=== PATIENT | female | born 1940 | race Caucasian/White ===

== ENCOUNTER → 2017-08-19 10:31 | Outpatient (CLI) | payer MEDICARE, OTHER, SELFPAY ==
--- NOTE | 2017-08-19 10:37 | HPBI_ITS ---
MAMMOGRAPHY - BILATERAL SCREENING REASON FOR EXAM: Female, 77 years old. Routine annual screening examination. PERTINENT HISTORY: Non-contributory. TECHNIQUE: Digital bilateral breast garcia (3D mammographic acquisition) in the CC and MLO projections. 2-D mediolateral oblique (MLO) and craniocaudad (CC) views of both breasts were obtained. CAD: Full Field Digital Mammography with Computer Added Detection was performed. COMPARISON: Comparison is made with prior outside examination dated October 13, 2015. FINDINGS: Breast Composition: There are scattered areas of fibroglandular density. There are no dominant masses or suspicious calcifications. Stable benign-appearing bilateral axillary lymph nodes. No other significant abnormalities are identified. There has been no significant change since the prior study. HPBI/SCREENING MAMM (CAD), BILAT IMPRESSION: Stable bilateral screening mammogram. Yearly follow-up mammogram recommended. (A) ASSESSMENT CATEGORY: BIRADS Category 2: Benign. A letter regarding these results will be sent to the patient by the facility within 30 days. Approximately 10% of breast cancers are not detected by mammography. A normal mammogram should not delay biopsy of a clinically suspicious abnormality. [id number] Electronically Signed: Carlos Manuel Franco MD at 8:28 EDT Tel [phone], Service support ,
== END ==
PROVIDERS: Family Provider Internal Medicine; PCP Internal Medicine; Visit Provider Internal Medicine
DX: Z12.31 Encounter for screening mammogram for malignant neoplasm of breast (principal)
CPT/HCPCS: 77063; 77067

== ENCOUNTER 2017-09-13 07:15 | Day surgery (SDC) | payer MEDICARE, OTHER, SELFPAY ==
[2017-09-13] VITALS (9 sets, daily range): BP systolic 104–142; BP diastolic 56–87; PULSE 58–80; RESP 16–18; TEMP 36.2–37; O2SAT 95–99; BMI 29.0
--- NOTE | 2017-09-13 08:48 | COLBX_PTH ---
PATIENT: CAITY MORALES LOC: EN U#:[id number] AGE/SX: 77/F ROOM: RE09/13/[address]: Dr. Jovanny Kate MD : 1940 BED: DIS: 09/14/2017 SPEC #: [id number] RECD: 09/13/17 11:01 STATUS: MELLISSA ARY #: [id number] [place]: 09/13/17 08:[address]: Jovanny Kate DEPT: SURGICAL PATHOLOGY RECD BY: Broderick Moe ENTERED: 09/13/17 12:35 SP TYPE: COLON BX OTHR DR: Dr. Mera Rodrigues DO Tissues: Descending colon Procedures: Surgery Specimen Level IV HEADER OPERATION: Colonoscopy PRE-OP DIAGNOSIS: Screening TISSUE SUBMITTED: Descending colon polyp MICROSCOPIC DIAGNOSIS Descending colon polyp, biopsy: Tubular adenoma. AM:henry 09/14/17 COMMENT The cauterized margin of excision is free of adenomatous change. MICROSCOPIC DESCRIPTION Slides are reviewed. GROSS DESCRIPTION Received in fixative is one container labeled with the patient's name and designated descending colon polyp. The specimen consists of a pedunculated richey-pink polyp measuring 1 x 0.5 x 0.5 cm. The pedicle measures 0.5 cm in length and 0.5 cm in diameter. The base of the polyp is inked black. The polyp is bisected and submitted entirely in one cassette. / SJ:rg 09/13/17 TC:1 CPT: 50502
--- NOTE | 2017-09-13 09:29 | PCM.OPRPT ---
Problem List (1) Positive colorectal cancer screening using Cologuard test Status: Acute Report of Operation Date of Procedure: 09/13/17 Pre-Operative Diagnosis: r19.5 positive colorectal cancer screening using colon guard test Post-Operative Diagnosis: Same Surgery/Procedure Performed:: Colonoscopy with polypectomy with injection of epinephrine and placement of clips for hemostasis. Type of Anesthesia:: MAC Anesthesiologist: Garry Barillas Description of Procedure: Into the operating room and placed in the left lateral decubitus position. She was given graded anesthesia. The scope was inserted into the rectum and directed through the sigmoid colon, descending colon, transverse colon, ascending colon, to the cecum. Operative findings: 1. Cecum: Normal appearance no mass lesions normal ileocecal valve. 2. Ascending colon: Normal appearance no mass lesions. 3. Transverse colon: Normal appearance no mass lesions. 4. Descending colon: Normal appearance no mass lesions. 5. Sigmoid colon: Large polyp on a long stalk was identified I remove this with snare cautery technique I had bleeding at the base in which I had to inject epinephrine approximately 3 cc and I placed 3 clips on this area to achieve hemostasis. I probably lost close to 50 cc of blood during this part of the procedure. The polyp was retrieved and sent to pathology for permanent sectioning 6. Rectum: Normal appearance no mass lesions. Patient will more likely need to have another colonoscopy between 1 and 3 years depending on the path report. I am going to keep the patient overnight secondary to the bleeding that we encountered to make sure that we have no further blood loss. - Admit VTE Documentation VTE Present on Admission: No VTE Mechan Device Prophylaxis: None VTE Pharm Prophylaxis ordered?: No Reason prophylaxis not ordered:: Treatment Not Indicated
--- NOTE | 2017-09-13 09:36 | PCM.PN.SRG ---
Patient Problems: Active and Suspected Problems (Last Reviewed 08/28/17 @ 13:50 by Jovanny Kate MD) Positive colorectal cancer screening using Cologuard test (Acute) Subjective: Patient underwent a colonoscopy and had a polyp in the sigmoid colon I removed with snare cautery technique but I ran into significant amount of bleeding from the base of this. It took quite some time to retrieve the polyp as well as to inject the base of the polyp with approximately 3 cc of epinephrine. I was able to place 3 clips on the area and when finished I had good hemostasis. Given the fact though that I lost so much blood I think it is quinonez to keep her overnight for observation. Objective: Patient's abdomen is soft and nontender it is not distended. - Physical Exam Vital Signs Temp Pulse Resp BP Pulse Ox 97.1 F L 74 18 113/80 95 09/13/17 07:31 09/13/17 07:31 09/13/17 07:31 09/13/17 07:31 09/13/17 07:31 Oxygen Delivery Method Room Air Weight: 163 lb 12.855 oz Body Mass Index (BMI) 29.0 Medical Necessity - Tobacco Use Smoking Status: Never smoker Assessment/Plan Active and Suspected Problems (Last Reviewed 08/28/17 @ 13:50 by Jovanny Kate MD) Positive colorectal cancer screening using Cologuard test (Acute) We will keep the patient overnight for observation obtain some laboratory values to make sure her hemoglobin remained stable. She will be able to be discharged hopefully in the morning.
[2017-09-13 10:12] LABS: Hematocrit 37.9 % (37-47); Hemoglobin 12.7 g/dl (12.0-15.0); Mean Corp Hgb Conc 33.5 g/gl (32-36); Mean Corpuscular Hgb 30.8 pg (27.0-32.0); Mean Platelet Vol. 8.7 fl (6.2-12.0); Platelet Count 214 K/mm3 (150-450); RBC Distribution Width CV 13.1 % (11.6-14.6); RBC Distribution Width SD 44.1 fl (35.1-43.9); Red Blood Count 4.12 M/mm3 (4.2-5.4); Scan Indicated on CBC? Y/N NO; White Blood Count 6.1 K/mm3 (4.4-11.0)
--- NOTE | 2017-09-13 10:25 | RAD_ITS ---
STUDY: X-RAY - ABDOMEN/PELVIS REASON FOR EXAM: Female, 77 years old. Abdominal distention following a colonoscopy. TECHNIQUE: AP supine and upright views of the abdomen and pelvis. COMPARISON: None. FINDINGS: Normal visualized lung bases. Mild gaseous distention of the colon with her mild residual fecal material. There is no demonstrated free abdominal air. The visualized liver, spleen and kidneys are grossly normal in size and morphology. Normal soft tissue structures. Normal visualized osseous structures. RAD/Abdomen Single View IMPRESSION: Gas filled colon in keeping with recent colonoscopy. Electronically Signed: Carlos Manuel Franco MD at 10:39 EDT Tel [phone], Service support ,
[2017-09-13] MEDS: Lactated Ringers 1,000 ML 70 ML IV (17:44)
[2017-09-14 02:00] VITALS: BP 102/48; PULSE 79; RESP 16; TEMP 36.9; O2SAT 98
--- NOTE | 2017-09-14 07:06 | PCM.PN.SRG ---
Patient Problems: Active and Suspected Problems (Last Reviewed 08/28/17 @ 13:50 by Jovanny Kate MD) Positive colorectal cancer screening using Cologuard test (Acute) Subjective: Patient evaluated resting comfortably in the chair. She denies rectal bleeding overnight. She denies abdominal pain/cramping. - Physical Exam General: Alert, Oriented x3, Cooperative Abdomen: Bowel Sounds Present, Soft, Non Tender, Non-Distended Vital Signs Temp Pulse Resp BP Pulse Ox 98.5 F 79 16 102/48 L 98 09/14/17 02:00 09/14/17 02:00 09/14/17 02:00 09/14/17 02:00 09/14/17 02:00 Oxygen Delivery Method Room Air Weight: 163 lb 12.855 oz Body Mass Index (BMI) 29.0 Intake and Output for Last 24 Hours 09/12/17 09/13/17 09/14/17 23:59 23:59 23:59 Intake Total 2950 / 2950 329 / 329 Balance 2950 / 2950 329 / 329 Laboratory Tests Past 24 Hrs 09/13/17 10:02 WBC 6.1 RBC 4.12 L Hgb 12.7 Hct 37.9 MCV 92.0 MCH 30.8 MCHC 33.5 RDW 13.1 RDW Differential 44.1 H Plt Count 214 MPV 8.7 Medical Necessity - Tobacco Use Smoking Status: Never smoker Assessment/Plan Active and Suspected Problems (Last Reviewed 08/28/17 @ 13:50 by Jovanny Kate MD) Positive colorectal cancer screening using Cologuard test (Acute) I am following this patient in conjunction with Dr. Kate Impression: post polypectomy bleed Ready for discharge
--- NOTE | 2017-09-14 07:09 | PCM.DC.GS ---
Discharge Diet: No Restrictions Discharge Activity: Return to Normal Activity Call your doctor if your incision/area has: - - Bleeding from the rectum Allergies/Adverse Reactions: Allergies Penicillins Allergy (Verified 09/06/17 15:47) Rash Medications to take at Discharge calcium carbonate 600 mg (1,500 mg)-vitamin D3 400 unit tablet 1 tab PO QDAY 08/28/17 cholecalciferol (vitamin D3) 1,000 unit capsule 2,000 unit PO QDAY cap 08/28/17 multivitamin tablet 1 tab PO QDAY 08/28/17 omega-3 fatty acids-fish oil 300 mg-1,000 mg capsule 1 cap PO QDAY cap 08/28/17 vitamin B complex tablet 1 tab PO QWEEK 08/28/17 Primary Care Physician: Mera Rodrigues DO [Primary Care Provider] - Please Follow Up With: Jovanny Kate MD - [phone] When: 1 week at [facility] 2nd floor Proposed Discharge Date: 09/14/17
[2017-09-14 07:10] VITALS: BP 153/73; PULSE 73; RESP 14; TEMP 36.8; O2SAT 96
== END 2017-09-14 07:10 | disposition home or self-care (01) ==
LOC: EN 07:15 → AC 07:17 → MS2 10:10
PROVIDERS: Family Provider Internal Medicine; PCP Internal Medicine; Visit Provider Surgery
PROC: 0DJD8ZZ Inspection of Lower Intestinal Tract, Via Natural or Artificial Opening Endoscopic (ICD-10-PCS; CPT 45378; principal; 2017-09-13 08:25)
DX: D12.4 Benign neoplasm of descending colon (principal); R19.5 Other fecal abnormalities; E55.9 Vitamin D deficiency, unspecified; Z78.0 Asymptomatic menopausal state
CPT/HCPCS: 45385; 36415; 74018; 85027; 88305; J7120; J1610

== ENCOUNTER → 2018-12-31 13:42 | Outpatient (CLI) | payer MEDICARE, OTHER, SELFPAY ==
--- NOTE | 2018-12-31 13:46 | BI_ITS ---
MAMMOGRAPHY - BILATERAL DIAGNOSTIC REASON FOR EXAM: Female, 78 years old. Nipple discharge PERTINENT HISTORY: Non-contributory. TECHNIQUE: Digital examination. Mediolateral oblique (MLO) and craniocaudad (CC) views of both breasts were obtained, along with 3-D garcia synthesis. CAD: CAD was performed on this study. COMPARISON: 08/19/2017 FINDINGS: Breast Composition: There are scattered areas of fibroglandular density. There is asymmetric retroareolar density in the right breast which needs further evaluation with ultrasound. No other significant abnormalities are identified. BI/DIAG MAMM W/CAD, BILAT IMPRESSION: Further ultrasonographic evaluation recommended, as described above. ASSESSMENT CATEGORY: BIRADS Category 0: Incomplete. Need additional imaging evaluation. A letter regarding these results will be sent to the patient by the facility within 30 days. FOLLOW UP RECOMMENDATION: Ultrasound Recommended. (I) Approximately 10% of breast cancers are not detected by mammography. A normal mammogram should not delay biopsy of a clinically suspicious abnormality. Electronically Signed: García King MD at 14:39 EDT , Service support ,
--- NOTE | 2018-12-31 13:46 | US_ITS ---
STUDY: ULTRASOUND BREAST - RIGHT REASON FOR EXAM: Female, 78 years old. Nipple discharge TECHNIQUE: Axial and longitudinal images of the RIGHT breast were performed with a high resolution ultrasound transducer. COMPARISON: None. FINDINGS: RIGHT Breast: Ultrasound evaluation of the retroareolar region of the right breast shows only normal dense fibroglandular tissue. There is no suspicious solid or cystic mass, architectural distortion, or shadowing calcifications. US/Breast Limited Unilateral IMPRESSION: No suspicious sonographic findings ASSESSMENT CATEGORY: BIRADS Category 1: Negative. A letter regarding these results will be sent to the patient by the facility within 30 days. Electronically Signed: García King MD at 15:10 EDT , Service support ,
== END ==
PROVIDERS: Family Provider Internal Medicine; PCP Internal Medicine; Referring Provider Nurse Practitioner; Visit Provider Nurse Practitioner
DX: N64.52 Nipple discharge (principal)
CPT/HCPCS: 76642; 77062; 77066; G0279

== ENCOUNTER → 2020-01-02 09:50 | Outpatient (CLI) | payer MEDICARE, OTHER, SELFPAY ==
[2019-08-08 06:05] VITALS: BMI 30.5
--- NOTE | 2020-01-02 09:53 | BD_ITS ---
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 COMPARISON: Comparison is made with prior examination dated 03-17-16. FINDINGS: Lumbar Spine (L1-L4): g/cm2 (1.098) / T-score (-0.6) / Z-score (1.2) Findings are suggestive of normal bone density with a low fracture risk. Left Femur Total: g/cm2 (0.937) / T-score (-0.6) / Z-score (1.4) Left Femoral Neck: g/cm2 (0.873) / T-score (-1.2) / Z-score (0.9) Right Femur Total: g/cm2 (0.954) / T-score (-0.4) / Z-score (1.5) Right Femoral Neck: g/cm2 (0.905) / T-score (-1.0) / Z-score (1.1) The T-Scores on the most recent prior examination were: Lumbar Spine (L1-L4): There has been improvement of bone density since the previous examination. Left Femur Total: which represents no significant change. . Right Femur Total: which represents a worsening of 0.3%. BD/Dexa Bone Density Study IMPRESSION: The patient is considered osteopenic as outlined below according to World David Organization (WHO) criteria with a low fracture risk. There has been improvement of bone density since the previous examination. Reference Information: The T-score is the number of standard deviations above or below the standard which is normal for young adults at their peak bone mineral density. The World Health Organization (WHO) interprets the T-scores as follows: Above -1 Normal bone density Between -1 and -2.5 Osteopenia Equal to / or below -2.5 Osteoporosis As a practical clinical guideline, osteopenia may be graded as follows: Mild -1 through -1.5 Moderate -1.6 through -2.0 Severe -2.1 through -2.4 The Z-score is the number of standard deviations above or below age-matched controls. A Z-score of less than -1.5 would be considered abnormal. References: 1. NIH Osteoporosis and Related Bone Diseases http://www.osteo.org 2. International Society for Clinical Densitometry http://www.iscd.org 3. National Osteoporosis Foundation http://www.nof.org Electronically Signed: Carlos Manuel Franco, at 8:43 EDT , Service support ,
--- NOTE | 2020-01-02 10:28 | BI_ITS ---
MAMMOGRAPHY - BILATERAL SCREENING 3-D TOMOSYNTHESIS REASON FOR EXAM: Female, 79 years old. Routine screening PERTINENT HISTORY: NO FAM HX -- NO SX -- HX BLOODY DISCHARGE RT NIPPLE RT U/S DONE =NEGATIVE -- BILAT KERATOSIS FLAT -NOT MARKED. TECHNIQUE: 2-D mammograms and 3-D Tomosynthesis of the breast (s) were performed. CAD was performed. COMPARISON: 12/31/2018 FINDINGS: The breast composition is composed of scattered fibroglandular density. Scattered benign calcifications are seen. No dense spiculated masses or suspicious microcalcifications are identified. No architectural distortion is identified. There is no skin thickening or retraction. There has been no significant change since the prior study. BI/SCREEN MAMM (CAD) W/ALEJANDRA BILAT IMPRESSION: No mammographic signs of malignancy. Routine yearly mammograms recommended. ASSESSMENT CATEGORY: BIRADS Category 1: Negative. A letter regarding these results will be sent to the patient by the facility within 30 days. FOLLOW UP RECOMMENDATION: Yearly follow up mammogram recommended. (A) Approximately 10% of breast cancers are not detected by mammography. A normal mammogram should not delay biopsy of a clinically suspicious abnormality. Electronically Signed: García King MD at 11:48 EDT , Service support ,
== END ==
PROVIDERS: PCP Internal Medicine; Referring Provider Internal Medicine; Visit Provider Internal Medicine
DX: Z12.31 Encounter for screening mammogram for malignant neoplasm of breast (principal); Z78.0 Asymptomatic menopausal state
CPT/HCPCS: 77063; 77067; 77080

== ENCOUNTER 2020-01-15 07:21 | Day surgery (SDC) | payer MEDICARE, OTHER, SELFPAY ==
[2020-01-06 13:19] VITALS: BMI 30.8
--- NOTE | 2020-01-10 09:06 | EKG12_ITS ---
Test Reason : PREOP Blood Pressure : / mmHG Vent. Rate : 064 BPM Atrial Rate : 064 BPM P-R Int : 184 ms QRS Dur : 094 ms QT Int : 400 ms P-R-T Axes : 073 043 071 degrees QTc Int : 412 ms Sinus rhythm with Premature atrial complexes Otherwise normal ECG Confirmed by DARIO FROST, DORIS ([id number]), avid editor FARZANA BISHOP ([id number]) on 01/13/2020 2:05:39 PM Referred By: De Higgins Confirmed By:RJ BISHOP MD
[2020-01-10 09:35] LABS: Hematocrit 41.9 % (37-47); Hemoglobin 13.7 g/dL (12.0-15.0); Mean Corp Hgb Conc 32.7 g/dL (32-36); Mean Corpuscular Hgb 30.8 pg (27.0-32.0); Mean Corpuscular Volume 94.2 fL (81-99); Platelet Count 264 K/mm3 (150-450); RBC Distribution Width CV 12.7 % (11.6-14.6); RBC Distribution Width SD 43.8 fl (35.1-43.9); Red Blood Count 4.45 M/mm3 (4.2-5.4); White Blood Count 4.3 K/mm3 (4.4-11.0)
[2020-01-10 09:50] LABS: Anion Gap 1 (5-15); BUN 19 mg/dL (7-18); BUN/Creat Ratio 26.4 RATIO (10-20); Calcium,Total 9.1 mg/dL (8.5-10.1); Chloride 108 mmol/L (98-107); Creatinine, Serum 0.72 mg/dL (0.55-1.02); EST Glomerular Filtration Rate 83 mL/min (>60); Est Glom Filt Rate - Afr Amer 100 mL/min (>60); Glucose 98 mg/dL (74-106); Potassium 4.1 mmol/L (3.5-5.1); Sodium Level 140 mmol/L (136-145)
--- NOTE | 2020-01-15 | MISC_PTH ---
PATIENT: CAITY MORALES LOC: [facility] [place] U#:[id number] AGE/SX: 79/F ROOM: RE01/15/[address]: Dr. De Higgins MD : 1940 BED: DIS: 01/15/2020 SPEC #: [id number] RECD: 01/15/20 11:01 STATUS: MELLISSA ARY #: [id number] [place]: 01/15/20 00:[address]: De Higgins DEPT: SURGICAL PATHOLOGY RECD BY: Kalyan Ramírez ENTERED: 01/15/20 11:02 SP [place] [facility] [place]: Dr. 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 See cancer summary in the comment section. SJ:rg 01/17/20 COMMENT DUCTAL CARCINOMA IN SITU SUMMARY Procedure - excision Specimen - excisional biopsy Specimen laterality - right Tumor site - retroareolar tissue Size (extent) of DCIS: Estimated size of DCIS - 1.7 x 1.3 cm Number of blocks with DCIS - 2 Number of block examined - 2 Histologic type - ductal carcinoma in situ Architectural pattern - papillary and micropapillary Nuclear grade - nuclear grade 1 Necrosis - not identified Margin - margins uninvolved by DCIS. The tumor is 1 mm from the closest margin. Regional lymph nodes - no lymph nodes submitted or found. Microcalcifications - not identified Additional Pathologic Findings: -Nipple adenoma. - Focal atypical ductal hyperplasia. Ancillary Studies ([id number]): ER - >95%, strong intensity AR - >95%, strong intensity Her2 aki (IHC) - negative (0) Clinical history - bloody nipple discharge. Pathologic Staging: pTis(DCIS) pNx pMx The above summary is in compliance with College of [place] Path[employer] (CAP) Cancer Protocols Checklist and [place] Joint Committee on Cancer (AJCC), Staging Manual, 8th Ed. Immunohistochemistry ([id number]) supports the above diagnosis. Case has been reviewed in consultation with Dr. Dupree who concurs with the above diagnosis. IDC:AM MICROSCOPIC DESCRIPTION Slides are reviewed. GROSS DESCRIPTION Received in fixative is one container labeled with the patient's name and designated retroareolar tissue. The specimen consists of an irregular fragment of yellow fatty tissue measuring 3.5 x 2 x 1 cm. Sections reveal homogenous yellow cut surfaces. No mass lesion is identified. The specimen is sectioned and totally submitted in two cassettes. / AM:henry 01/15/20 TC:0 CPT:63943
--- NOTE | 2020-01-15 | IMM_PTH ---
PATIENT: CAITY MORALES LOC: [facility] [place] U#:[id number] AGE/SX: 79/F ROOM: RE01/15/[address]: Dr. De Higgins MD : 1940 BED: DIS: 01/15/2020 SPEC #: [id number] RECD: 01/17/20 12:40 STATUS: MELLISSA REQ #: [id number] [place]: 01/15/20 00:[address]: De Higgins DEPT: IMMUNOHISTOCHEMISTRY RECD BY: Roxana Scott ENTERED: 01/17/20 12:41 SP TYPE: IMMUNO OTHR DR: Dr. Mera Rodrigues DO Tissues: Right breast, NOS Procedures: CALPONIN-1 (add) CK8 (add) E-CAD (add) HER2 JAYDEN (add) DE (add) P40 (add) ER (initial) PHYSICIAN & INSTITUTION [place] [id number] SPECIMEN INFORMATION: Tissue Source: Right retroareolar tissue Clinical Info: Bloody nipple discharge Specimen Number: [id number] #1 CPT code: 92884, 36054 x3, 45209 x3 METHODOLOGY: Deparaffinized sections of prefer/formalin-fixed tissue or PAP/DQ stained slides are incubated with monoclonal/polyclonal antibodies/oligonucleotide probes. Localization is made via biotin free immunoperoxidase method. Appropriate controls are performed and reacted as expected. Results on target cell population are indicated in the following table: RESULTS: ANTIBODY / CLONE RESULT Block 1 E-Cad (ECH-6) positive CK8 ([id number]) positive Calponin-1 (JS173M) positive, focal P40 (BC28) positive, focal MORPHOMETRIC ANALYSIS ER (clone 6F11) >95%, strong intensity DE (clone 16/1E2) >95%, strong intensity Her-2Neu (clone CB11) negative (0) The prognostic test for HER2 is performed on formalin-fixed paraffin embedded tissue. A 3+ (positive) staining pattern is defined as intense, homogeneous, complete, circumferential membranous staining in >10% of contiguous tumor cells. A similar weak (2+) staining pattern is interpreted as equivocal. MIKE follow-up testing is recommended for all equivocal cases. Positivity/negativity for ER/DE is reported if > or < 1% of the tumor cells are immuno- reactive, respectively. The ASCO/CAP criteria is used for scoring. Reference: Journal of Clinical Oncology, 2013; 31:6488-2847 & 2010; 16:0569-3241. Duration of fixation: 10 Hrs; Sample Adequate: Yes. These assays have not been validated on decalcified tissues. Results should be interpreted with caution given the likelihood of false negativity on decalcified specimens. These tests were developed and their performance characteristics determined by [facility]. They may not have been cleared or approved by the U.S. Food and Drug Administration. The FDA has determined that such clearance or approval is not necessary. The above immunohistochemical/dualISH markers are ordered and reviewed by the Pathologist. INTERPRETATION: Right retroareolar tissue, biopsy: Ductal carcinoma in situ. SJ:henry 01/20/20 Case has been reviewed in consultation with Dr. Dupree who concurs with the above diagnosis. IDC:AM
[2020-01-15 07:42] VITALS: BP 145/75; PULSE 70; RESP 16; TEMP 36.8; O2SAT 97; BMI 30.9
[2020-01-15] MEDS: Lactated Ringers 1,000 ML 100 ML IV ×2 (07:56→10:39)
--- NOTE | 2020-01-15 09:05 | HP.PCM_ITS ---
Problem List (1) Nipple discharge, bloody Status: Acute History and Physical Date of Admission: 01/15/20 Intake Visit Reasons: 1 YEAR F/U R BRST, MAMMO 01/02/2020 [facility] Chief Complaint: follow up mammogram/nipple discharge Fruit Grower Required: No Is patient in pain?: No Allergies Penicillins Allergy (Verified 01/06/20 13:00) Rash Medications calcium carbonate 500 mg calcium (1,250 mg) tablet 500 mg PO BID 08/08/19 [History Confirmed 01/06/20] mecobalamin (vitamin B12) 5,000 mcg disintegrating tablet mcg PO 08/08/19 [History Confirmed 01/06/20] multivitamin with minerals 1 tab PO BID tab 08/08/19 [History Confirmed 01/06/20] omega-3 fatty acids 1,000 mg capsule 1,000 mg PO DAILY 08/08/19 [History Confirmed 01/06/20] vitamin E (dl, acetate) 400 unit capsule 400 unit PO DAILY 08/08/19 [History Confirmed 01/06/20] vitamins A,C,D-izhg-xdpyvp 7,160 unit-113 mg-100 unit tablet 2 tab PO BID 08/08/19 [History Confirmed 01/06/20] COUNTS INCLUDE 234 BEDS AT THE [facility] Medical History (Updated 08/08/19 @ 09:[address] De Higgins MD) Nipple discharge, bloody (Acute) Nipple discharge (Acute) Positive colorectal cancer screening using Cologuard test (Acute) Post-menopausal (Acute) Vitamin D deficiency (Acute) Surgical History (Updated 08/08/19 @ 09:10 by Halle Mejias) History of right breast biopsy (Acute) History of right cataract surgery (Acute) S/P colonoscopy (Acute) Family History Brother Hypercholesterolemia Sister Diabetes Hypertension Father Diabetes Hypertension Social History (Updated 01/06/20 @ 13:[address] De Higgins MD) Smoking Status: Never smoker alcohol intake: never substance use type: does not use HPI HPI HPI: CAITY MORALES, is a 79 F who presents to the office today for ongoing surgical consultation regarding breast checks. As noted August 08, 2019 when she presented for evaluation patient of right nipple discharge she stated the nipple charge had ceased. We were not able to demonstrate any on that day. She was taking fish oil I asked her to hold that. So she actually has held the fish oil but instead then she started vitamin D. She states that in November she had recurrence of the right nipple discharge. She brings in some tissues that appear to have some old dried blood. She had updated mammograms January 02, 2020 BI-RADS Category 1 My previous notes from August 08, 2019 reflect the following: HPI: CAITY MORALES, is a 79 F who presents to the office today for Surgical consultation regarding bloody discharge from the right nipple. The patient is referred by her primary care physician Dr. Mera Rodrigues and a written compromise surgical consult was recommendations will be returned to her. 79-year-old female. A0. Menarche at age 15. First child was born when she was 30. She did not breast-feed. Family history is negative for breast cancer. She was not on any estrogen replacement. December 2018 she claims that she had bloody discharge from the right nipple lasting 1 week. She then had a long period of no symptoms from the right breast until just recently she again had a one-week incidence of bloody discharge right nipple. There is been no tenderness. No trauma. No history of breast abscess. She does take fish oil. To help evaluate her as noted below she had a right unilateral mammogram and breast ultrasound. Interpretation BI-RADS Category 1 negative. The patient states that her discharge has ceased 01/02/20 [facility] Imaging Services [address] [place] [address] SCREEN MAMM (CAD) W/ALEJANDRA BILAT MR#: [id number] Name: CAITY MORALES [facility] #:[id number] : [id number] From: Elier King MD PCP:Dr. Mera Rodrigues, DO Status:REG CLI Study:SCREEN MAMM (CAD) W/ALEJANDRA BILAT Date of Exam:01/02/20 Exam#[id number] Ordering Dr: Mera Rodrigues DO MAMMOGRAPHY - BILATERAL SCREENING 3-D TOMOSYNTHESIS REASON FOR EXAM: Female, 79 years old. Routine screening PERTINENT HISTORY: NO FAM HX -- NO SX -- HX BLOODY DISCHARGE RT NIPPLE RT U/S DONE =NEGATIVE -- BILAT KERATOSIS FLAT -NOT MARKED. TECHNIQUE: 2-D mammograms and 3-D Tomosynthesis of the breast (s) were performed. CAD was performed. COMPARISON: 12/31/2018 FINDINGS: The breast composition is composed of scattered fibroglandular density. Scattered benign calcifications are seen. No dense spiculated masses or suspicious microcalcifications are identified. No architectural distortion is identified. There is no skin thickening or retraction. There has been no significant change since the prior study. BI/SCREEN MAMM (CAD) W/ALEJANDRA BILAT IMPRESSION: No mammographic signs of malignancy. Routine yearly mammograms recommended. ASSESSMENT CATEGORY: BIRADS Category 1: Negative. A letter regarding these results will be sent to the patient by the facility within 30 days. FOLLOW UP RECOMMENDATION: Yearly follow up mammogram recommended. (A) Approximately 10% of breast cancers are not detected by mammography. A normal mammogram should not delay biopsy of a clinically suspicious abnormality. Electronically Signed: García King MD at 11:48 EDT , Service support , HPI HPI HPI: CAITY MORALES, is a 79 F who presents to the office today for ROS General General: No weight change, appetite, fatigue, colon cancer, breast cancer or weakness HEENT HEENT: No difficulty swallowing, eye injury, eye surgery, swollen glands or hoarseness Endo Endocrine: No thyroid disease, diabetes mellitus, thyroid cancer, Hair loss, heat intolerance or cold intolerance Breast Breast: Yes nipple discharge; no left breast lump, right breast lump, breast pain, abnormal mammogram, abnormal US or breast enlargement Cardio Cardiovascular: No murmur, pacemaker, heart disease, atrial fibrillation, high blood pressure, heart attack, heart stent, palpitations, shortness of breat with exertion or chest pain Resp Respiratory: No shortness of breath, No sleep apnea, No cough, No COPD, No asthma, No emphysema, No wheezing Gastro Gastrointestinal: No abdominal pain, No nausea or vomiting, No diarrhea, No constipation, No blood in stool, No acid reflux, No hemorrhoids, No ulcers, No gallbladder problem, No black,tarry stools Serjio Hematologic: No blood thinners, No blood disorders, No bleeding, No anemia, No blood clots Neuro Neurologic: No weakness Exam Const General: cooperative, healthy appearing, comfortable, no acute distress Nutritional Appearance: average body habitus Orientation: alert, awake HENMT Head: normal to inspection Chest Breast Palpation: Yes nipple discharge Other: Right breast: Obvious bloody discharge central nipple. No focal mass. No axillary or clavicular neuropathy, very slight retraction of the nipple Left breast: Unremarkable lump nipple. No focal mass. No axillary or clavicular adenopathy Resp Effort & Inspection: normal respiratory effort Auscultation: clear to auscultation bilaterally Cardio Rate: regular rate Rhythm: regular rhythm Heart Sounds: no murmurs GI Palpation: soft, no hepatosplenomegaly Auscultation: normal bowel sounds Musc Cervical Spine: normal cervical lordosis Skin General: no rashes or lesions noted Neuro Cognition: normal cognition Extrem General: no calf tenderness Psych Affect: normal affect Assessment & Plan Problems 1. Nipple discharge, bloody N64.52 Plan Patient has had recurrence of her right nipple discharge. She stopped the fish oil but she started vitamin E. I have asked her to hold both of those. Her recent imaging is unremarkable. I recommend to her that we proceed with a wire ductal exploration right breast with excisional biopsy and I discussed the technique, benefit, risk and alternatives. She has had an opportunity to ask and have questions answered. She is aware to of the Covid-19 pandemic. She is aware that the [facility] is reporting a low local incidence. We will schedule and proceed at her discretion. I appreciate the ongoing opportunity of assisting with her surgical care. Cc: Dr. Mera Higgins M.D., F.A.C.S. Coding Level of Care Code Off vis,est,level 3 Diagnoses Nipple discharge, bloody N64.52 I have re-examined the patient. There are no clinical changes since date of exam. Procedure Criteria Procedure Type: Elective COVID Risk Discussion: The surgeon/proceduralist and patient have discussed in detail the risk of exposure to and/or potential harm posed by the COVID-19 virus with having a surgery/procedure at this time versus the risk of delaying the surgery/procedure. It is not possible to know either the risk of delaying the surgery or procedure or chance of getting an infection with perfect accuracy, but a joint decision was made between the patient and the surgeon/proceduralist to proceed at this time with the scheduled surgery/procedure as indicated on the consent form.
--- NOTE | 2020-01-15 09:06 | DCINST_ITS ---
Discharge Diet: No Restrictions Discharge Activity: May Not Drive - for 2-3 days or while taking narcotic pain meds. May shower in (days): 1 Lifting Restrictions: 10 pounds for 1 week. Call your doctor if your incision/area has: Continuous Slow Oozing, Sudden In creased Bleeding Call your doctor if you observe: Fever of 101 or Higher Suture Line Care: Avoid Pulling/Pushing, Avoid Pinching/Bending Remove Dressing in (days):: 1 - Remove bulky dressing tomorrow. May leave any opsite dressing for 3-4 days. Keep dressing in place until your follow-up appointment. Additional Dressing/Incision Instructions:: Remove bulky dressing tomorrow. May leave any opsite dressing for 3-4 days. Keep dressing in place until your follow-up appointment. Allergies/Adverse Reactions: Allergies Penicillins Allergy (Verified 01/15/20 07:38) Rash Medications to take at Discharge calcium carbonate 500 mg calcium (1,250 mg) tablet 500 mg PO BID 08/08/19 mecobalamin (vitamin B12) 5,000 mcg disintegrating tablet 5,000 mcg PO DAILY 08/08/19 multivitamin with minerals 1 tab PO BID tab 08/08/19 Primary Care Physician: Mera Rodrigues DO [Primary Care Provider] - Please Follow Up With: De Higgins MD When: Appt. [phone] Approx. 10 days please
[2020-01-15] MEDS: Bupivacaine Mpf 0.5% 30 ML VIAL (09:50)
--- NOTE | 2020-01-15 10:07 | OP.PCM_ITS ---
Problem List (1) Nipple discharge, bloody Status: Acute Report of Operation Date of Procedure: 01/15/20 Pre-Operative Diagnosis: Bloody right nipple discharge Post-Operative Diagnosis: Same Surgery/Procedure Performed:: Ductal exploration with excisional biopsy right breast Description of Surgical Findings:: Timeout and informed consent was obtained. 79-year-old female was taken to the operating room placed supine on the table and underwent general anesthesia. Clindamycin 900 mg were given intravenously. The right breast was sterilely prepped draped. The seventh that centrally there was a brownish discharge. I inserted a lacrimal duct probe. I then made a periareolar incision from 1:00 to 3:00. Sharp dissection was was carried down retroauricularly and discolored ductules encountered. Using the probe as a guide I did sharp dissection in a cylindrical fashion deeper into the breast and attempt to try to excise all of the tissue along the ductal plane. Hemostasis was obtained throughout with cautery. No focal mass was encountered. The specimen was submitted as the dissection was completed on the immediate undersurface of the nipple. The wound was closed with a deep layer of interrupted 3-0 Vicryl and then interrupted 4-0 Monocryl subdermal stitches. The lisset-incisional area was anesthetized with 0.5% Marcaine. A total of 27 cc. Steri-Strips Telfa OpSite b ulky dry dressing applied. Sponge and instrument and needle counts were reported to the surgeon to be correct. Blood loss minimal. Specimen is retroareolar breast tissue. Drains none. Blood loss minimal. The patient was taken to the recovery area in satisfactory edition without apparent complication De Higgins M.D., F.A.C.S. Type of Anesthesia:: General Anesthesiologist: Kimberly Connor
[2020-01-15 10:22] VITALS: BP 135/66; BP 145/75; PULSE 82; RESP 16; TEMP 36.1; O2SAT 95
[2020-01-15 10:31] VITALS: BP 143/71; BP 145/75; PULSE 78; RESP 17; O2SAT 96
[2020-01-15 10:45] VITALS: BP 139/68; BP 145/75; PULSE 77; RESP 16; O2SAT 97
[2020-01-15 10:52] VITALS: BP 145/75; BP 151/69; PULSE 77; RESP 17; TEMP 36.4; O2SAT 96
[2020-01-15 11:55] VITALS: BP 145/75; BP 161/68; PULSE 93; RESP 16; TEMP 36.1; O2SAT 93
== END 2020-01-15 11:57 | disposition home or self-care (01) ==
LOC: SDC 07:21 → AC 07:22
PROVIDERS: Anesthesiology; PCP Internal Medicine; Referring Provider Surgery; Visit Provider Surgery
PROC: (CPT 19120; principal; 2020-01-15 09:15)
DX: D05.11 Intraductal carcinoma in situ of right breast (principal); N64.52 Nipple discharge; Z11.59 Encounter for screening for other viral diseases; I49.1 Atrial premature depolarization
CPT/HCPCS: 19120; 36415; 80048; 85027; 87635; 88305; 88341; 88342; 93005; 94799; J7120; J2405; U0003

== ENCOUNTER 2020-08-13 11:45 | Outpatient (RCR) | payer MEDICARE, OTHER, SELFPAY ==
[2020-02-06 09:00] VITALS: BMI 30.7
[2020-04-29 13:47] VITALS: BMI 30.9
[2020-08-13] MEDS: COVID-19 VACC, MRNA(PFIZER)/PF 30 MCG/0.3 ML SYRINGE IM (12:19)
[2020-09-03] MEDS: COVID-19 VACC, MRNA(PFIZER)/PF 30 MCG/0.3 ML SYRINGE IM (12:12)
== END 2020-11-17 23:59 ==
LOC: IMMUN 11:45
PROVIDERS: PCP Internal Medicine; Referring Provider Family Medicine; Visit Provider Family Medicine
DX: Z23 Encounter for immunization (principal)
CPT/HCPCS: 0001A; 0002A; 91300

== ENCOUNTER → 2021-01-04 13:19 | Outpatient (CLI) | payer MEDICARE, OTHER, SELFPAY ==
[2020-02-06 09:00] VITALS: BMI 30.7
[2020-10-28 13:14] VITALS: BMI 31.1
--- NOTE | 2021-01-04 13:21 | BI_ITS ---
MAMMOGRAPHY - BILATERAL SCREENING REASON FOR EXAM: Female, 80 years old. Routine annual screening examination. PERTINENT HISTORY: Non-contributory. TECHNIQUE: Digital bilateral breast alejandra (3D mammographic acquisition) in the CC and MLO projections. 2-D mediolateral oblique (MLO) and craniocaudad (CC) views of both breasts were obtained. CAD: Full Field Digital Mammography with Computer Added Detection was performed. COMPARISON: Comparison is made with prior study dated 01/02/2020 and 12/31/2018. FINDINGS: Breast Composition: There are scattered areas of fibroglandular density. There are no dominant masses or suspicious calcifications. There is asymmetry of breast tissue where more breast tissue is seen in the right breast as compared to the left side. Stable benign appearing bilateral axillary lymph nodes. No other significant abnormalities are identified. There has been no significant change since the prior study. BI/SCRN MAMM (CAD)W/ALEJANDRA BILAT IMPRESSION: Stable bilateral screening mammogram. Yearly follow-up mammogram recommended. (A) ASSESSMENT CATEGORY: BIRADS Category 2: Benign. A letter regarding these results will be sent to the patient by the facility within 30 days. Approximately 10% of breast cancers are not detected by mammography. A normal mammogram should not delay biopsy of a clinically suspicious abnormality. [id number] Electronically Signed: Carlos Manuel Franco MD at 14:47 EDT , Service support ,
== END ==
PROVIDERS: PCP Internal Medicine; Referring Provider Internal Medicine Hematology & Oncology; Visit Provider Internal Medicine Hematology & Oncology
DX: Z12.31 Encounter for screening mammogram for malignant neoplasm of breast (principal)
CPT/HCPCS: 77063; 77067

== ENCOUNTER → 2022-01-05 | Outpatient (CLI) | payer MEDICARE, OTHER, SELFPAY ==
[2020-02-06 09:00] VITALS: BMI 30.7
--- NOTE | 2022-01-05 12:54 | BI_ITS ---
MAMMOGRAPHY - BILATERAL SCREENING REASON FOR EXAM: Female, 81 years old. Routine annual screening examination. PERTINENT HISTORY: Personal history of breast cancer. Prior right lumpectomy with radiation therapy. TECHNIQUE: Digital bilateral breast alejandra (3D mammographic acquisition) in the CC and MLO projections. 2-D mediolateral oblique (MLO) and craniocaudad (CC) views of both breasts were obtained. CAD: Full Field Digital Mammography with Computer Added Detection was performed. COMPARISON: Comparison is made with prior study dated 01/04/2021 and 01/02/2020. FINDINGS: Breast Composition: The breasts are heterogeneously dense, which may obscure small masses. There are no dominant masses or suspicious calcifications. Stable asymmetry of breast tissue, breast tissue seen in the right breast as compared to the left side. No other significant abnormalities are identified. There has been no significant change since the prior study. BI/SCRN MAMM (CAD)W/ALEJANDRA BILAT IMPRESSION: Stable bilateral screening mammogram. Yearly follow-up mammogram recommended. (A) ASSESSMENT CATEGORY: BIRADS Category 2: Benign. A letter regarding these results will be sent to the patient by the facility within 30 days. Approximately 10% of breast cancers are not detected by mammography. A normal mammogram should not delay biopsy of a clinically suspicious abnormality. [id number] Electronically Signed: Carlos Manuel Franco MD at 14:03 EDT ,
== END | disposition home or self-care (01) ==
LOC: OPBI 12:53
PROVIDERS: PCP Internal Medicine; Visit Provider Internal Medicine Hematology & Oncology
DX: Z12.31 Encounter for screening mammogram for malignant neoplasm of breast (principal)
CPT/HCPCS: 77063; 77067

== ENCOUNTER → 2023-01-09 | Outpatient (CLI) | payer MEDICARE, OTHER, SELFPAY ==
[2020-02-06 09:00] VITALS: BMI 30.7
--- NOTE | 2023-01-09 12:58 | BI_ITS ---
MAMMOGRAPHY - BILATERAL SCREENING REASON FOR EXAM: Female, 82 years old. Routine annual screening examination. PERTINENT HISTORY: Personal history of breast cancer. Prior right lumpectomy with radiation treatment. TECHNIQUE: Digital bilateral breast alejandra (3D mammographic acquisition) in the CC and MLO projections. 2-D mediolateral oblique (MLO) and craniocaudad (CC) views of both breasts were obtained. CAD: Full Field Digital Mammography with Computer Added Detection was performed. COMPARISON: Comparison is made with prior study January 05, 2022 and January 04, 2021. FINDINGS: Breast Composition: The breasts are heterogeneously dense, which may obscure small masses. There are no dominant masses or suspicious calcifications. Stable benign-appearing bilateral axillary lymph nodes. No other significant abnormalities are identified. There has been no significant change since the prior study. BI/SCRN MAMM (CAD)W/ALEJANDRA BILAT IMPRESSION: Stable bilateral screening mammogram. Yearly follow-up mammogram recommended. (A) ASSESSMENT CATEGORY: BIRADS Category 2: Benign. A letter regarding these results will be sent to the patient by the facility within 30 days. Approximately 10% of breast cancers are not detected by mammography. A normal mammogram should not delay biopsy of a clinically suspicious abnormality. [id number] Electronically Signed: Carlos Manuel Franco MD at 14:42 EDT ,
== END | disposition home or self-care (01) ==
LOC: OPBI 12:55
PROVIDERS: PCP Internal Medicine; Referring Provider Internal Medicine Hematology & Oncology; Visit Provider Internal Medicine Hematology & Oncology
DX: Z12.31 Encounter for screening mammogram for malignant neoplasm of breast (principal)
CPT/HCPCS: 77063; 77067

== ENCOUNTER 2023-06-12 13:54 | Day surgery (SDC) | payer MEDICARE, OTHER, SELFPAY ==
[2020-02-06 09:00] VITALS: BMI 30.7
[2023-06-12] VITALS (9 sets, daily range): BP systolic 141–192; BP diastolic 77–99; PULSE 80–93; RESP 14–16; TEMP 36.4–36.7; O2SAT 93–100; BMI 30.7
--- NOTE | 2023-06-12 14:10 | EX.ED.DYSGE1 ---
HPI History of Present Illness Chief Complaint: Foreign Body Informant: patient Onset/Context/Timing Onset: Today Narrative Narrative: Patient presents with foreign body sensation in her throat. She believes she is a piece of pork stuck in her throat for the past hour. She has not been able to get it to go up or down. She is tried taking a few sips of water. No difficulty breathing. She denies any difficulty swallowing in the past. She is never had an EGD. [facility] Medical History Ductal carcinoma in situ (DCIS) of right breast Nipple discharge Nipple discharge, bloody Positive colorectal cancer screening using Cologuard test Post-menopausal Vitamin D deficiency Home Medications calcium carbonate 500 mg calcium (1,250 mg) tablet (Calcium 500) 500 mg PO BID 08/08/19 [History Last Taken Unknown] mecobalamin (vitamin B12) 5,000 mcg disintegrating tablet 5,000 mcg PO DAILY 08/08/19 [History Last Taken Unknown] multivitamin with minerals (Hair,Skin and Nails tablet) 1 tab PO BID 08/08/19 [History Last Taken Unknown] ergocalciferol (vitamin D2) 1,250 mcg (50,000 unit) capsule 50,000 unit PO Q7D 01/29/20 [History Last Taken Unknown] vitamins A,C,N-ssak-sfwfqk 4,296 mcg-226 mg-90 mg capsule 1 tab PO DAILY 01/29/20 [History Last Taken Unknown] Allergy/AdvReac Type Severity Reaction Status Date / Time Penicillins Allergy Severe Rash Verified 06/12/23 13:56 Family History Brother Hypercholesterolemia Colon cancer Sister Diabetes Hypertension Father Diabetes Hypertension Surgical History History of right breast biopsy History of right cataract surgery S/P colonoscopy Status post right breast lumpectomy Status post right breast lumpectomy Social History household members: none Smoking Status: Never smoker second hand exposure: No alcohol intake: never substance use type: does not use albert/islam: Sabianism seatbelt use: always do you feel safe at home: Yes ROS ROS ED Constitutional Constitutional ED: Denies chills or fever(s) Eyes Eyes: Denies discharge from eye(s) ENT ENT ED: Reports other Details: Foreign body sensation in throat. ; Denies discharge from eye(s), rhinorrhea or sore throat Cardiovascular Cardiovascular: Denies chest pain Respiratory/Chest Respiratory/Chest: Denies cough or dyspnea Gastrointestinal Gastrointestinal: Denies abdominal pain, nausea or vomiting Musculoskeletal Musculoskeletal: Denies back pain or extremity pain Integumentary Denies Abrasions or rash Neurologic Neurologic: Denies headache(s) or weakness Psychiatric Psychiatric: Denies anxiety or depression Allergic/Immunologic Allergic/Immunologic ED: Denies lip swelling or urticaria EXAM Physical Exam Const Vital Signs: 06/12/23 13:55 06/12/23 14:05 Temperature 97.5 F L Temperature Source Temporal Pulse Rate 80 Respiratory Rate 16 Respiratory Effort Normal Respiratory Pattern Normal Blood Pressure 170/83 H Blood Pressure Mean 112 Pulse Ox 100 Oxygen Delivery Method Room Air Positive well nourished and well developed General Appearance ED: well developed HEENT Reports moist mucous membranes Eyes EOMs intact bilaterally Chest Wall inspection of chest normal and palpation of chest normal Resp normal respiratory effort and clear to auscultation bilaterally Cardio regular rate and regular rhythm GI non-tender Palpation: soft Extremity normal to inspection Neuro oriented x3 and no sensory deficits noted Motor Exam: strength 5/5 throughout Psych mental status grossly normal MDM MDM MDM Narrative Medical decision making narrative: IV line will be established. Patient be given a dose of glucagon. After glucagon patient still felt foreign body sensation but wanted to try something to drink. I gave her a sip of Coca-Cola which caused increased pain. She did not have to bring it back up but only had a very small amount. At this point she is given a second dose of glucagon and I spoke with Dr. Humphrey from surgery. He will be send to see the patient as well as calling an endoscopy, anesthesia, and the PACU staff. Discharge Plan Triage Chief Complaint: Foreign Body ED Provider: Marly Mesa Dx/Rx/DC Orders Clinical Impression: Esophageal foreign body Prescriptions: No Action mecobalamin (vitamin B12) 5,000 mcg disintegrating tablet 5,000 mcg tablet,disintegrating 5,000 mcg PO DAILY calcium carbonate [Calcium 500] 500 mg calcium (1,250 mg) tablet 500 mg PO BID multivitamin with minerals [Hair,Skin and Nails] Tablet 1 tab PO BID ergocalciferol (vitamin D2) 50,000 UNIT capsule 50,000 unit PO Q7D vitamins A,C,I-vqpa-gsswtm 1 EACH capsule 1 tab PO DAILY Primary Care Provider: Mera Rodrigues Referrals: Mera Rodrigues DO [Primary Care Provider] - Disposition Disposition: Acute Care Hospital [facility]
[2023-06-12] MEDS: Glucagon 1 MG/ML Syringe 0.5 MG IV (14:22)
--- OUTSIDE RECORDS SUMMARY | 2023-06-12 15:25 | XMS RPT_ITS | CCD ---
Author Name Unknown Address [address] [place] [address] Organization [facility] Care Team Providers Care Social Media Community Manager Name Role Phone Mera Hollingsworth Unavailable Jovanny Mccoy Unavailable Zahira Guerra Unavailable Unavailable Slarb, Nury Unavailable Unavailable Unavailable Unavailable Altagracia Morrell Unavailable De Higgins Unavailable Gravius, Catei Unavailable Unavailable Zahira Guerra Unavailable Unavailable Unavailable Unavailable Judi Noonan Unavailable Unavailable Fallon Ramirez Unavailable Unavailable Jovanny Mccoy Unavailable Michelet Umana Unavailable Mera Hollingsworth DO Unavailable De Higgins MD Unavailable Michelet Umana Unavailable Jovanny Mccoy MD Unavailable Judi Noonan LPN Unavailable Unavailable Zahira Guerra RN Unavailable Unavailable CiAltagracia thompson CNP E Unavailable Slarb CHEMICAL PRODUCTION MACHINE OPERATOR, Nury Unavailable Unavailable Cross CHEMICAL PRODUCTION MACHINE OPERATOR, Fallon Unavailable Unavailable Unavailable Unavailable Gravius SAW GRINDER, Catie Unavailable Unavailable Mera Hollingsworth DO Unavailable Ophelia Montiel Unavailable Manchak SAW GRINDER, Renae Unavailable Unavailable [place] IMELDA, Kayela Unavailable Unavailable Mera Hollingsworth DO Attending Unavailable Mera Hollingsworth DO Referring Unavailable Mera Hollingsworth DO Consulting Unavailable Terese Mcdonald MA Unavailable Unavailable Lilia DO, Mera K Primary Care Provider MERA HOLLINGSWORTH Primary Care Unavailable EMILIO PHAN Attending Unavailable EMILIO PHAN Attending Unavailable MERA HOLLINGSWORTH Primary Care Unavailable MERA HOLLINGSWORTH Primary Care Unavailable EMILIO PHAN Attending Unavailable Allergies Allergy Classification Reported Allergen(s) Allergy Type Date of Onset Reaction(s) Facility Penicillins (antibiotic) (3 sources) Penicillins; Translations: [Penicillins] Drug Allergy Rash [facility] Work Phone: (20 sources) Penicillins; Translations: [Penicillins] allergy to substance Rash [facility] Work Phone: Medications Current Medications Medication Drug Class(es) Dates Sig (Normalized) Sig (Original) calcium carbonate 1250 mg oral tablet (3 sources) Start: 08-08-2019 calcium carbonate (OS-SRINIVAS) 500 mg calcium (1,250 mg) tablet Take by mouth . 0 08/08/2019 Active omega-3 fatty acids/fish oil (fish oil-omega-3 fatty acids) 300-1,000 mg capsule (3 sources) Start: 02-19-2016 omega-3 fatty acids/fish oil (fish oil-omega-3 fatty acids) 300-1,000 mg capsule Take by mouth . 0 02/19/2016 Active vitamin e 268 mg oral capsule (3 sources) Start: 08-08-2019 vitamin E 400 UNIT capsule 1 (one) capsule (400 Units total) . 0 08/08/2019 Active Completed/Discontinued Medications Medication Drug Class(es) Dates Sig (Normalized) Sig (Original) biotin 1 mg chewable tablet (6 sources) take 1 ug by mouth once daily biotin 1,000 mcg oral tablet,chewable qd (1,000 mcg) Active Calcium 600/Vitamin D 600-400 MG-UNIT Oral Tablet Chewable (20 sources) Start: 02-19-2016 take 2 tablets by mouth once daily Calcium 600/Vitamin D 600-400 MG-UNIT Oral Tablet Chewable 2 (two) Tablet Chewable qd for 30 days Refills: 0 Ordered: 08-Sep-2021 Mera Hollingsworth DO, DO, Kathleen Start : 19-Feb-2016 Active Problems Active Problems Problem Classification Problem Date Documented Da te Episodic/Chronic Cataract (20 sources) Cataract; Translations: [Cataract] 12-24-2018 Chronic Disorders of lipid metabolism (20 sources) Hypercholesterolemia ; Translations: [Hypercholesteremia] 01-13-2020 Chronic Past or Other Problems Problem Classification Problem Date Documented Da te Episodic/Chronic Coronary atherosclerosis and other heart disease (20 sources) Coronary atherosclerosis and other heart disease Diabetes mellitus without complication (20 sources) Diabetes mellitus without complication External cause codes: Fall (2 sources) Fall in home; Translations: [Fall at home] 09-21-2020 Results Test Name Value Interpretation Reference Range Facil ity Vital Signs Date Time Vital Sign Value Performing Clinician Facility 03-20-2023 14:41-0400 Body height 162.6 cm Emilio Phan MD Work Phone: [facility] 03-20-2023 14:41-0400 Body mass index (BMI) [Ratio] 30.38 kg/m2 Emilio Phan MD Work Phone: [facility] 03-20-2023 14:41-0400 Body temperature 98.4 [degF] Emilio Phan MD Work Phone: [facility] 03-20-2023 14:41-0400 Body weight 80.29 kg Emilio Phan MD Work Phone: [facility] 11-08-2022 14:18-0400 Body height 162.6 cm Emilio Phan MD Work Phone: [facility] 11-08-2022 14:18-0400 Body mass index (BMI) [Ratio] 29.8 kg/m2 Emilio Phan MD Work Phone: [facility] 11-08-2022 14:18-0400 Body temperature 98.01 [degF] Emilio Phan MD Work Phone: [facility] 11-08-2022 14:18-0400 Body weight 78.74 kg Emilio Phan MD Work Phone: [facility] 09-20-2022 13:58-0400 Body height 162.6 cm Emilio Phan MD Work Phone: [facility] 09-20-2022 13:58-0400 Body mass index (BMI) [Ratio] 29.85 kg/m2 Emilio Phan MD Work Phone: [facility] 09-20-2022 13:58-0400 Body temperature 98.8 [degF] Emilio Phan MD Work Phone: [facility] 09-20-2022 13:58-0400 Body weight 78.88 kg Emilio Phan MD Work Phone: [facility] 08-18-2022 09:29-0500 Body height 162.56 cm Terese Mcdonald MA [facility] Work Phone: 08-18-2022 09:29-0500 Body mass index (BMI) [Ratio] 29.78 kg/m2 Terese Mcdonald MA [facility]; [facility] Work Phone: 08-18-2022 09:29-0500 Body surface area Derived from formula 1.84 m2 Terese Mcdonald MA [facility]; [facility] Work Phone: 08-18-2022 09:29-0500 Body temperature 96.7 [degF] Terese Mcdonald MA [facility]; [facility] Work Phone: 08-18-2022 09:29-0500 Body weight 78.7 kg Terese Mcdonald MA [facility]; [facility] Work Phone: 08-18-2022 09:29-0500 Diastolic blood pressure 78 mm[Hg] Terese Mcdonald MA [facility]; [facility] Work Phone: Encounters Encounter Date Encounter Type Care Provider Facility Start: 03-20-2023 End: 03-20-2023 Office outpatient visit 10 minutes Emilio Phan MD Work Phone: [facility] [place] Procedures Date Procedure Procedure Detail Performing Clinician Start: 08-05-2022 End: 08-05-2022 Foot min 3 Views Procedure Note: See Note; NOTES: [facility] [address] [place] [address] Foot min 3 Views MR#: [id number] Acct: [id number] Name: ALTAGRACIA MORALES Rep #: [id number] : 1940 F 82 From: Wilfredo Pemberton MD PCP: Dr. Mera Hollingsworth DO Status: DEP AMB Study: Foot min 3 Views Date of Exam: 08/05/22 Exam# [id number] Ordering Dr: Mera Hollingsworth DO STUDY: X-RAY - LEFT FOOT CLINICAL: Female, 82 years old. Pain. TECHNIQUE: 3 view(s) of the foot. COMPARISON: None. FINDINGS: Osteopenia. Mild arthrosis of the tibiotalar joint. Mild arthrosis of the subtalar joint. Moderate arthrosis of the midfoot. Moderate arthrosis of the TMT joints. Moderate arthrosis of the MTP and IP joints with hammertoe deformities. Normal soft tissues. RAD/Foot min 3 Views IMPRESSION: Osteopenia with osteoarthritic changes as described. No acute abnormality or erosive changes. Electronically Signed: Wilfredo Pemberton, at 11:21 EST , CC: Dr. Mera Hollingsworth DO [employer]: Signed Mera Hollingsworth DO Work Phone: Start: 01-12-2022 End: 01-12-2022 Oncology Visit Report Procedure Note: See Note; NOTES: [facility] [address] [place] [address] OFFICE VISIT Date of Service: 01/12/22 1355 MR#: [id number] Acct: [id number] Name: ALTAGRACIA MORALES Rep #: [id number] : 1940 From: Mir Vargas MD Age/Sex: 81/F Location[place] [facility] [place] Status: Signed HPI Subjective Date of Service 01/12/22 Chief Complaint Breast cancer follow-up History of Present Illness 81-year-old female who presented with a 1 year history of right nipple bloody discharge. Despite a negative mammogram in December 2019 she did undergo Ductal exploration with excisional biopsy right breast on January 15, [address] Higgins which revealed DCIS. 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 The tumor is 1 mm from the closest margin. Regional lymph nodes no lymph nodes submitted or found. Microcalcifications not identified Additional Pathologic Findings: -Nipple adenoma. - Focal atypical ductal hyperplasia. Ancillary Studies ([id number]): ER - >95%, strong intensity MO - >95%, strong intensity Her2 aki ([facility]) negative (0) Clinical history bloody nipple discharge. Pathologic Staging: pTis(DCIS) pNx pMx Treatment summary: Exploration with excision January 2020. Adjuvant radiation therapy: 02/24/2020 - 03/04/2020: Received 3000 cGy in 5 fractions to the right partial breast. Adjuvant hormonal therapy with Arimidex March 2020-September 2020 then she stopped. [facility] Medical History Ductal carcinoma in situ (DCIS) of right breast Nipple discharge Nipple discharge, bloody Positive colorectal cancer screening using Cologuard test Post-menopausal Vitamin D deficiency Surgical History History of right breast biopsy History of right cataract surgery S/P colonoscopy Status post right breast lumpectomy Status post right breast lumpectomy Family History Brother Hypercholesterolemia Colon cancer Sister Diabetes Hypertension Father Diabetes Hypertension Social History Smoking Status: Never smoker second hand exposure: No alcohol intake: never substance use type: does not use albert/mormon: Mormon seatbelt use: always do you feel safe at home: Yes ROS Constitutional Constitutional: Reports systems reviewed and no addt'l complaints, except as documented and other Details: No hot flashes ; Denies fatigue, fever(s), night sweats or weight loss Eyes Eyes: Denies change in vision ENT HEENT: Reports systems reviewed and no addt'l complaints, except as documented; Denies headache(s) or mouth lesions Cardiovascular Cardiovascular: Reports systems reviewed and no addt'l complaints, except as documented; Denies chest pain with activity or edema Respiratory/Chest Respiratory/Chest: Reports systems reviewed and no addt'l complaints, except as documented; Denies cough or dyspnea Gastrointestinal Gastrointestinal: Reports systems reviewed and no addt'l complaints, except as documented; Denies change in bowel habits, hematochezia or melena Genitourinary Genitourinary: Reports systems reviewed and no addt'l complaints, except as documented; Denies dysuria or hematuria Musculoskeletal Musculoskeletal: Reports systems reviewed and no addt'l complaints, except as documented, arthralgias and other Details: knees' ; Denies back pain Integumentary Integumentary: Reports systems reviewed and no addt'l complaints, except as documented; Denies rash Neurologic Neurologic: Reports systems reviewed and no addt'l complaints, except as documented; Denies focal weakness or headache(s) Psychiatric Psychiatric: Reports systems reviewed and no addt'l complaints, except as documented Endocrine Endocrinology: Reports systems reviewed and no addt'l complaints, except as documented; Denies flushing Hematologic/Lymphatic Hematologic/Lymphatic: Reports systems reviewed and no addt'l complaints, except as documented; Denies easy bleeding, easy bruising or lymphadenopathy Allergic/Immunologic Allergic/Immunologic: Reports systems reviewed and no addt'l complaints, except as documented Intake Vital Signs 01/11/21 14:17 01/12/22 13:56 01/12/22 13:58 Height 5 ft 3 in 5 ft 3 in 5 ft 3 in Weight: 77.337 kg BMI 30.2 BP 140/78 H Blood Pressure Location Lt brachial Position Sitting Respiration 16 Pulse 78 Pulse Source Monitor Temp 97.8 F Temperature Source Temporal Artery Pulse Oximetry (%) 97 Oxygen Delivery Method room air Intake Is patient in pain?: No Allergies Penicillins Allergy (Severe, Verified 01/12/22 13:58) Rash Medications calcium carbonate 500 mg calcium (1,250 mg) tablet (Calcium 500) 500 mg PO BID 08/08/19 [History Confirmed 01/12/22] mecobalamin (vitamin B12) 5,000 mcg disintegrating tablet 5,000 mcg PO DAILY 08/08/19 [History Confirmed 01/12/22] multivitamin with minerals (Hair,Skin and Nails tablet) 1 tab PO BID 08/08/19 [History Confirmed 01/12/22] ergocalciferol (vitamin D2) 1,250 mcg (50,000 unit) capsule 50,000 unit PO Q7D 01/29/20 [History Confirmed 01/12/22] vitamins A,C,K-zadl-rmugry 14,320 unit-226 mg-200 unit capsule 1 tab PO DAILY 01/29/20 [History Confirmed 01/12/22] anastrozole 1 mg tablet 1 mg PO DAILY 90 days #90 tabs 03/18/20 [Rx Confirmed 01/11/21] Central Venous Access Central Venous Access: No Exam Physical Exam Const alert and oriented x3 General Appearance: cooperative Nutritional Appearance: obese HEENT normocephalic Head and Scalp: normal to inspection Face and Sinus: normal facial exam Mouth: oral and palatal mucosa normal Eyes Conjunctiva: conjunctiva normal Sclera: sclera normal Lymph Lymphatic: no lymphadenopathy noted Chest Chest: symmetrical chest wall rise Resp normal air movement and clear to auscultation bilaterally Cardio regular rate and regular rhythm Jugular Venous Distention: Negative for JVD GI soft to palpation, non-tender and non-distended no CVA tenderness Back/Spine no thoracic nor lumbar tenderness Extremity no clubbing, cyanosis or edema Skin no rashes or lesions noted Neuro oriented x3, CN's II-XII intact bilaterally and moves all extremities Coordination / Balance: [id number] test normal Speech: speech normal Gait (Neuro): normal gait Psych mental status grossly normal, thought process normal, cooperative and affect normal Coding Level of Care Code Off vis,est,level 4 Exam Problem Focused Diagnoses Ductal carcinoma in situ (DCIS) of right breast D05.11 Osteopenia M85.851; M85.852 Osteopenia location: femoral neck Laterality: bilateral Assessment and Plan Assessment and Plan (1) Ductal carcinoma in situ (DCIS) of right breast: Status: Acute (2) Osteopenia: Status: Chronic Qualifiers: Osteopenia location: femoral neck Laterality: bilateral Qualified Code(s): M85.851 - Other specified disorders of bone density and structure, right thigh; M85.852 - Other specified disorders of bone density and structure, left thigh Plan 81-year-old female with right breast DCIS, ER positive, presenting with bloodstained nipple discharge and negative mammogram status post exploration and excision January 15, 2020. She has a 1 mm margin. She received adjuvant radiation therapy in February 2020 and started adjuvant hormonal therapy with Arimidex March 2020 then stopped September 2020. Although she tolerated hormonal therapy well she stopped by her own initiative because she does not like taking medications . She is on surveillance with no evidence to suggest cancer recurrence. Screening mammogram December 2021 okay. Comorbid conditions: Osteopenia predates AI therapy, Plan: 1-reviewed pros and cons of hormonal therapy and prevention of recurrent breast cancer based on the [employer] Oncology/NSABP B-35 trial (Lancet. 2016;387(74686):849. Epub 2014May 22). Nonetheless she does not wish to resume hormonal therapy. 2-Continue vitamin D and calcium supplementation. 3-screening mammography to schedule December 2022 follow-up a week later. Impression and recommendations discussed. Mir Vargas MD Plc Programmer, [facility] Divisions of Medical Oncology Hematology Department of Internal Medicine [place] [id number] This note was generated using a voice recognition system software. Although it was reviewed by the author prior to finalization, it may still contain incorrect words, spelling, and punctuation that were not noted when reviewing prior to saving. If a clinically significant typo or inaccurately typed phrase is noted, please notify the author.. 01/12/22 1415 <Electronically signed by Mir Vargas MD> Date Mir Vargas MD Cosigner Signature: Date (if applicable) CC: DO Mera Spicer DO Work Phone: Start: 01-05-2022 End: 01-05-2022 SCRN MAMM (CAD)W/ALEJANDRA BILAT Procedure Note: See Note; NOTES: [facility] Imaging Services [address] [place] [address] SCRN MAMM (CAD)W/ALEJANDRA BILAT MR#: [id number] Acct: [id number] Name: ALTAGRACIA MORALES Rep #: [id number] : 1940 F 81 From: Carlos Manuel curiel MD PCP: Dr. Mera Hollingsworth DO Status: REG CLI Study: SCRN MAMM (CAD)W/ALEJANDRA BILAT Date of Exam: 12/11 12/31 Exam# [id number] Ordering Dr: Mir Vargas MD MAMMOGRAPHY - BILATERAL SCREENING REASON FOR EXAM: Female, 81 years old. Routine annual screening examination. PERTINENT HISTORY: Personal history of breast cancer. Prior right lumpectomy with radiation therapy. TECHNIQUE: Digital bilateral breast alejandra (3D mammographic acquisition) in the CC and MLO projections. 2-D mediolateral oblique (MLO) and craniocaudad (CC) views of both breasts were obtained. CAD: Full Field Digital Mammography with Computer Added Detection was performed. COMPARISON: Comparison is made with prior study dated 01/04/2021 and 01/02/2020. FINDINGS: Breast Composition: The breasts are heterogeneously dense, which may obscure small masses. There are no dominant masses or suspicious calcifications. Stable asymmetry of breast tissue, breast tissue seen in the right breast as compared to the left side. No other significant abnormalities are identified. There has been no significant change since the prior study. BI/SCRN MAMM (CAD)W/ALEJANDRA BILAT IMPRESSION: Stable bilateral screening mammogram. Yearly follow-up mammogram recommended. (A) ASSESSMENT CATEGORY: BIRADS Category 2: Benign. A letter regarding these results will be sent to the patient by the facility within 30 days. Approximately 10% of breast cancers are not detected by mammography. A normal mammogram should not delay biopsy of a clinically suspicious abnormality. [id number] Electronically Signed: Carlos Manuel Franco MD at 14:03 EDT Reading Location ID and State: [id number] / [place] , Service support , CC: Dr. Mera Hollingsworth DO; Dr. Mir Vargas MD [employer]: Signed Mera Hollingsworth DO Work Phone: Start: 01-11-2021 End: 01-11-2021 Oncology Visit Report Comments: See Note; NOTES: [facility] [address] [place] [id number] OFFICE VISIT Date of Service: 01/11/21 1417 MR#: [id number] Acct: [id number] Name: ALTAGRACIA MORALES Rep #: [id number] : 1940 From: Mir Vargas MD Age/Sex: 80/F Location: [facility] [place] Status: Signed HPI Subjective Date of Service 01/11/21 Chief Complaint Breast cancer follow-up History of Present Illness 80-year-old female who presented with a 1 year history of right nipple bloody discharge. Despite a negative mammogram in December 2019 she did undergo Ductal exploration with excisional biopsy right breast on January 15, [address] Higgins which revealed DCIS. 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 The tumor is 1 mm from the closest margin. Regional lymph nodes no lymph nodes submitted or found. Microcalcifications not identified Additional Pathologic Findings: -Nipple adenoma. - Focal atypical ductal hyperplasia. Ancillary Studies ([id number]): ER - >95%, strong intensity MO - >95%, strong intensity Her2 aki ([facility]) negative (0) Clinical history bloody nipple discharge. Pathologic Staging: pTis(DCIS) pNx pMx Treatment summary: Exploration with excision January 2020. Adjuvant radiation therapy: 02/24/2020 - 03/04/2020: Received 3000 cGy in 5 fractions to the right partial breast. Adjuvant hormonal therapy with Arimidex March 2020-September 2020 then she stopped. [facility] Medical History Ductal carcinoma in situ (DCIS) of right breast Nipple discharge Nipple discharge, bloody Positive colorectal cancer screening using Cologuard test Post-menopausal Vitamin D deficiency Surgical History History of right breast biopsy History of right cataract surgery S/P colonoscopy Status post right breast lumpectomy Status post right breast lumpectomy Family History Brother Hypercholesterolemia Colon cancer Sister Diabetes Hypertension Father Diabetes Hypertension Social History Smoking Status: Never smoker second hand exposure: No alcohol intake: never substance use type: does not use albert/mormon: Mormon seatbelt use: always do you feel safe at home: Yes ROS Constitutional Constitutional: Reports systems reviewed and no addt'l complaints, except as documented and other Details: No hot flashes ; Denies fatigue, fever(s), night sweats or weight loss Eyes Eyes: Denies change in vision ENT HEENT: Reports systems reviewed and no addt'l complaints, except as documented; Denies headache(s) or mouth lesions Cardiovascular Cardiovascular: Reports systems reviewed and no addt'l complaints, except as documented; Denies chest pain with activity or edema Respiratory/Chest Respiratory/Chest: Reports systems reviewed and no addt'l complaints, except as documented; Denies cough or dyspnea Gastrointestinal Gastrointestinal: Reports systems reviewed and no addt'l complaints, except as documented; Denies change in bowel habits, hematochezia or melena Genitourinary Genitourinary: Reports systems reviewed and no addt'l complaints, except as documented; Denies dysuria or hematuria Musculoskeletal Musculoskeletal: Reports systems reviewed and no addt'l complaints, except as documented; Denies back pain or joint pain Integumentary Integumentary: Reports systems reviewed and no addt'l complaints, except as documented; Denies rash Neurologic Neurologic: Reports systems reviewed and no addt'l complaints, except as documented; Denies focal weakness or headache(s) Psychiatric Psychiatric: Reports systems reviewed and no addt'l complaints, except as documented Endocrine Endocrinology: Reports systems reviewed and no addt'l complaints, except as documented; Denies flushing Hematologic/Lymphatic Hematologic/Lymphatic: Reports systems reviewed and no addt'l complaints, except as documented; Denies easy bleeding, easy bruising or lymphadenopathy Allergic/Immunologic Allergic/Immunologic: Reports systems reviewed and no addt'l complaints, except as documented Intake Vital Signs 01/11/21 14:17 Height 5 ft 3 in Weight: 79.038 kg BMI 30.9 BP 160/82 H Blood Pressure Location Rt femoral Position Sitting Respiration 16 Pulse 82 Pulse Source Monitor Temp 98.0 F Temperature Source Temporal Artery Pulse Oximetry (%) 93 Oxygen Delivery Method room air Intake Playground Monitor Required: No Accompanied by: Self Is patient in pain?: No Allergies Penicillins Allergy (Severe, Verified 01/11/21 14:24) Rash Medications calcium carbonate 500 mg calcium (1,250 mg) tablet 500 mg PO BID 08/08/19 [History Confirmed 01/11/21] mecobalamin (vitamin B12) 5,000 mcg disintegrating tablet 5,000 mcg PO DAILY 08/08/19 [History Confirmed 01/11/21] multivitamin with minerals 1 tab PO BID tab 08/08/19 [History Confirmed 01/11/21] ergocalciferol (vitamin D2) 50,000 unit PO Q7D 01/29/20 [History Confirmed 01/11/21] vitamins A,C,M-kigl-fthpad 1 tab PO DAILY 01/29/20 [History Confirmed 01/11/21] anastrozole 1 mg PO DAILY 90 Days #90 tab 03/18/20 [Rx Confirmed 01/11/21] Central Venous Access Central Venous Access: [facility] [id number] [place] [address] SCRN MAMM (CAD)W/ALEJANDRA BILAT MR#: [id number]:[id number] e: ALTAGRACIA MORALES ARe #:[id number]: [id number] From: Carlos Manuel Franco MDPCP:Dr. Mera Hollingsworth, DO Status:REG CLIStudy:SCRN MAMM (CAD)W/ALEJANDRA BILAT Date of Exam:01/04/21Exam#[id number] Ordering Dr: Mir Vargas MD MAMMOGRAPHY - BILATERAL SCREENING REASON FOR EXAM: Female, 80 years old. Routine annual screening examination. PERTINENT HISTORY: Non-contributory. TECHNIQUE: Digital bilateral breast alejandra (3D mammographic acquisition) in the CC and MLO projections. 2-D mediolateral oblique (MLO) and craniocaudad (CC) views of both breasts were obtained. CAD: Full Field Digital Mammography with Computer Added Detection was performed. COMPARISON: Comparison is made with prior study dated 01/02/2020 and 12/31/2018. FINDINGS: Breast Composition: There are scattered areas of fibroglandular density. There are no dominant masses or suspicious calcifications. There is asymmetry of breast tissue where more breast tissue is seen in the right breast as compared to the left side. Stable benign appearing bilateral axillary lymph nodes. No other significant abnormalities are identified. There has been no significant change since the prior study. BI/SCRN MAMM (CAD)W/ALEJANDRA BILAT IMPRESSION: Stable bilateral screening mammogram. Yearly follow-up mammogram recommended. (A) ASSESSMENT CATEGORY: BIRADS Category 2: Benign. A letter regarding these results will be sent to the patient by the facility within 30 days. Approximately 10% of breast cancers are not detected by mammography. A normal mammogram should not delay biopsy of a clinically suspicious abnormality. [id number] Electronically Signed: Carlos Manuel Franco MD at 14:47 EDT , Service support , CC: Dr. Mera Hollingsworth DO; Dr. Mir Vargas MD [employer]:Signed Exam Physical Exam Const alert and oriented x3 General Appearance: cooperative Nutritional Appearance: obese HEENT normocephalic Head and Scalp: normal to inspection Face and Sinus: normal facial exam Mouth: oral and palatal mucosa normal Eyes Conjunctiva: conjunctiva normal Sclera: sclera normal Lymph Lymphatic: no lymphadenopathy noted Chest Chest: symmetrical chest wall rise Resp normal air movement and clear to auscultation bilaterally Cardio regular rate and regular rhythm Jugular Venous Distention: Negative for JVD GI soft to palpation, non-tender and non-distended no CVA tenderness Back/Spine no thoracic nor lumbar tenderness Extremity no clubbing, cyanosis or edema Skin no rashes or lesions noted Neuro oriented x3, CN's II-XII intact bilaterally and moves all extremities Coordination / Balance: mcitng-ql-ikzp test normal Speech: speech normal Gait (Neuro): normal gait Psych mental status grossly normal, thought process normal, cooperative and affect normal Coding Level of Care Code Off vis,est,level 4 Diagnoses Ductal carcinoma in situ (DCIS) of right breast D05.11 Osteopenia M85.851; M85.852 Osteopenia location: femoral neck Laterality: bilateral Assessment and Plan Assessment and Plan (1) Ductal carcinoma in situ (DCIS) of right breast: Status: Acute (2) Osteopenia: Status: Chronic Qualifiers: Osteopenia location: femoral neck Laterality: bilateral Qualified Code(s): M85.851 - Other specified disorders of bone density and structure, right thigh; M85.852 - Other specified disorders of bone density and structure, left thigh Plan - Dr. Mir Vargas MD: 80-year-old female with right breast DCIS, ER positive, presenting with bloodstained nipple discharge and negative mammogram status post exploration and excision January 15, 2020. She has a 1 mm margin. She received adjuvant radiation therapy in February 2020 and started adjuvant hormonal therapy with Arimidex March 2020 then stopped September 2020. Although she tolerated hormonal therapy well she stopped by her own initiative because she does not like taking medications . She is on surveillance with no evidence to suggest cancer recurrence. Comorbid conditions: Osteopenia predates AI therapy, Plan: 1-reviewed pros and cons of hormonal therapy and prevention of recurrent breast cancer based on the [employer] On[employer]/NSABP B-35 trial (Lancet. 2016;387(02297):123. Epub 2014May 22). Nonetheless she does not wish to resume hormonal therapy. 2-Continue vitamin D and calcium supplementation. Bone density will be due in December 2021 3-screening mammography to schedule December 2021 follow-up a week later. Impression and recommendations discussed. Mir Vargas MD Plc Programmer, [facility] Divisions of Medical Oncology Hematology Department of Internal Medicine [place] [id number] This note was generated using a voice recognition system software. Although it was reviewed by the author prior to finalization, it may still contain incorrect words, spelling, and punctuation that were not noted when reviewing prior to saving. If a clinically significant typo or inaccurately typed phrase is noted, please notify the author.. 01/11/21 [id number] <Electronically signed by Mir Vargas MD> Date Mir Vargas MD Cosigner Signature: Date (if applicable) CC: Dr. Mera Hollingsworth, DO Mera Hollingsworth DO Work Phone: Start: 01-04-2021 End: 01-04-2021 SCRN MAMM (CAD)W/ALEJANDRA BILAT Comments: See Note; NOTES: [facility] Imaging Services [address] [place] [address] SCRN MAMM (CAD)W/ALEJANDRA BILAT MR#: [id number] Acct: [id number] Name: ALTAGRACIA MORALES Rep #: [id number] : 1940 F 80 From: Carlos Manuel curiel MD PCP: Dr. Mera Hollingsworth, DO Status: [facility] Study: SCRN MAMM (CAD)W/ALEJANDRA BILAT Date of Exam: 12/11 11/30 Exam# [id number] Ordering Dr: Mir Vargas MD MAMMOGRAPHY - BILATERAL SCREENING REASON FOR EXAM: Female, 80 years old. Routine annual screening examination. PERTINENT HISTORY: Non-contributory. TECHNIQUE: Digital bilateral breast alejandra (3D mammographic acquisition) in the CC and MLO projections. 2-D mediolateral oblique (MLO) and craniocaudad (CC) views of both breasts were obtained. CAD: Full Field Digital Mammography with Computer Added Detection was performed. COMPARISON: Comparison is made with prior study dated 01/02/2020 and 12/31/2018. FINDINGS: Breast Composition: There are scattered areas of fibroglandular density. There are no dominant masses or suspicious calcifications. There is asymmetry of breast tissue where more breast tissue is seen in the right breast as compared to the left side. Stable benign appearing bilateral axillary lymph nodes. No other significant abnormalities are identified. There has been no significant change since the prior study. BI/SCRN MAMM (CAD)W/ALEJANDRA BILAT IMPRESSION: Stable bilateral screening mammogram. Yearly follow-up mammogram recommended. (A) ASSESSMENT CATEGORY: BIRADS Category 2: Benign. A letter regarding these results will be sent to the patient by the facility within 30 days. Approximately 10% of breast cancers are not detected by mammography. A normal mammogram should not delay biopsy of a clinically suspicious abnormality. [id number] Electronically Signed: Carlos Manuel Franco MD at 14:47 EDT , Service support , CC: Dr. Mera Hollingsworth DO; Dr. Mir Vargas MD [employer]: Signed Mera Hollingsworth DO Work Phone: Start: 10-28-2020 End: 10-28-2020 Oncology Visit Report Comments: See Note; NOTES: [facility] [address] [place] [address]. [place] [address] OFFICE VISIT Date of Service: 10/28/20 1314 MR#: [id number] Acct: [id number] Name: ALTAGRACIA MORALES Rep #: [id number] : 1940 From: Mir Vargas MD Age/Sex: 80/F Location: [facility] [place] Status: Signed HPI Subjective Date of Service Date of Service:: 10/28/20 Chief Complaint Chief Complaint: Breast cancer follow-up History of Present Illness History of Present Illness: 80-year-old female who presented with a 1 year history of right nipple bloody discharge. Despite a negative mammogram in December 2019 she did undergo Ductal exploration with excisional biopsy right breast on January 15, [address] Higgins which revealed DCIS. 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 The tumor is 1 mm from the closest margin. Regional lymph nodes no lymph nodes submitted or found. Microcalcifications not identified Additional Pathologic Findings: -Nipple adenoma. - Focal atypical ductal hyperplasia. Ancillary Studies ([id number]): ER - >95%, strong intensity MO - >95%, strong intensity Her2 aki (IHC) negative (0) Clinical history bloody nipple discharge. Pathologic Staging: pTis(DCIS) pNx pMx Treatment summary: Exploration with excision January 2020. Adjuvant radiation therapy: 02/24/2020 - 03/04/2020: Received 3000 cGy in 5 fractions to the right partial breast. Adjuvant hormonal therapy with Arimidex March 2020-September 2020 then she stopped. [facility] Medical History Ductal carcinoma in situ (DCIS) of right breast Nipple discharge Nipple discharge, bloody Positive colorectal cancer screening using Cologuard test Post-menopausal Vitamin D deficiency Surgical History History of right breast biopsy History of right cataract surgery S/P colonoscopy Status post right breast lumpectomy Status post right breast lumpectomy Family History Brother Hypercholesterolemia Colon cancer Sister Diabetes Hypertension Father Diabetes Hypertension Social History (Updated 10/28/20 @ 13:23 by Radha Powell) Smoking Status: Never smoker second hand exposure: No alcohol intake: never substance use type: does not use seatbelt use: always do you feel safe at home: Yes ROS Constitutional Constitutional: Reports systems reviewed and no addt'l complaints, except as documented and other Details: No hot flashes ; Denies fatigue, fever(s), night sweats or weight loss Eyes Eyes: Denies change in vision ENT HEENT: Reports systems reviewed and no addt'l complaints, except as documented; Denies headache(s) or mouth lesions Cardiovascular Cardiovascular: Reports systems reviewed and no addt'l complaints, except as documented; Denies chest pain with activity or edema Respiratory/Chest Respiratory/Chest: Reports systems reviewed and no addt'l complaints, except as documented; Denies cough or dyspnea Gastrointestinal Gastrointestinal: Reports systems reviewed and no addt'l complaints, except as documented; Denies change in bowel habits, hematochezia or melena Genitourinary Genitourinary: Reports systems reviewed and no addt'l complaints, except as documented; Denies dysuria or hematuria Musculoskeletal Musculoskeletal: Reports systems reviewed and no addt'l complaints, except as documented; Denies back pain or joint pain Integumentary Integumentary: Reports systems reviewed and no addt'l complaints, except as documented; Denies rash Neurologic Neurologic: Reports systems reviewed and no addt'l complaints, except as documented; Denies focal weakness or headache(s) Psychiatric Psychiatric: Reports systems reviewed and no addt'l complaints, except as documented Endocrine Endocrinology: Reports systems reviewed and no addt'l complaints, except as documented; Denies flushing Hematologic/Lymphatic Hematologic/Lymphatic: Reports systems reviewed and no addt'l complaints, except as documented; Denies easy bleeding, easy bruising or lymphadenopathy Allergic/Immunologic Allergic/Immunologic: Reports systems reviewed and no addt'l complaints, except as documented Intake Vital Signs 10/28/20 13:14 Height 5 ft 3 in Weight: 79.605 kg BMI 31.1 BP 160/76 H Blood Pressure Location Lt brachial Position Sitting Respiration 16 Pulse 77 Pulse Source Monitor Temp 98.2 F Temperature Source Temporal Artery Pulse Oximetry (%) 97 Oxygen Delivery Method room air Intake Playground Monitor Required: No Accompanied by: Self Is patient in pain?: No Allergies Penicillins Allergy (Severe, Verified 10/28/20 13:20) Rash Medications calcium carbonate 500 mg calcium (1,250 mg) tablet 500 mg PO BID 08/08/19 [History Confirmed 10/28/20] mecobalamin (vitamin B12) 5,000 mcg disintegrating tablet 5,000 mcg PO DAILY 08/08/19 [History Confirmed 10/28/20] multivitamin with minerals 1 tab PO BID tab 08/08/19 [History Confirmed 10/28/20] ergocalciferol (vitamin D2) 50,000 unit PO Q7D 01/29/20 [History Confirmed 10/28/20] vitamins A,C,B-raht-jawear 1 tab PO DAILY 01/29/20 [History Confirmed 10/28/20] anastrozole 1 mg PO DAILY 90 Days #90 tab 03/18/20 [Rx Confirmed 07/09/20] Central Venous Access Central Venous Access: No Exam Physical Exam Const alert and oriented x3 General Appearance: cooperative Nutritional Appearance: obese HEENT normocephalic Head and Scalp: normal to inspection Face and Sinus: normal facial exam Mouth: oral and palatal mucosa normal Eyes Conjunctiva: conjunctiva normal Sclera: sclera normal Lymph Lymphatic: no lymphadenopathy noted Chest Chest: symmetrical chest wall rise Resp normal air movement and clear to auscultation bilaterally Cardio regular rate and regular rhythm Jugular Venous Distention: Negative for JVD GI soft to palpation, non-tender and non-distended no CVA tenderness Back/Spine no thoracic nor lumbar tenderness Extremity no clubbing, cyanosis or edema Skin no rashes or lesions noted Neuro oriented x3, CN's II-XII intact bilaterally and moves all extremities Coordination / Balance: xikfmm-ed-vioz test normal Speech: speech normal Gait (Neuro): normal gait Psych mental status grossly normal, thought process normal, cooperative and affect normal Coding Level of Care Code Off vis,est,level 4 Diagnoses Ductal carcinoma in situ (DCIS) of right breast D05.11 Osteopenia M85.851; M85.852 Osteopenia location: femoral neck Laterality: bilateral Assessment and Plan Assessment and Plan (1) Ductal carcinoma in situ (DCIS) of right breast: Status: Acute (2) Osteopenia: Status: Chronic Qualifiers: Osteopenia location: femoral neck Laterality: bilateral Qualified Code(s): M85.851 - Other specified disorders of bone density and structure, right thigh; M85.852 - Other specified disorders of bone density and structure, left thigh Orders: Orders: Comprehensive Metabolic Profil 01/11/21 D05.11 CBC W/Diff, Automated 01/11/21 D05.11 Plan - Dr. Mir Vargas MD: 80-year-old female with right breast DCIS, ER positive, presenting with bloodstained nipple discharge and negative mammogram status post exploration and excision January 15, 2020. She has a 1 mm margin. She received adjuvant radiation therapy in February 2020 and started adjuvant hormonal therapy with Arimidex March 2020 then stopped September 2020. Although she tolerated hormonal therapy well she stopped by her own initiative because she does not like taking medications Comorbid conditions: Osteopenia predates AI therapy, Plan: 1-reviewed pros and cons of hormonal therapy and prevention of recurrent breast cancer based on the [employer] On[employer]/NSABP B-35 trial (Lancet. 2016;387(49798):819. Epub 2014May 22). Since she has some Arimidex pills left at home, if she were to change her mind, she may resume 2-being of AI therapy Prolia is not a covered indication and therefore advised to continue vitamin D and calcium supplementation. Bone density will be due in 2019. 3-screening mammography to 6 schedule December 2020 follow-up a week later. Impression and recommendations discussed. Mir Vargas MD Plc Programmer, [facility] Divisions of Medical Oncology Hematology Department of Internal Medicine [address] [address] This note was generated using a voice recognition system software. Although it was reviewed by the author prior to finalization, it may still contain incorrect words, spelling, and punctuation that were not noted when reviewing prior to saving. If a clinically significant typo or inaccurately typed phrase is noted, please notify the author.. 10/28/20 1414 <Electronically signed by Mir Vargas MD> Date Mir Vargas MD Cosigner Signature: Date (if applicable) CC: Dr. Mera Hollingsworth, DO; MD Mera Osorio DO Work Phone: Start: 09-21-2020 End: 09-22-2020 Wrist min 3 Views Comments: See Note; NOTES: [facility] [address] [place] [id number] Wrist min 3 Views MR#: [id number] Acct: [id number] Name: ALTAGRACIA MORAELS Rep #: [id number] : 1940 F 80 From: Juancarlos Waters PCP: Dr. Mera Hollingsworth DO Status: DEP AMB Study: Wrist min 3 Views Date of Exam: 09/21/20 Exam# [id number] Ordering Dr: Altagracia Morrell [employer] HAND[employer]ER SUPERVISOR [employer] SUPERVISOR-C We are attempting to reach an attending provider to discuss findings. An addendum with communication details will be sent when the communication is complete. STUDY: X-RAY - RIGHT WRIST REASON FOR EXAM: Right wrist pain, right wrist injury from a fall yesterday. TECHNIQUE: 3 view(s) of the wrist were obtained. COMPARISON: None. FINDINGS: Normal visualized distal radius and ulna. Normal radiocarpal articulation. Normal distal radioulnar articulation. There is a possible nondisplaced fracture of the mid scaphoid. Normal carpal articulations. There are marginal osteophytes and severe joint space loss of the carpometacarpal articulation of the thumb. Normal second through fifth carpometacarpal articulations. Normal visualized metacarpal bones. The soft tissue structures are unremarkable. RAD/Wrist min 3 Views IMPRESSION: Possible nondisplaced fracture of the scaphoid. Arthrosis of the first carpometacarpal articulation. Electronically Signed: Juancarlos Mckeon MD at 13:15 EDT Tel , Service support , CC: WILLI Morrell; Dr. Mera Hollingsworth DO [employer]: Signed Altagracia Morrell Work Phone: Start: 07-09-2020 End: 07-09-2020 Oncology Follow-Up Visit Comments: See Note; NOTES: [facility] Medical Records Department [address] [place] [address] Oncology Follow-Up Visit 07/09/20 0957 MR#: [id number] Acct: [id number] Name: ALTAGRACIA MORALES Rep #: [id number] : 1940 80 From: Akash Caraballo DO PCP: Dr. 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 From 02/24/2020 - 03/04/2020 she received 3000 cGy in 5 fractions to the right partial breast. She then initiated Anastrozole. History of Present Illness: 01/02/2020: Bilateral screening mammography was performed. This demonstrated no evidence of abnormality in either breast. BI-RADS Category 1. 01/06/2020: Patient was evaluated by surgery due to having a history of intermittent right nipple discharge which was apparently bloody. Recent imaging was unremarkable. Recommendation was to proceed with wire ductal exploration of the right breast with excisional biopsy. 01/15/2020: Patient underwent ductal exploration with excisional biopsy of the right breast. No focal mass was encountered but retroauricularly there was evidence for discolored ductules encountered, the dissection was completed on the immediate undersurface of the nipple. 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 Distance to the closest margin is 1 mm. Additionally, found was a nipple adenoma and focal atypical ductal hyperplasia. 01/29/2020: Patient had consultation with medical oncology and recommendation was for adjuvant endocrine therapy with aromatase inhibitor and for consultation with radiation oncology. From 02/24/2020 - 03/04/2020: Received 3000 cGy in 5 fractions to the right partial breast. Radiation Treatment History: 1) From 02/24/2020 - 03/04/2020: Received 3000 cGy in 5 fractions to the right partial breast. Interval History: Patient presents for routine follow-up approximately 4 months after completing adjuvant partial breast radiation therapy to the right breast. Over the last months she reports doing very well. She denies breast pain, abnormal nipple discharge, skin redness or tanning, skin dryness, alterations in breast size/shape. She continues to use lotion on the breast once a day. She is taking anastrozole and reports occasional hot flashes but otherwise tolerating very well. She denies having chest wall muscular tightness or discomfort and has full arm range of motion without difficulty. She denies having cough, shortness of breath, hemoptysis. She denies odynophagia and dysphagia. She denies headaches, vision changes, focal weakness/numbness, ataxia, nausea/vomiting, fever/chills, bone pain, unexpected weight loss, or decreased appetite. She stays active in her daily life and denies having other problems or concerns at this time.d. Review of Systems: A 12-point review of systems was completed and was negative except for what is noted in the HPI/Interval History and by the nurse. Height/Weight/BMI: Height: 5 ft 3 in Weight: 177.4 lbs Vital Signs Temperature 98 F 07/09/20 09:36 Temperature Source Temporal 07/09/20 09:36 Pulse Rate 76 07/09/20 09:36 Respiratory Rate 14 07/09/20 09:36 Respiratory Pattern Normal 04/29/20 13:47 Blood Pressure 146/82 H 07/09/20 09:36 Blood Pressure Mean 103 07/09/20 09:36 Blood Pressure Source Monitor 07/09/20 09:36 Blood Pressure Position Sitting 07/09/20 09:36 Blood Pressure Location Left Arm 07/09/20 09:36 Pulse Ox 94 07/09/20 09:36 Oxygen Delivery Method Room Air 07/09/20 09:36 Physical Exam: ECO KARNOFSKY SCORE: 90% CONSTITUTIONAL: Well-developed, well-nourished, and in no apparent distress. NECK: Supple,with no thyromegaly, and non-tender. Trachea midline. No cervical or supraclavicular adenopathy noted. CARDIAC: Regular rate and rhythm. Normal S1, S2. No murmurs, rubs, or gallops. PULMONARY/CHEST: Lungs are clear to auscultation and percussion bilaterally. No wheezes, rhonchi, or crackles noted. No increased work of breathing. ABDOMINAL: Abdomen soft, non-tender, non-distended. No hepatomegaly. Normoactive bowel sounds in all four quadrants. No guarding, rebound. BACK: Straight and aligned. No CVA tenderness. Axial skeleton non-tender to percussion. BREAST: Bilateral breasts were examined the seated and supine position. Within the right breast there is a curvilinear periareolar well-healed lumpectomy incision. There is no evidence for skin erythema or tanning. No palpable lesions are noted in either breast. There are no palpable lymph nodes in either axilla. EXTREMITIES: Full range of motion in all four extremities, with normal strength equally and symmetrically. No evidence of edema. No clubbing. NEUROLOGICAL EXAM: Alert and oriented x 3. Cranial nerves II through XII are grossly intact. No focal neurological deficit. Speech is fluent. Gait and posture are steady. PSYCHIATRIC: Appropriate mood and affect for the clinical situation. 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 From 02/24/2020 - 03/04/2020 she received 3000 cGy in 5 fractions to the right partial breast. She then initiated Anastrozole. Patient returns for a 4 month follow-up after completing accelerated partial breast irradiation to the right breast. There is no evidence of disease on exam. She does not have any notable side effects apparent for radiation therapy. I did review potential treatment associated side effects as well as their timing and management. I reviewed skin care instructions including lotion use and sun avoidance in the treated area. She is taking anastrozole without difficulty. For follow-up I recommended breast exam every 4 to 6 months during the first year and resumption of her annual mammography in December 2020. I will have her return for routine follow-up in 6 months following the mammogram and she was instructed to call with any further questions or concerns in the interim. Akash Caraballo DO, MS Plc Programmer, Department of Radiation Oncology [facility] 07/09/20 1000 <Electronically signed by Akash Caraballo DO> Date Akash Caraballo DO CC: Dr. Mir Vargas MD; Dr. De Higgins MD Signed Mera Hollingsworth Start: 04-29-2020 End: 04-29-2020 Oncology Visit Report Comments: See Note; NOTES: [facility] [place] [address] OFFICE VISIT Date of Service: 04/29/20 1247 MR#: [id number] Acct: [id number] Name: ALTAGRACIA MORALES Rep #: [id number] : 1940 From: Mir Vargas MD Age/Sex: 80/F Location: ONC Status: Signed - Problem List (1) Ductal carcinoma in situ (DCIS) of right breast Status: Acute (2) Osteopenia Status: Chronic Qualifiers: Osteopenia location: femoral neck Laterality: bilateral Qualified Code(s): M85.851 - Other specified disorders of bone density and structure, right thigh; M85.852 - Other specified disorders of bone density and structure, left thigh - Date of Service Date of Service:: 04/29/20 - Chief Complaint Breast cancer on treatment - History of Present Illness 80-year-old female who presented with a 1 year history of right nipple bloody discharge. Despite a negative mammogram in December 2019 she did undergo Ductal exploration with excisional biopsy right breast on January 15, [address] Higgins which revealed DCIS. 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 The tumor is 1 mm from the closest margin. Regional lymph nodes no lymph nodes submitted or found. Microcalcifications not identified Additional Pathologic Findings: -Nipple adenoma. - Focal atypical ductal hyperplasia. Ancillary Studies ([id number]): ER - >95%, strong intensity MO - >95%, strong intensity Her2 aki (IHC) negative (0) Clinical history bloody nipple discharge. Pathologic Staging: pTis(DCIS) pNx pMx Treatment summary: Exploration with excision January 2020. Adjuvant radiation therapy: 02/24/2020 - 03/04/2020: Received 3000 cGy in 5 fractions to the right partial breast. Adjuvant hormonal therapy with Arimidex March 2020. - Past Medical/Social History Past Medical History Cancer: Breast cancer Social History Social History: No changes Smoking Status Never smoker Review of Systems Constitutional:: Reports: - - Flashes are tolerable. Denies: Fever, Sweats, Weight loss, Appetite change, Chills Cardiovascular:: Denies: Chest pain, Palpitations, Dyspnea on exertion, Orthopnea, PND, Shortness of breath Respiratory: Denies: Cough, Hemoptysis, Shortness of Breath, Wheezing Gastrointestinal:: Denies: Abdominal pain, Nausea, Vomiting, Diarrhea, Constipation, Hematochezia Genitourinary: Denies: Dysuria, Hematuria, 15, Flank pain Musculoskeletal:: Denies: Back pain, Myalgia, Arthralgia Skin: Denies: Rash, Skin Changes, Wounds Neurological:: Denies: Headache, Dizziness, Visual changes, Tinnitus, Hearing loss Psychiatric: Denies: Anxiety, Depression, Homicidal Ideations, Suicidal Ideations Vital Signs Selected Entries 04/29/20 12:54 Temperature 98.2 F Pulse Rate 73 Respiratory Rate 14 Blood Pressure 141/82 H Blood Pressure Mean 101 Pulse Ox 97 Oxygen Delivery Method Room Air - Physical Exam General: Alert, Oriented x3, No apparent distress, - - Overweight, ECOG 1 HEENT: Atraumatic, PERRLA, EOMI, Normocephalic Oropharynx:: Dry mucosa Neck:: Supple, Trachea midline. Negative for: JVD, bilateral Cardiac:: Regular rate, Regular rhythm, Normal S1, Normal S2. Negative for: Murmur Lungs: Clear to auscultation, Excusion symmetrical. Negative for: Rhonchi, Wheezes Abdomen:: Soft, Non-tender, Non-distended. Negative for: Hepatosplenomegaly Extremities:: Negative for: Cyanosis, Edema Neurological: Neuro grossly intact Skin:: Negative for: Lesions, Rash, Petechiae, Ecchymosis Psychiatric:: Appropriate affect, Euthymic Lymphatics:: Negative for: Cervical lymphadenopathy, Supraclavicular lymphadenopathy, Axillary lymphadenopathy Laboratory Data: Laboratory Tests 04/29/20 Range/Units 12:35 WBC 5.5 (4.4-11.0) K/mm3 RBC 4.28 (4.2-5.4) M/mm3 Hgb 13.5 (12.0-15.0) g/dL Hct 40.7 (37-47) % MCV 95.1 (81-99) fL MCH 31.5 (27.0-32.0) pg MCHC 33.2 (32-36) g/dL RDW Std Deviation 43.6 (35.1-43.9) fl RDW Coeff of Scar 12.6 (11.6-14.6) % Plt Count 266 (150-450) K/mm3 MPV 8.5 (6.2-12.0) fl Immature Gran % (Auto) 0.200 (0.0-0.9) % Neut % (Auto) 55.1 (47-70) % Lymph % (Auto) 34.4 (19-41) % Camp % (Auto) 7.8 (0-10) % Eos % (Auto) 2.0 (0-5) % Baso % (Auto) 0.5 (0-1) % Absolute Neuts (auto) 3.0 (2.0-7.7) X10 3/uL Absolute Lymphs (auto) 1.89 (0.83-4.51) X10 3/uL Nucleated RBC % 0 (0-5) % Assessment and Plan 80-year-old female with right breast DCIS, ER positive, presenting with bloodstained nipple discharge and negative mammogram status post exploration and excision January 15, 2020. She has a 1 mm margin. She received adjuvant radiation therapy in February 2020 and started adjuvant hormonal therapy with Arimidex March 2020. Comorbid conditions: Osteopenia predates AI therapy, Recommendation: I reviewed the most recent NCCN guidelines and up-to-date review of DCIS and advice: 1-continue adjuvant endocrine therapy for 5 years using an aromatase inhibitor based on the [employer] Oncology/NSABP B-35 trial (Lancet. 2016;387(46518):849. Epub 2014May 22). 2-with pre-existing postmenopausal osteopenia despite vitamin D and calcium supplementation advise bone supportive therapy with Prolia 60 MCG subcu every 6 months starting April 29, 2020. 3-follow-up in 6 months Impression and recommendations discussed. Mir Vargas MD Plc Programmer, [facility] Divisions of Medical Oncology Hematology Department of Internal Medicine [place] [phone] This note was generated using a voice recognition system software. Although it was reviewed by the author prior to finalization, it may still contain incorrect words, spelling, and punctuation that were not noted when reviewing prior to saving. If a clinically significant typo or inaccurately typed phrase is noted, please notify the author.. Medications: Prescriptions This Visit Medication Instructions Recorded Ergocalciferol [Vitamin D] 50,000 unit PO Q7D 01/29/20 Vit A/Vit C/Vit E/Zinc/Copper 1 tab PO DAILY 01/29/20 [Preservision Areds Softgel] Anastrozole [Arimidex] 1 mg PO DAILY 90 Days #90 tab 03/18/20 Medications Added to Medication List This Visit Category Date Time Status Denosumab [Prolia] ONC NC 04/29/20 13:30 Once 60 mg SQ X1 ONE Primary Care Provider: Dr. Mera Hollingsworth DO Referring Provider: Dr. De Higgins MD 04/29/20 1312 <Electronically signed by Mir Vargas MD> Date Mir Vargas MD Cosigner Signature: Date (if applicable) CC: DO Mera Spicer Start: 04-02-2020 End: 04-02-2020 Oncology Follow-Up Visit Comments: See Note; NOTES: [facility] Medical Records Department [address] [place] [address] Oncology Follow-Up Visit 04/02/20 1110 MR#: [id number] Acct: [id number] Name: ATLAGRACIA MORALES Rep #: [id number] : 1940 80 From: Akash Caraballo DO PCP: Dr. 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 From 02/24/2020 - 03/04/2020 she received 3000 cGy in 5 fractions to the right partial breast. She then initiated Anastrozole. History of Present Illness: 01/02/2020: Bilateral screening mammography was performed. This demonstrated no evidence of abnormality in either breast. BI-RADS Category 1. 01/06/2020: Patient was evaluated by surgery due to having a history of intermittent right nipple discharge which was apparently bloody. Recent imaging was unremarkable. Recommendation was to proceed with wire ductal exploration of the right breast with excisional biopsy. 01/15/2020: Patient underwent ductal exploration with excisional biopsy of the right breast. No focal mass was encountered but retroauricularly there was evidence for discolored ductules encountered, the dissection was completed on the immediate undersurface of the nipple. 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 Distance to the closest margin is 1 mm. Additionally, found was a nipple adenoma and focal atypical ductal hyperplasia. 01/29/2020: Patient had consultation with medical oncology and recommendation was for adjuvant endocrine therapy with aromatase inhibitor and for consultation with radiation oncology. From 02/24/2020 - 03/04/2020: Received 3000 cGy in 5 fractions to the right partial breast. Radiation Treatment History: 1) From 02/24/2020 - 03/04/2020: Received 3000 cGy in 5 fractions to the right partial breast. Interval History: Patient presents for routine follow-up approximately 1 month after completing adjuvant partial breast radiation therapy to the right breast. Over the last months she reports doing very well. She denies breast pain, abnormal nipple discharge, skin redness or tanning, skin dryness, alterations in breast size/shape. She continues to use lotion on the breast once a day. She has initiated anastrozole and reports occasional hot flashes but otherwise tolerating very well. She denies having chest wall muscular tightness or discomfort and has full arm range of motion without difficulty. She denies having cough, shortness of breath, hemoptysis. She denies odynophagia and dysphagia. She denies headaches, vision changes, focal weakness/numbness, ataxia, nausea/vomiting, fever/chills, bone pain, unexpected weight loss, or decreased appetite. She stays active in her daily life and denies having other problems or concerns at this time.d. Review of Systems: A 12-point review of systems was completed and was negative except for what is noted in the HPI/Interval History and by the nurse. Height/Weight/BMI: Height: 5 ft 3 in Weight: 175 lbs Vital Signs Temperature 98.2 F 04/02/20 09:40 Temperature Source Temporal 04/02/20 09:40 Pulse Rate 68 04/02/20 09:40 Respiratory Rate 14 04/02/20 09:40 Blood Pressure 136/74 H 04/02/20 09:40 Blood Pressure Mean 94 04/02/20 09:40 Blood Pressure Source Monitor 03/18/20 13:12 Blood Pressure Position Sitting 03/18/20 13:12 Blood Pressure Location Left Arm 03/18/20 13:12 Pulse Ox 96 04/02/20 09:40 Oxygen Delivery Method Room Air 04/02/20 09:40 Physical Exam: ECO KARNOFSKY SCORE: 90% CONSTITUTIONAL: Well-developed, well-nourished, and in no apparent distress. NECK: Supple,with no thyromegaly, and non-tender. Trachea midline. No cervical or supraclavicular adenopathy noted. CARDIAC: Regular rate and rhythm. Normal S1, S2. No murmurs, rubs, or gallops. PULMONARY/CHEST: Lungs are clear to auscultation and percussion bilaterally. No wheezes, rhonchi, or crackles noted. No increased work of breathing. ABDOMINAL: Abdomen soft, non-tender, non-distended. No hepatomegaly. Normoactive bowel sounds in all four quadrants. No guarding, rebound. BACK: Straight and aligned. No CVA tenderness. Axial skeleton non-tender to percussion. BREAST: Bilateral breasts were examined the seated and supine position. Within the right breast there is a curvilinear periareolar well-healed lumpectomy incision. There is no evidence for skin erythema or tanning. No palpable lesions are noted in either breast. There are no palpable lymph nodes in either axilla. EXTREMITIES: Full range of motion in all four extremities, with normal strength equally and symmetrically. No evidence of edema. No clubbing. NEUROLOGICAL EXAM: Alert and oriented x 3. Cranial nerves II through XII are grossly intact. No focal neurological deficit. Speech is fluent. Gait and posture are steady. PSYCHIATRIC: Appropriate mood and affect for the clinical situation. 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 From 02/24/2020 - 03/04/2020 she received 3000 cGy in 5 fractions to the right partial breast. She then initiated Anastrozole. Patient returns for a 1 month follow-up after completing accelerated partial breast irradiation to the right breast. There is no evidence of disease on exam. She does not have any notable side effects apparent for radiation therapy. I did review potential treatment associated side effects as well as their timing and management. I reviewed skin care instructions including lotion use and sun avoidance in the treated area. She is taking anastrozole without difficulty. For follow-up I recommended breast exam every 4 to 6 months during the first year and resumption of her annual mammography in December 2020. I will have her return for routine follow-up in 3 months and she was instructed to call with any further questions or concerns in the interim. Akash Caraballo DO, MS Plc Programmer, Department of Radiation Oncology [facility] 04/02/20 1118 <Electronically signed by Akash Caraballo DO> Date Akash Caraballo DO CC: Dr. Mir Vargas MD; Dr. De Higgins MD Signed Mera Hollingsworth Start: 03-18-2020 End: 03-18-2020 Oncology Visit Report Comments: See Note; NOTES: [facility] [place] [address] OFFICE VISIT Date of Service: 03/18/20 1329 MR#: [id number] Acct: [id number] Name: ALTAGRACIA MORALES Rep #: [id number] : 1940 From: Madisyn Longoria NP [employer] SUPERVISOR -C Age/Sex: 80/F Location: OMD Status: Signed Subjective - Date of Service Date of Service:: 03/18/20 - Chief Complaint Survivorship Care planning - History of Present Illness 80-year-old female who presented with a 1 year history of right nipple bloody discharge. Despite a negative mammogram in December 2019 she did undergo Ductal exploration with excisional biopsy right breast on January 15, [address] Higgins which revealed DCIS. 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 The tumor is 1 mm from the closest margin. Regional lymph nodes no lymph nodes submitted or found. Microcalcifications not identified Additional Pathologic Findings: -Nipple adenoma. - Focal atypical ductal hyperplasia. Ancillary Studies ([id number]): ER - >95%, strong intensity MO - >95%, strong intensity Her2 aki (IHC) negative (0) Clinical history bloody nipple discharge. Pathologic Staging: pTis(DCIS) pNx pMx - Interval History The patient is presenting to clinic to review her treatment summary and survivorship care plan. Reports good tolerance and adherence to anastrozole. C/o mild, intermittent hot flashes, do not interfere with activity. Experiencing mild fatigue subsequent to radiation therapy, however states each day is an improvement. Exercises (walks) 3 times per week and attends fitness center for weight training twice weekly. Taking calcium and vitamin D as advised. - Past Medical/Social History Past Medical History Cancer: Breast cancer Social History Social History: No changes Smoking Status Never smoker Review of Systems Constitutional:: Reports: Fatigue. Denies: Fever, Sweats, Weight loss, Appetite change, Chills Cardiovascular:: Denies: Chest pain, Palpitations, Dyspnea on exertion, Orthopnea, PND Respiratory: Denies: Cough, Hemoptysis, Shortness of Breath, Wheezing Gastrointestinal:: Denies: Abdominal pain, Nausea, Vomiting, Diarrhea, Constipation, Hematochezia Genitourinary: Denies: Dysuria, Hematuria, 15, Flank pain Musculoskeletal:: Denies: Back pain, Myalgia, Arthralgia Skin: Denies: Rash, Skin Changes, Wounds Neurological:: Denies: Headache, Dizziness Vital Signs Temperature 97.4 F L 03/18/20 13:12 Temperature Source Temporal 03/18/20 13:12 Pulse Rate 91 03/18/20 13:12 Respiratory Rate 14 03/18/20 13:12 Blood Pressure 143/71 H 03/18/20 13:12 Blood Pressure Mean 95 03/18/20 13:12 Blood Pressure Source Monitor 03/18/20 13:12 Blood Pressure Position Sitting 03/18/20 13:12 Blood Pressure Location Left Arm 03/18/20 13:12 Pulse Ox 97 03/18/20 13:12 Oxygen Delivery Method Room Air 03/18/20 13:12 - Physical Exam General: Alert, Oriented x3, No apparent distress HEENT: Atraumatic, Normocephalic Psychiatric:: Appropriate affect, Euthymic Breast:: - - Exam deferred today Assessment and Plan 80-year-old female with right breast DCIS, ER positive, presenting with bloodstained nipple discharge and negative mammogram status post exploration and excision January 15, 2020. She has a 1 mm margin. 1. Survivorship Care Planning- Reviewed treatment summary and survivorship care plan documentation. Copies of which are provided to the patient and all members of her health care team. Engaged in lengthy conversation regarding potential half-way/late side effects associated with chemotherapy exposure, recommendations for follow up and signs/symptoms of concern that should be report in between visits Healthy living recommendations:- Today we spent time discussing healthy lifestyle modifications inclusive of plant based diet including low fat, high fiber foods, low sodium and low cholesterol foods. We also discussed the importance of an exercise regimen of approx 5-6 days a week or physical activity >20 min per day and maintaining a healthy weight as well as minimal alcohol intake; abstinence from tobacco products. We discussed the appropriate health maintenance screenings for this patient. Continue to follow with pcp. Psychosocial spiritual health- She is well supported by family. Continues to adjust to life as a cancer survivor. We discussed sexual intimacy after cancer diagnosis, the fear of recurrence, coping strategies and potential resources. 2. DCIS, right breast- Adjuvant endocrine therapy advised for 5 years using an aromatase inhibitor based on t he NRG Oncology/NSABP B-35 trial (Lancet. 2016;387(48480):849. Epub 2014May 22). Good tolerance and adherence to anastrozole. Refilled for 1 year. 3. Osteopenia- involving right and left femoral necks on DEXA 01/02/20. Advised Prolia 60 mg SQ Q6 mo. Dental clearance obtained. Will prior auth prolia. Plan to administer when she is back in the clinic on 04/29/20. Greater than 50% of this one hour visit was spent in counseling and a significant amount of time was allotted for questions. All the patient's concerns were addressed to her satisfaction. Return to office on 04/02/[address] Caraballo and on 04/29/2020 as previously planned to see Dr. Vargas. Madisyn Longoria, MSN, [employer], AOCNP Medications: Prescriptions This Visit Medication Instructions Recorded Ergocalciferol [Vitamin D] 50,000 unit PO Q7D 01/29/20 Vit A/Vit C/Vit E/Zinc/Copper 1 tab PO DAILY 01/29/20 [Preservision Areds Softgel] Anastrozole [Arimidex] 1 mg PO DAILY 30 Days #30 tab 02/05/20 Primary Care Provider: Dr. Mera Hollingsworth DO Referring Provider: Dr. De Higgins MD - Problem List (1) Ductal carcinoma in situ (DCIS) of right breast Status: Acute (2) Encounter for education Status: Acute (3) Osteopenia Status: Chronic Qualifiers: Osteopenia location: femoral neck Laterality: bilateral Qualified Code(s): M85.851 - Other specified disorders of bone density and structure, right thigh; M85.852 - Other specified disorders of bone density and structure, left thigh 03/18/20 1419 <Electronically signed by Madisyn Longoria NP [employer]PER[employer]OR-[employer]> Date Madisyn Longoria NP [employer] SUPER[employer]OR-[employer] Cosigner Signature: Date (if applicable) CC: Mera Hollingsworth Start: 03-18-2020 End: 03-18-2020 End of Treatment Summary Comments: See Note; NOTES: [facility] [address] [place] [id number] End of Treatment Summary Date of Service: 03/18/20 1052 MR#: [id number] Acct: [id number] Name: ALTAGRACIA MORALES Rep #: [id number] : 1940 From: Madisyn Longoria NP [employer] SUPERVISOR -C Age/Sex: 80/F Location: OMD Status: Signed General Information Primary Care Provider:: Mera Hollingsworth Surgeon Name: De Higgins Radiation Oncologist:: Akash Caraballo Medical Oncologist:: Mir Vargas Other Providers:: Dr. 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 Estrogen receptor positive, progresterone receptor positive, HER2 negative Diagnosis Date [year]:: 01/15/2020 Stage:: Not applicable - stage 0 Surgery:: Yes Surgery Date[s] [year]:: 01/15/20 Surgical Procedure / Location / Findings:: Ductal exploration with excisional biopsy of the right breast (immediate undersurface of the nipple). 1.3 x 1.7 cm. Margins negative Radiation:: Yes Body area treated:: 3000 cGy/ 5 fractions delivered every other day to right breast End Date [year]:: 02/24/20-03/04/20 Systemic Therapy [chemotherapy, hormonal therapy, other]:: No Persistent symptoms of side effects at completion of treatment:: Yes If yes, enter type[s]:: Fatigue Follow-up Care Plan Need for ongoing [adjuvant] treatment for cancer:: Yes Additional Treatment Name #1:: Endocrine therapy- anastrozole Planned duration if additional treatment #1:: 5 years Possible side effects of additional treatment #1:: Hot flashes, joint pain, decrease in bone density, fatigue Schedule of Clinical Visits Coordination Provider:: Mir Vargas - 04/29/20 When/How often:: Every 3-6 months while on endocrine therapy Coordination Provider:: Akash Caraballo - 04/02/20 Cancer Surveillance/Other Test Coordination Provider:: Mir Vargas 12/2020 When/How often:: Bilateral screening mammogram yearly Coordination Provider:: Mir Vargas 12/2021 When/How often:: Bone density exam every 2 years Cancer Surveillance/Symptoms: Please continue to see your primary care provider for all general health care recommended for a F your age, including cancer screening tests. Any symptoms should be brought to the attention of your provider: * Anything that represents a brand new symptom * Anything that represents a persistent symptom * Anything you are worried about that might be related to the cancer coming back Cancer survivors may experience issues with the areas listed below:: Emotional and mental health, Physical functioning, Memory or concentration loss, Fatigue, Insurance, Sexual functioning Cancer Survivor Issues - Help: If you have any concerns in these or other areas, please speak with your doctors or nurses to find out how you can get help with them. A number of lifestyle/behaviors can affect your ongoing health, including the risk for the cancer coming back or developing another cancer. Discuss these recommendations with your doctor or nurse.: Alcohol use, Weight Management [loss/gain], Diet, Sunscreen use, Physical activity Other comments:: Prepared by Leslie Longoria, MSN, FAITH DOCTOR-C, AOCNP. Delivered on 03/18/20 03/18/20 1346 <Electronically signed by Madisyn Longoria NP MUNITIONS HANDLER SUPERVISOR-C> Date Madisyn Longoria NP MUNITIONS HANDLER SUPERVISOR-C Cosigner Signature: Date (if applicable) CC: Dr. 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 Oncologic History: 01/02/2020: Bilateral screening mammography was performed. This demonstrated no evidence of abnormality in either breast. BI-RADS Category 1. 01/06/2020: Patient was evaluated by surgery due to having a history of intermittent right nipple discharge which was apparently bloody. Recent imaging was unremarkable. Recommendation was to proceed with wire ductal exploration of the right breast with excisional biopsy. 01/15/2020: Patient underwent ductal exploration with excisional biopsy of the right breast. No focal mass was encountered but retroauricularly there was evidence for discolored ductules encountered, the dissection was completed on the immediate undersurface of the nipple. 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 Distance to the closest margin is 1 mm. Additionally found was a nipple adenoma and focal atypical ductal hyperplasia. 01/29/2020: Patient had consultation with medical oncology and recommendation was for adjuvant endocrine therapy with aromatase inhibitor and for consultation with radiation oncology. The patient completed a course of external beam radiotherapy in our department. This treatment was delivered for curative intent. Treatment was given according to the following parameters: ALTAGRACIA MORALES received 3000 cGy of mixed 6 and 10 MV photons in 5 fractions delivered every other day to the right breast with a 3D conformal technique. The patient did not receive concurrent chemotherapy. Date of First Treatment: 02/24/2020 Date of Last Treatment: 03/04/2020 Total Elapsed Days (including weekend and holidays): 9 Missed Treatments: none Response and Tolerance: The patient tolerated this course of radiotherapy well overall. She did not develop any radiation associated toxicities during the course of treatment. Total weight change during therapy: N/A Disposition: The patient tolerated the planned course of radiation therapy well without unexpected toxicity in an appropriate time course. I will have her follow-up in about 4 weeks for a routine visit to assess resolution of radiation toxicity. She was provided skin care instructions and instructed to call with any further questions or concerns arise in the interim. The patient will maintain scheduled follow-up visits with the other providers. If we can provide any further information on this patient's course of care, please do not hesitate to ask. We would like to thank you very much for allowing us to participate in the care of this patient. Sincerely, Akash Caraballo DO, MS Plc Programmer, Department of Radiation Oncology [facility] 03/04/20 1037 <Electronically signed by Akash Caraballo DO> Date Akash Caraballo DO Cosigner Signature: Date (if applicable) CC: Dr. Mera Hollingsworth DO; Dr. 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 Plan was made to complete APBI to the right breast consisting of 3000 cGy in 5 fractions qod Treatment Data: Treatment Site: right breast Current total dose/Total dose planned: 3000 cGy / 3000 cGy Fraction number: (qod) Chemotherapy: N/A Subjective: Pain: 0 / 10 Fatigue: none Breast: no edema or discomfort. No skin erythema, rash, or desquamation Height/Weight/BMI: Height: 5 ft 3 in Weight: 175.1 lbs Vital Signs Temperature 97.9 F 03/04/20 09:27 Temperature Source Temporal 03/04/20 09:27 Pulse Rate 70 03/04/20 09:27 Respiratory Rate 14 03/04/20 09:27 Blood Pressure 153/70 H 03/04/20 09:27 Blood Pressure Mean 97 03/04/20 09:27 Blood Pressure Source Monitor 03/04/20 09:27 Blood Pressure Position Sitting 03/04/20 09:27 Blood Pressure Location Right Arm 03/04/20 09:27 Pulse Ox 97 03/04/20 09:27 Oxygen Delivery Method Room Air 03/04/20 09:27 Objective: Gen: NAD Breast: right breast with well healed anterior incision. No erythema, desquamation, or rash. Assessment: Tolerating radiation therapy well overall. All treatment related imaging has been reviewed and approved No treatment associated toxicity noted at this time Plan: Completed treatment today Reviewed potential treatment associated toxicities as well as timing and management Follow up in one month or sooner if needed Thank you for allowing me to participate in the management and care of your patient. If I may answer any questions in the interim, please do not hesitate to contact me at any time. Akash Caraballo DO, MS Plc Programmer, Department of Radiation Oncology [facility] 03/04/20 0986 <Electronically signed by Akash Caraballo DO> Date Akash Caraballo DO [facility] Signature: Date (if applicable) CC: Mera Hollingsworth Start: 02-26-2020 End: 02-26-2020 Radiation Oncology Visit Comments: See Note; NOTES: [facility] [address] [address] OFFICE VISIT Date of Service: 02/26/20 0944 MR#: [id number] Acct: [id number] Name: ALTAGRACIA MORALES Rep #: [id number] : 1940 From: Akash Caraballo DO Age/Sex: 80/F Location: OMD Status: Signed Date of Service: 02/26/20 Diagnosis: Altagracia Morales is a 80-year-old female diagnosed with pathologic stage 0 (pTis Nx Mx) 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 Plan was made to complete APBI to the right breast consisting of 3000 cGy in 5 fractions qod Treatment Data: Treatment Site: right breast Current total dose/Total dose planned: 1200 cGy / 3000 cGy Fraction number: 2 / 5 (qod) Chemotherapy: N/A Subjective: Pain: 0 / 10 Fatigue: none Breast: no edema or discomfort. No skin erythema, rash, or desquamation Height/Weight/BMI: Height: 5 ft 3 in Weight: 176.9 lbs Vital Signs Temperature 97.7 F L 02/26/20 09:35 Temperature Source Temporal 02/26/20 09:35 Pulse Rate 63 02/26/20 09:35 Respiratory Rate 14 02/26/20 09:35 Blood Pressure 164/79 H 02/26/20 09:35 Blood Pressure Mean 107 02/26/20 09:35 Blood Pressure Source Monitor 02/26/20 09:35 Blood Pressure Position Sitting 02/06/20 09:00 Blood Pressure Location Left Forearm 02/26/20 09:35 Pulse Ox 97 02/26/20 09:35 Oxygen Delivery Method Room Air 02/26/20 09:35 Objective: Gen: NAD Breast: right breast with well healed anterior incision. No erythema, desquamation, or rash. Assessment: Tolerating radiation therapy well overall. All treatment related imaging has been reviewed and approved No treatment associated toxicity noted at this time Plan: Continue treatment as planned Reviewed potential treatment associated toxicities as well as timing and management Follow up next week or sooner if needed Thank you for allowing me to participate in the management and care of your patient. If I may answer any questions in the interim, please do not hesitate to contact me at any time. Akash Caraballo DO, MS Plc Programmer, Department of Radiation Oncology [facility] 02/26/20 0949 <Electronically signed by Akash Caraballo DO> Date Akash Caraballo DO Cosigner Signature: Date (if applicable) CC: Mera Hollingsworth Start: 02-06-2020 End: 02-06-2020 Consultation Comments: See Note; NOTES: [facility] Medical Records Department [address] [place] [address] Consultation 02/06/20 1016 MR#: [id number] Acct: [id number] Name: ALTAGRACIA MORALES Rep #: [id number] : 1940 80 From: Akash Caraballo DO PCP: Dr. 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 History of Present Illness: 01/02/2020: Bilateral screening mammography was performed. This demonstrated no evidence of abnormality in either breast. BI-RADS Category 1. 01/06/2020: Patient was evaluated by surgery due to having a history of intermittent right nipple discharge which was apparently bloody. Recent imaging was unremarkable. Recommendation was to proceed with wire ductal exploration of the right breast with excisional biopsy. 01/15/2020: Patient underwent ductal exploration with excisional biopsy of the right breast. No focal mass was encountered but retroauricularly there was evidence for discolored ductules encountered, the dissection was completed on the immediate undersurface of the nipple. 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 Distance to the closest margin is 1 mm. Additionally found was a nipple adenoma and focal atypical ductal hyperplasia. 01/29/2020: Patient had consultation with medical oncology and recommendation was for adjuvant endocrine therapy with aromatase inhibitor and for consultation with radiation oncology. Radiation Treatment History: No previous radiation therapy. No pacemaker. No diagnosis of collagen vascular disease. Interval History: Patient presents for initial consultation. She reports that she has been getting mammograms every other year and has never had any previous abnormalities or biopsies. She also has no family history of breast cancer. She presented in July with bloody nipple discharge and was evaluated by surgery but the symptoms abated and she was told to follow-up if they recur. In December she had a second recurrence of bloody nipple discharge and mammogram did not display any evidence of abnormality. She had no associated symptoms with the nipple discharge including breast pain, nodularity, swelling, skin redness/bruising, infection, fever/chills. She denies headaches, vision changes, focal weakness/numbness, ataxia, unexpected weight loss, fatigue, change in appetite, bone pain, cough, shortness of breath, hemoptysis, dysphasia, odynophagia. She completed excisional biopsy of the right breast which removed grade 1 DCIS approximately 3 weeks ago. She reports healing very well without difficulty. She denies current discomfort in her breast or swelling/seroma. She has no difficulty with arm range of motion. She lives alone and completes all activities of daily living without any difficulty. She stays very active in her daily life. She started anastrozole yesterday and believes she has not had any toxicities to this point. She denies having other problems or concerns at this time. Family History (Last Reviewed 02/06/20 @ 09:01 by Tori Daniel RN) Brother Hypercholesterolemia Colon cancer Sister Diabetes Hypertension Father Diabetes Hypertension Medical History (Last Reviewed 02/06/20 @ 09:01 by Tori Daniel RN) Ductal carcinoma in situ (DCIS) of right breast (Acute) Nipple discharge, bloody (Acute) Nipple discharge (Acute) Positive colorectal cancer screening using Cologuard test (Acute) Post-menopausal (Acute) Vitamin D deficiency (Acute) Surgical History (Last Reviewed 02/06/20 @ 09:01 by Tori Daniel RN) Status post right breast lumpectomy (Acute) History of right breast biopsy (Acute) History of right cataract surgery (Acute) S/P colonoscopy (Acute) Status post right breast lumpectomy (Acute) right breast biopsy DCIS Gynecological History Age at first period: 14 Hx Age of Menopause 66 Do you have regular salon stylist No examinations and PAP smears? Hx Control Yes: 1970 Hx Hormone Therapy Yes: maybe 1 year Obstetrical History Number of pregnancies: 2 Number of children: 2 Have you ever breastfed in the No past? Breast Health Monthly breast self-exams No performed? Do you have regular clinical Yes breast examinations? Have you ever had an abnormal Yes mammogram? Social History - Tobacco Smoking Status Never smoker Smokeless tobacco usage: Never Passive smoke exposure: No Social History - Substance Drug use: No Alcohol use: No Social History - Living Arrangements Patients Living Arrangements Alone Home Medications Medication Instructions Recorded calcium carbonate 500 mg calcium 500 mg PO BID 08/08/19 (1,250 mg) tablet mecobalamin (vitamin B12) 5,000 5,000 mcg PO DAILY 08/08/19 mcg disintegrating tablet multivitamin with minerals 1 tab PO BID tab 08/08/19 Ergocalciferol [Vitamin D] 50,000 unit PO Q7D 01/29/20 Vit A/Vit C/Vit E/Zinc/Copper 1 tab PO DAILY 01/29/20 [Preservision Areds Softgel] Anastrozole [Arimidex] 1 mg PO DAILY 30 Days #30 tab 02/05/20 Allergy/AdvReac Type Severity Reaction Status Date / Time Penicillins Allergy Rash Verified 02/06/20 09:09 Health Maintenance Do you regularly see your Yes primary care physician? Have you ever had a Yes colonoscopy? Date of last colonoscopy: 06/12/16 Review of Systems: ROS: General (done by nursing) Fever Negative Sweats at night Negative Hot flashes Positive Temperature intolerance Negative Excessive thirst Negative Fatigue Positive Sleep difficulties Negative Unexplained weight loss Negative ROS: Skin (done by nursing) Rash Negative New or changing moles Negative ROS: Eyes (done by nursing) Eye pain Negative Eye redness Negative Visual changes Negative ROS: Ears, Nose, Throat (done by nursing) Hearing loss Positive Tinnitus Negative Dizzines or vertigo Positive Bleeding gums Negative Nosebleeds Negative ROS: Breast (done by nursing) Breast pain Negative Breast mass or lump Negative Nipple discharge Negative Breast skin changes Negative ROS: Cardiovascular (done by nursing) Chest pain Negative Heart murmur Negative Irregular heartbeat Negative Swelling Negative ROS: Pulmonary (done by nursing) Shortness of breath Negative Cough Negative Hemoptysis Negative ROS: Hematopoetic (done by nursing) Swollen lymph glands Negative Blood clots Negative Excessive bleeding Negative Anemia Negative ROS: Gastrointestinal (done by nursing) Diarrhea Negative Constipation Negative Indigestion/heartburn Negative Nausea Negative Abdominal pain Negative Hematochezia Negative ROS: Genitourinary (done by nursing) Pain, burning, or blood on Negative urination Frequency Negative Nocturia Negative Excessive urination Negative Difficulty emptying bladder Negative Incontinence Negative Decreased sexual desire Negative Pain with intercourse Negative Sexually Transmitted Disease Negative Fertility issues Negative ROS: Genitourinary - Female (done by nursing) Heavy vaginal discharge Negative Heavy menstrual bleeding Negative Painful menstrual periods Negative Irregular menstrual periods Negative ROS: Musculoskeletal (done by nursing) Generalized or all-over pain Negative Joint pain Negative Stiffness Negative Joint swelling Negative Joint redness Negative Back or neck pain Negative ROS: Neurological (done by nursing) Abnormal/trouble walking or Negative falls Headache Negative Seizures Negative Muscle weakness Negative TIA or stroke Negative Syncope Negative Localized numbness, tingling, Negative neuropathy ROS: Psychological (done by nursing) Anxiety Negative Depression Negative Memory loss Negative Mood swings Negative Height/Weight/BMI: Height: 5 ft 3 in Weight: 173.4 lbs Vital Signs Temperature 97.5 F L 02/06/20 09:00 Temperature Source Temporal 02/06/20 09:00 Pulse Rate 69 02/06/20 09:00 Respiratory Rate 14 02/06/20 09:00 Blood Pressure 149/75 H 02/06/20 09:00 Blood Pressure Mean 99 02/06/20 09:00 Blood Pressure Source Monitor 02/06/20 09:00 Blood Pressure Position Sitting 02/06/20 09:00 Blood Pressure Location Right Arm 02/06/20 09:00 Pulse Ox 97 02/06/20 09:00 Oxygen Delivery Method Room Air 02/06/20 09:00 Physical Exam: ECO KARNOFSKY SCORE: 100% CONSTITUTIONAL: Well-developed, well-nourished, and in no apparent distress. NECK: Supple,with no thyromegaly, and non-tender. Trachea midline. No cervical or supraclavicular adenopathy noted. CARDIAC: Regular rate and rhythm. Normal S1, S2. No murmurs, rubs, or gallops. PULMONARY/CHEST: Lungs are clear to auscultation and percussion bilaterally. No wheezes, rhonchi, or crackles noted. No increased work of breathing. ABDOMINAL: Abdomen soft, non-tender, non-distended. No hepatomegaly. Normoactive bowel sounds in all four quadrants. No guarding, rebound. BREAST: Bilateral breasts were examined the seated and supine position. Breasts appear symmetrical. Within the right breast just medial to the areola there is a well-healed curvilinear incision. No palpable lesions are identified and there is no evidence of nipple discharge. BACK: Straight and aligned. No CVA tenderness. Axial skeleton non-tender to percussion. EXTREMITIES: Full range of motion in all four extremities, with normal strength equally and symmetrically. No evidence of edema. No clubbing. NEUROLOGICAL EXAM: Alert and oriented x 3. Cranial nerves II through XII are grossly intact. No focal neurological deficit. Speech is fluent. Gait and posture are steady. PSYCHIATRIC: Appropriate mood and affect for the clinical situation. 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 Patient presents for initial consultation. She is a very healthy 80-year-old who is recovered from surgery, she has a very high performance status and essentially no other comorbidities. I had a long discussion with the patient regarding the diagnosis grade 1 papillary and micropapillary type DCIS. I discussed that DCIS is a non-invasive breast cancer that doesn???t have the propensity to invade and spread lymphatically or hematogenously. I reviewed the risk of disease recurrence and how the magnitude of disease recurrence is dependent on several factors including ER/MO receptor status, tumor size, tumor grade/necrosis, margin status, as well as potentially other factors such as age. She has grade 1 disease without necrosis, negative margins (close at 0.1 cm), ER/MO+, 1.7 x 1.3 cm tumor. I reviewed the data including historic randomized trials showing an improvement in ipsilateral breast event (recurrence of DCIS or invasive tumor) rates with the addition of radiation therapy to surgery. These trials were done in an era with more high-risk disease not detected by screening mammography and therefore the risk of recurrence after surgery alone is likely higher than the modern rates with mammogram screening and early detection. I reviewed the more modern trials which evaluated the risk of disease recurrence with observation (ECOG 5194) and also when comparing observation with tamoxifen to radiation (RTOG 9804). The intermediate/low-grade observation arm showed 14% risk of ipsilateral breast recurrence (about 50% being invasive disease) at 12 years. Regarding the RTOG-9804 trial I explained that the addition of radiation therapy reduced recurrence at 7 years from 7% to about 1%, or essentially about 1% per year with observation. I also reviewed her risk of recurrence using the [facility] nomogram which predicts a risk of recurrence of 6% at 5 years and 9% at 10 years if she takes tamoxifen and 11% at 5 years and 18% at 10 years if she doesn???t. All together I would estimate her risk of ipsilateral breast tumor recurrence of about 1% per year without radiation. I explained that the addition of radiation therapy would be expected to reduce the risk of recurrence by at least 60% and that half of the recurrences are invasive disease and the other half are DCIS. Regardless of her treatment choice I emphasized that overall survival is not different with or without adjuvant radiation therapy for DCIS. I also discussed the use of hormone therapy and how that can reduce the risk of recurrence in the breast and also reduce the risk of developing a de sravani cancer in the opposite breast. We discussed options of observation, APBI, and whole breast irradiation. She started anastrozole and thinks she will try to take it for at least 5 years. I believe observation is very reasonable, she does however have a close margin, presented clinically, is unsure if she wants to do hormone therapy, and although 80 years old is in excellent health and has longevity into the 90s in her family so completing treatment would also be reasonable. The risks, benefits, and alternatives to radiation therapy were discussed and all questions were answered. I explained what a course of breast radiation entails. Radiation proceeds over several week times and is delivered Monday through Monday, 5 days per week. The process for planning a radiation course including the need for CT simulation, placement of tattoos, generation of a virtual 3 dimensional conformal radiation therapy plan from the acquired CT images, and the need for verification of the computer generated plan prior to beginning treatment was explained. I reviewed with patient the acute side effects of treatment and the risk potential for late complications. She was made aware that the acute side effects she may experience include, but are not limited to, skin erythema, tanning, breast discomfort, breast swelling, and fatigue. The temporary nature of these symptoms was explained, the supportive therapies that are available should they occur reviewed and the average timeline for their resolution was given. I did discuss that there is a risk for long- term more permanent complications from breast irradiation. These include but are not limited to a, risk of permanent skin color change on the treated breast that is usually tanning but can be hypopigmentation, risk of increased firmness or edema of the breast that does not generally alter the breast appearance significantly and an increased risk of severe radiation fibrosis that can impact the breast appearance and result in discomfort. Finally, there is a rare < 1% risk for radiation pneumonitis when a portion of the ipsilateral lung is included in the field, and a remote, < 0.1%, risk for a secondary cancer. I reviewed the use of prone positioning to spare normal tissues. Following our discussion about the risks and benefits, the patient believes she would like to pursue adjuvant radiation therapy and informed consent was obtained. She would like to discuss with her son and also have me discuss with her son prior to finalizing her decision. Plan: 1) further considering options prior to decision about radiation, if she decides to pursue adjuvant radiation we will have her return in the near future for CT simulation Thank you for allowing me to participate in the management and care of your patient. If I may answer any questions in the interim, please do not hesitate to contact me at any time. Akash Caraballo DO, MS Plc Programmer, Department of Radiation Oncology [facility] 02/06/20 1043 <Electronically signed by Akash Caraballo DO> Date Akash Caraballo DO Cosigner Signature (if applicable): Date CC: Dr. Mera Hollingsworth DO; Dr. Mir Vargas MD; Dr. De Higgins MD Signed Mera Hollingsworth Start: 02-05-2020 End: 02-05-2020 Oncology Visit Report Comments: See Note; NOTES: [facility] [place] [address] [place] [address] OFFICE VISIT Date of Service: 02/05/20 1021 MR#: [id number] Acct: [id number] Name: ALTAGRACIA MORALES Rep #: [id number] : 1940 From: Madisyn MÁRQUEZ Age/Sex: 80/F Location: OMD Status: Signed Subjective - Date of Service Date of Service:: 02/05/20 - Chief Complaint Endocrine therapy education- anastrozole - History of Present Illness 80-year-old female who presented with a 1 year history of right nipple bloody discharge. Despite a negative mammogram in December 2019 she did undergo Ductal exploration with excisional biopsy right breast on January 15, [address] Higgins which revealed DCIS. 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 The tumor is 1 mm from the closest margin. Regional lymph nodes no lymph nodes submitted or found. Microcalcifications not identified Additional Pathologic Findings: -Nipple adenoma. - Focal atypical ductal hyperplasia. Ancillary Studies ([id number]): ER - >95%, strong intensity MO - >95%, strong intensity Her2 aki (IHC) negative (0) Clinical history bloody nipple discharge. Pathologic Staging: pTis(DCIS) pNx pMx - Interval History The patient is presenting to clinic today for endocrine therapy education. Is been proposed she begin adjuvant AI therapy. Scheduled for consultation with radiation oncology, Dr. Caraballo tomorrow, 02/06/20. Describes good support system at home by way of friends and family and active lifestyle (pre-COVID 19) consisting of aqua aerobics and exercise at the community [place]. - Past Medical/Social History Past Medical History Cancer: Breast cancer Social History Social History: No changes Smoking Status Never smoker Review of Systems Constitutional:: Denies: Fever, Sweats, Weight loss, Appetite change, Chills Cardiovascular:: Denies: Chest pain, Palpitations, Dyspnea on exertion, Orthopnea, PND Respiratory: Denies: Cough, Hemoptysis, Shortness of Breath, Wheezing Gastrointestinal:: Denies: Abdominal pain, Nausea, Vomiting, Diarrhea, Constipation, Hematochezia Genitourinary: Denies: Dysuria, Hematuria, 15, Flank pain Musculoskeletal:: Denies: Back pain, Myalgia, Arthralgia Skin: Denies: Rash, Skin Changes, Wounds Neurological:: Denies: Headache, Dizziness, Visual changes, Tinnitus, Hearing loss Psychiatric: Denies: Anxiety, Depression Vital Signs Temperature 98.3 F 02/05/20 10:17 Temperature Source Temporal 02/05/20 10:17 Pulse Rate 82 02/05/20 10:17 Respiratory Rate 16 02/05/20 10:17 Blood Pressure 139/74 H 02/05/20 10:17 Blood Pressure Mean 95 02/05/20 10:17 Blood Pressure Source Monitor 02/05/20 10:17 Blood Pressure Position Sitting 02/05/20 10:17 Blood Pressure Location Left Arm 02/05/20 10:17 Pulse Ox 98 02/05/20 10:17 Oxygen Delivery Method Room Air 02/05/20 10:17 - Physical Exam General: Alert, Oriented x3, No apparent distress HEENT: Atraumatic, Normocephalic Psychiatric:: Appropriate affect, Euthymic Assessment and Plan 80-year-old female with right breast DCIS, ER positive, presenting with bloodstained nipple discharge and negative mammogram status post exploration and excision January 15, 2020. She has a 1 mm margin. 1. DCIS, right breast- Adjuvant endocrine therapy advised for 5 years using an aromatase inhibitor based on t he NRG Oncology/NSABP B-35 trial (Lancet. 2016;387(24652):849. Epub 2014May 22). The patient has been thoroughly educated to risks/benefits associated with anastrozole. Specifically, she has been educated to potential side effects, recommendations for symptom management, and circumstances in which she should contact provider prior to planned follow up, such as myalgias, hot flashes causing interference with ADLs. She has been provided written educational information regarding aromatase inhibitor therapy and lists of estrogenic herbs/supplements to avoid. I reviewed recommendations for calcium and vitamin D supplementation and the importance of weight bearing activity. A significant amount of time was allotted for questions. All the patient's concerns were addressed to her satisfaction and she is agreeable to proceed. 2 Osteopenia- involving right and left femoral necks on DEXA 01/02/20. Advised Prolia 60 mg SQ Q6 mo. Risks and benefits associated with denosumab reviewed including hypocalcemia and ONJ. Patient will require dental clearance. She is already been given a dental clearance form and has a visit with her dentist scheduled for 02/06/2020. She is encouraged to contact our office when that form is complete and we will initiate a prior authorization with her insurance. Also stressed the importance of adequate calcium and vitamin D supplementation and daily weightbearing exercise. Return to office on 04/29/2020 as previously planned to see Dr. Vargas. Scheduled for survivorship care planning early March. Madisyn Longoria, MSN, WATCH CRYSTAL CUTTER, AOCNP Medications: Prescriptions This Visit Medication Instructions Recorded Ergocalciferol [Vitamin D] 50,000 unit PO Q7D 01/29/20 Vit A/Vit C/Vit E/Zinc/Copper 1 tab PO DAILY 01/29/20 [Preservision Areds Softgel] Primary Care Provider: Dr. Mera Hollingsworth DO Referring Provider: Dr. De Higgins MD - Problem List (1) Ductal carcinoma in situ (DCIS) of right breast Status: Acute (2) Osteopenia Status: Chronic Qualifiers: Osteopenia location: femoral neck Laterality: bilateral Qualified Code(s): M85.851 - Other specified disorders of bone density and structure, right thigh; M85.852 - Other specified disorders of bone density and structure, left thigh (3) Encounter for education Status: Acute 02/05/20 0733 <Electronically signed by Madisyn JENKINSC> Date Madisyn MÁRQUEZ Cosigner Signature: Date (if applicable) CC: Mera Hollingsworth Start: 01-29-2020 End: 01-29-2020 Oncology History and Physical Comments: See Note; NOTES: [facility] Medical Records Department [address] [place] [address] History and Physical 01/29/20 0946 MR#: [id number] Acct: [id number] Name: ALTAGRACIA MORALES Rep #: [id number] : 1940 80 From: Mir Vargas MD PCP: Dr. Mera Hollingsworth, DO Status:REG RCR Y Location: OMD - Problem List (1) Ductal carcinoma in situ (DCIS) of right breast Status: Acute Subjective Date of Service:: 01/29/20 Chief Complaint: Breast cancer History of Present Illness: 80-year-old female who presented with a 1 year history of right nipple bloody discharge. Despite a negative mammogram in December 2019 she did undergo Ductal exploration with excisional biopsy right breast on January 15, [address] Higgins which revealed DCIS. 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 The tumor is 1 mm from the closest margin. Regional lymph nodes no lymph nodes submitted or found. Microcalcifications not identified Additional Pathologic Findings: -Nipple adenoma. - Focal atypical ductal hyperplasia. Ancillary Studies ([id number]): ER - >95%, strong intensity MO - >95%, strong intensity Her2 aki (IHC) negative (0) Clinical history bloody nipple discharge. Pathologic Staging: pTis(DCIS) pNx pMx Power of Coagulating Bath Operator: Yes Living Will: Yes Health History: Past Medical History Cancer: Breast cancer Past Medical History (Last Reviewed 01/29/20 @ 09:40 by Tori Daniel RN) Ductal carcinoma in situ (DCIS) of right breast (Acute) Nipple discharge, bloody (Acute) Nipple discharge (Acute) Positive colorectal cancer screening using Cologuard test (Acute) Post-menopausal (Acute) Vitamin D deficiency (Acute) Past Surgical History (Last Reviewed 01/29/20 @ 09:40 by Tori Daniel RN) Status post right breast lumpectomy (Acute) History of right breast biopsy (Acute) History of right cataract surgery (Acute) S/P colonoscopy (Acute) Status post right breast lumpectomy (Acute) Family History (Last Updated 01/29/20 @ 09:40 by Tori Daniel RN) Brother Hypercholesterolemia Colon cancer Sister Diabetes Hypertension Father Diabetes Hypertension Social History Smoking Status Never smoker Allergies/Adverse Reactions: Allergy/AdvReac Type Severity Reaction Status Date / Time Penicillins Allergy Rash Verified 01/29/20 09:38 Risk Factors Social History Smoking Status Never smoker Tobacco Risk Data: Tobacco Risk Smoking Status Never smoker Type of tobacco: Smokeless tobacco usage: Never Items/Day: Year started: Years used: Counseled to quit/cut down: Reason for no counseling performed: Reason for no pharmacotherapy: Tobacco use comments: Passive smoke exposure: No Substance Risk Drug use: No Caffeine use [drinks/day]: Alcohol use: No Type of alcohol: Drinks per day: Has patient felt the need to cut down: Has the patient been annoyed by complaints: Has the patient felt guilty about drinking: Has the patient needed an eye mechanical adjuster in the mornings: Comments: Date of last colonoscopy:: 06/12/16 Review of Systems Constitutional:: Denies: Fever, Sweats, Weight loss, Appetite change, Chills Cardiovascular:: Denies: Chest pain, Palpitations, Dyspnea on exertion, Orthopnea, PND, Shortness of breath Respiratory: Denies: Cough, Hemoptysis, Shortness of Breath, Wheezing Gastrointestinal:: Denies: Abdominal pain, Nausea, Vomiting, Diarrhea, Constipation, Hematochezia Genitourinary: Denies: Dysuria, Hematuria, 15, Flank pain Musculoskeletal:: Denies: Back pain, Myalgia, Arthralgia Skin: Denies: Rash, Skin Changes, Wounds Neurological:: Reports: Hearing loss. Denies: Headache, Dizziness, Visual changes, Tinnitus Psychiatric: Denies: Anxiety, Depression, Homicidal Ideations, Suicidal Ideations Vital Signs Temperature 97.8 F 01/29/20 09:41 Temperature Source Temporal 01/29/20 09:41 Pulse Rate 79 01/29/20 09:41 Respiratory Rate 16 01/29/20 09:41 Blood Pressure 156/82 H 01/29/20 09:41 Blood Pressure Mean 106 01/29/20 09:41 Blood Pressure Source Monitor 01/29/20 09:41 Blood Pressure Position Sitting 01/29/20 09:41 Blood Pressure Location Right Arm 01/29/20 09:41 Pulse Ox 97 01/29/20 09:41 Oxygen Delivery Method Room Air 01/29/20 09:41 - Physical Exam General: Alert, Oriented x3, No apparent distress, - - ECOG 1, elderly, hard of hearing but able to communicate well HEENT: Atraumatic, PERRLA, EOMI, Normocephalic Oropharynx:: Dry mucosa Neck:: Supple, Trachea midline. Negative for: JVD, bilateral Cardiac:: Regular rate, Regular rhythm, Normal S1, Normal S2. Negative for: Murmur Lungs: Clear to auscultation, Excusion symmetrical. Negative for: Rhonchi, Wheezes Abdomen:: Soft, Non-tender, Non-distended. Negative for: Hepatosplenomegaly Extremities:: Negative for: Cyanosis, Edema Neurological: Neuro grossly intact Skin:: Negative for: Lesions, Rash, Petechiae, Ecchymosis Psychiatric:: Appropriate affect, Euthymic Lymphatics:: Negative for: Cervical lymphadenopathy, Supraclavicular lymphadenopathy Pathology Data: See HPI Assessment and Plan 80-year-old female with right breast DCIS, ER positive, presenting with bloodstained nipple discharge and negative mammogram status post exploration and excision January 15, 2020. She has a 1 mm margin. Recommendation: I reviewed the most recent NCCN guidelines and up-to-date review of DCIS and advice: 1-adjuvant endocrine therapy for 5 years using an aromatase inhibitor based on t NRG Oncology/NSABP B-35 trial (Lancet. 2016;387(97546):849. Epub 2014May 22). 2-with pre-existing postmenopausal osteopenia despite vitamin D and calcium supplementation advise bone supportive therapy with Prolia 60 MCG subcu every 6 months after obtaining dental clearance. 3-radiation oncology consultation and decision making regarding adjuvant radiation therapy. 4-patient is to schedule a formal anticancer therapy teaching session with MUNITIONS HANDLER SUPERVISOR, follow-up with myself in 3 months. Impression and recommendations discussed, main side effects of AI therapy (hot flashes, dyslipidemia, bone loss, and musculoskeletal complaints) were discussed. Mir Vargas MD Plc Programmer, [facility] Divisions of Medical Oncology Hematology Department of Internal Medicine [place] [id number] This note was generated using a voice recognition system software. Although it was reviewed by the author prior to finalization, it may still contain incorrect words, spelling, and punctuation that were not noted when reviewing prior to saving. If a clinically significant typo or inaccurately typed phrase is noted, please notify the author.. Medications: Prescriptions This Visit Medication Instructions Recorded Ergocalciferol [Vitamin D] 50,000 unit PO Q7D 01/29/20 Vit A/Vit C/Vit E/Zinc/Copper 1 tab PO DAILY 01/29/20 [Preservision Areds Softgel] Primary Care Provider: Dr. Mera Hollingsworth DO Referring Provider: Dr. De Higgins MD 01/29/20 1142 <Electronically signed by Mir Vargas MD> Date iMr Vargas MD Cosigner Signature: Date (if applicable) CC: Dr. Mera Hollingsworth DO; Dr. Mir Vargas MD; Dr. De Higgins MD; Dr. Akash Caraballo DO Signed Mera Hollingsworth Start: 01-24-2020 End: 01-24-2020 Surgery Visit Report Comments: See Note; NOTES: [facility] [address] [place] [address] [place], [place] [id number] OFFICE VISIT Date of Service: 01/24/20 MR#: [id number] Acct: [id number] Name: ALTAGRACIA MORALES Rep #: [id number] : 1940 Provider: Dr. De sanchez MD Age/Sex: 79/F Location: [facility] Status: Signed Intake Intake Visit Reasons: 10 DAY F/U BREAST BIOPSY 01/14 Chief Complaint: follow up right breast biopsy Playground Monitor Required: No Is patient in pain?: No Allergies Penicillins Allergy (Verified 01/24/20 10:28) Rash Medications calcium carbonate 500 mg calcium (1,250 mg) tablet 500 mg PO BID 08/08/19 [History Confirmed 01/24/20] mecobalamin (vitamin B12) 5,000 mcg disintegrating tablet 5,000 mcg PO DAILY 08/08/19 [History Confirmed 01/24/20] multivitamin with minerals 1 tab PO BID tab 08/08/19 [History Confirmed 01/24/20] Subjective Details: 78 almost 80-year-old female who complained of recurrent right nipple discharge. She underwent a ductal exploration with retroareolar excisional biopsy on January 15, 2020. No specific clinical indicators were identified at the time of her surgery. It almost appeared that she had small cystic disease. Final pathology however reveals ductal carcinoma in situ. The amount of tissue involved 1.7 x 1.3 cm. Nuclear grade 1. Margins uninvolved but close at 1 mm. Estrogen receptor greater than 95%. Progesterone receptor greater than 95%. HER-2/aki negative. pTis(DCIS) pNx pMX Objective Details: Very nicely healing right breast curvilinear periareolar incision medially Assessment Plan Problems 1. Status post right breast lumpectomy Z98.890 2. Ductal carcinoma in situ (DCIS) of right breast D05.11 Plan Unexpected DCIS right breast. Ductal exploration excisional biopsy based upon nipple discharge. Mammographic imaging December 2019 unremarkable Patient is almost age 80. I will refer her to oncology for consultation. She has had an opportunity to ask and have questions answered. There were no specific clinical markers of disease guiding surgical excision and extent initially so if recurrent reexcision was recommended this would be a blind approach requiring surgical re-excision of all biopsy edges. Unfortunately there would be no way to guide appropriate reexcision at the time of surgery. This would not be my initial recommendation. She has had an opportunity to ask and have questions answered. I appreciate the ongoing opportunity of assisting with her surgical care. Copy: Dr. Mear Higgins M.D., F.A.C.S. Orders Referrals: Oncology D05.11, Z98.890 Coding Level of Care Code Global Post Op Diagnoses Status post right breast lumpectomy Z98.890 Ductal carcinoma in situ (DCIS) of right breast D05.11 01/24/20 1103 <Electronically signed by De Higgins MD> Date De Higgins MD Cosigner Signature: Date (if applicable) CC: DO Mera Spicer Start: 01-15-2020 End: 01-15-2020 Operative Report Comments: See Note; NOTES: [facility] Medical Records Department [address] [place] [address] Operative Report 01/15/20 1007 MR#: [id number] Acct: [id number] Name: ALTAGRACIA MORALES Rep #: [id number] : 1940 79 From: De Higgins MD PCP: Dr. Mera Hollingsworth DO Status:[facility] Y Location: [facility] Problem List (1) Nipple discharge, bloody Status: Acute Report of Operation Date of Procedure: 01/15/20 Pre-Operative Diagnosis: Bloody right nipple discharge Post-Operative Diagnosis: Same Surgery/Procedure Performed:: Ductal exploration with excisional biopsy right breast Description of Surgical Findings:: Timeout and informed consent was obtained. 79-year-old female was taken to the operating room placed supine on the table and underwent general anesthesia. Clindamycin 900 mg were given intravenously. The right breast was sterilely prepped draped. The seventh that centrally there was a brownish discharge. I inserted a lacrimal duct probe. I then made a periareolar incision from 1:00 to 3:00. Sharp dissection was was carried down retroauricularly and discolored ductules encountered. Using the probe as a guide I did sharp dissection in a cylindrical fashion deeper into the breast and attempt to try to excise all of the tissue along the ductal plane. Hemostasis was obtained throughout with cautery. No focal mass was encountered. The specimen was submitted as the dissection was completed on the immediate undersurface of the nipple. The wound was closed with a deep layer of interrupted 3-0 Vicryl and then interrupted 4-0 Monocryl subdermal stitches. The lisset-incisional area was anesthetized with 0.5% Marcaine. A total of 27 cc. Steri-Strips Telfa OpSite bulky dry dressing applied. Sponge and instrument and needle counts were reported to the surgeon to be correct. Blood loss minimal. Specimen is retroareolar breast tissue. Drains none. Blood loss minimal. The patient was taken to the recovery area in satisfactory edition without apparent complication De Higgins M.D., F.A.C.S. Type of Anesthesia:: General Anesthesiologist: Kimberly Connor 01/15/20 1238 <Electronically signed by De Higgins MD> Date De Higgins MD CC: Dr. Mera Hollingsworth DO; Dr. De Higgins MD Signed Mera Hollingsworth Start: 01-15-2020 End: 01-15-2020 Discharge Instruction Comments: See Note; NOTES: [facility] Medical Records Department [address] [place] [address] Instructions for Home/Discharge Instructions 01/15/2006 MR#: [id number] Acct: [id number] Name: ALTAGRACIA MORALES Rep #: [id number] : 1940 79 From: De Higgins MD PCP: Dr. Mera Hollingsworth DO Status:DEP [facility] Discharge Diet: No Restrictions Discharge Activity: May Not Drive - for 2-3 days or while taking narcotic pain meds. May shower in (days): 1 Lifting Restrictions: 10 pounds for 1 week. Call your doctor if your incision/area has: Continuous Slow Oozing, Sudden Increased Bleeding Call your doctor if you observe: Fever of 101 or Higher Suture Line Care: Avoid Pulling/Pushing, Avoid Pinching/Bending Remove Dressing in (days):: 1 - Remove bulky dressing tomorrow. May leave any opsite dressing for 3- 4 days. Keep dressing in place until your follow-up appointment. Additional Dressing/Incision Instructions:: Remove bulky dressing tomorrow. May leave any opsite dressing for 3-4 days. Keep dressing in place until your follow-up appointment. Allergies/Adverse Reactions: Allergies Penicillins Allergy (Verified 01/15/20 07:38) Rash Medications to take at Discharge calcium carbonate 500 mg calcium (1,250 mg) tablet 500 mg PO BID 08/08/19 mecobalamin (vitamin B12) 5,000 mcg disintegrating tablet 5,000 mcg PO DAILY 08/08/19 multivitamin with minerals 1 tab PO BID tab 08/08/19 Primary Care Physician: Mera Hollingsworth DO [Primary Care Provider] - Please Follow Up With: De Higgins MD When: Appt. [phone] Approx. 10 days please 01/15/20 1238 <Electronically signed by De Higgins MD> Date De Higgins MD CC: Dr. Mera Hollingsworth DO Signed Mera Hollingsworth Start: 01-15-2020 End: 01-15-2020 History and Physical Exam Comments: See Note; NOTES: [facility] Medical Records Department [address] [place] [address] History and Physical 01/15/20 0905 MR#: [id number] Acct: [id number] Name: ALTAGRACIA MORALES Rep #: [id number] : 1940 79 From: De Higgins MD PCP: Dr. Mera Hollingsworth DO Status:REG SDC Y Location: [place] [address] Problem List (1) Nipple discharge, bloody Status: Acute History and Physical Date of Admission: 01/15/20 Intake Visit Reasons: 1 YEAR F/U R BRST, MAMMO 01/02/2020 [facility] Chief Complaint: follow up mammogram/nipple discharge Playground Monitor Required: No Is patient in pain?: No Allergies Penicillins Allergy (Verified 01/06/20 13:00) Rash Medications calcium carbonate 500 mg calcium (1,250 mg) tablet 500 mg PO BID 08/08/19 [History Confirmed 01/06/20] mecobalamin (vitamin B12) 5,000 mcg disintegrating tablet mcg PO 08/08/19 [History Confirmed 01/06/20] multivitamin with minerals 1 tab PO BID tab 08/08/19 [History Confirmed 01/06/20] omega-3 fatty acids 1,000 mg capsule 1,000 mg PO DAILY 08/08/19 [History Confirmed 01/06/20] vitamin E (dl, acetate) 400 unit capsule 400 unit PO DAILY 08/08/19 [History Confirmed 01/06/20] vitamins A,C,G-ajgl-mzzsic 7,160 unit-113 mg-100 unit tablet 2 tab PO BID 08/08/19 [History Confirmed 01/06/20] [facility] Medical History (Updated 08/08/19 @ 09:[address] De Higgins MD) Nipple discharge, bloody (Acute) Nipple discharge (Acute) Positive colorectal cancer screening using Cologuard test (Acute) Post-menopausal (Acute) Vitamin D deficiency (Acute) Surgical History (Updated 08/08/19 @ 09:10 by Halle Mejias) History of right breast biopsy (Acute) History of right cataract surgery (Acute) S/P colonoscopy (Acute) Family History Brother Hypercholesterolemia Sister Diabetes Hypertension Father Diabetes Hypertension Social History (Updated 01/06/20 @ 13:[address] De Higgins MD) Smoking Status: Never smoker alcohol intake: never substance use type: does not use HPI HPI HPI: ALTAGRACIA MORALES, is a 79 F who presents to the office today for ongoing surgical consultation regarding breast checks. As noted August 08, 2019 when she presented for evaluation patient of right nipple discharge she stated the nipple charge had ceased. We were not able to demonstrate any on that day. She was taking fish oil I asked her to hold that. So she actually has held the fish oil but instead then she started vitamin D. She states that in November she had recurrence of the right nipple discharge. She brings in some tissues that appear to have some old dried blood. She had updated mammograms January 02, 2020 BI-RADS Category 1 My previous notes from August 08, 2019 reflect the following: HPI: ALTAGRACIA MORALES, is a 79 F who presents to the office today for Surgical consultation regarding bloody discharge from the right nipple. The patient is referred by her primary care physician Dr. Mera Hollingsworth and a written compromise surgical consult was recommendations will be returned to her. 79-year-old female. A0. Menarche at age 15. First child was born when she was 30. She did not breast-feed. Family history is negative for breast cancer. She was not on any estrogen replacement. December 2018 she claims that she had bloody discharge from the right nipple lasting 1 week. She then had a long period of no symptoms from the right breast until just recently she again had a one-week incidence of bloody discharge right nipple. There is been no tenderness. No trauma. No history of breast abscess. She does take fish oil. To help evaluate her as noted below she had a right unilateral mammogram and breast ultrasound. Interpretation BI-RADS Category 1 negative. The patient states that her discharge has ceased 01/02/20 [facility] Imaging Services [address] [place] [address] SCREEN MAMM (CAD) W/ALEJANDRA BILAT MR#: [id number] Name: ALTAGRACIA MORALES ARe #:[id number] : 1940F 79 From: Elier King MD PCP:Dr. Mera Hollingsworth, Status:REG CLI Study:SCREEN MAMM (CAD) W/ALEJANDRA BILAT Date of Exam:01/02/20 Exam#[id number] Ordering Dr: Mera Hollingsworth DO MAMMOGRAPHY - BILATERAL SCREENING 3-D TOMOSYNTHESIS REASON FOR EXAM: Female, 79 years old. Routine screening PERTINENT HISTORY: NO FAM HX -- NO SX -- HX BLOODY DISCHARGE RT NIPPLE RT U/S DONE =NEGATIVE -- BILAT KERATOSIS FLAT -NOT MARKED. TECHNIQUE: 2-D mammograms and 3-D Tomosynthesis of the breast (s) were performed. CAD was performed. COMPARISON: 12/31/2018 FINDINGS: The breast composition is composed of scattered fibroglandular density. Scattered benign calcifications are seen. No dense spiculated masses or suspicious microcalcifications are identified. No architectural distortion is identified. There is no skin thickening or retraction. There has been no significant change since the prior study. BI/SCREEN MAMM (CAD) W/ALEJANDRA BILAT IMPRESSION: No mammographic signs of malignancy. Routine yearly mammograms recommended. ASSESSMENT CATEGORY: BIRADS Category 1: Negative. A letter regarding these results will be sent to the patient by the facility within 30 days. FOLLOW UP RECOMMENDATION: Yearly follow up mammogram recommended. (A) Approximately 10% of breast cancers are not detected by mammography. A normal mammogram should not delay biopsy of a clinically suspicious abnormality. Electronically Signed: García King MD at 11:48 EDT , Service support , HPI HPI HPI: ALTAGRACIA MORALES, is a 79 F who presents to the office today for ROS General General: No weight change, appetite, fatigue, colon cancer, breast cancer or weakness HEENT HEENT: No difficulty swallowing, eye injury, eye surgery, swollen glands or hoarseness Endo Endocrine: No thyroid disease, diabetes mellitus, thyroid cancer, Hair loss, heat intolerance or cold intolerance Breast Breast: Yes nipple discharge; no left breast lump, right breast lump, breast pain, abnormal mammogram, abnormal US or breast enlargement Cardio Cardiovascular: No murmur, pacemaker, heart disease, atrial fibrillation, high blood pressure, heart attack, heart stent, palpitations, shortness of breat with exertion or chest pain Resp Respiratory: No shortness of breath, No sleep apnea, No cough, No COPD, No asthma, No emphysema, No wheezing Gastro Gastrointestinal: No abdominal pain, No nausea or vomiting, No diarrhea, No constipation, No blood in stool, No acid reflux, No hemorrhoids, No ulcers, No gallbladder problem, No black,tarry stools Serjio Hematologic: No blood thinners, No blood disorders, No bleeding, No anemia, No blood clots Neuro Neurologic: No weakness Exam Const General: cooperative, healthy appearing, comfortable, no acute distress Nutritional Appearance: average body habitus Orientation: alert, awake [facility] Head: normal to inspection Chest Breast Palpation: Yes nipple discharge Other: Right breast: Obvious bloody discharge central nipple. No focal mass. No axillary or clavicular neuropathy, very slight retraction of the nipple Left breast: Unremarkable lump nipple. No focal mass. No axillary or clavicular adenopathy Resp Effort Inspection: normal respiratory effort Auscultation: clear to auscultation bilaterally Cardio Rate: regular rate Rhythm: regular rhythm Heart Sounds: no murmurs GI Palpation: soft, no hepatosplenomegaly Auscultation: normal bowel sounds Musc Cervical Spine: normal cervical lordosis Skin General: no rashes or lesions noted Neuro Cognition: normal cognition Extrem General: no calf tenderness Psych Affect: normal affect Assessment Plan Problems 1. Nipple discharge, bloody N64.52 Plan Patient has had recurrence of her right nipple discharge. She stopped the fish oil but she started vitamin E. I have asked her to hold both of those. Her recent imaging is unremarkable. I recommend to her that we proceed with a wire ductal exploration right breast with excisional biopsy and I discussed the technique, benefit, risk and alternatives. She has had an opportunity to ask and have questions answered. She is aware to of the Covid-19 pandemic. She is aware that the [facility] is reporting a low local incidence. We will schedule and proceed at her discretion. I appreciate the ongoing opportunity of assisting with her surgical care. Cc: Dr. Mera Higgins M.D., F.A.C.S. Coding Level of Care Code Off vis,est,level 3 Diagnoses Nipple discharge, bloody N64.52 I have re-examined the patient. There are no clinical changes since date of exam. Procedure Criteria Procedure Type: Elective COVID Risk Discussion: The surgeon/proceduralist and patient have discussed in detail the risk of exposure to and/or potential harm posed by the COVID-19 virus with having a surgery/procedure at this time versus the risk of delaying the surgery/procedure. It is not possible to know either the risk of delaying the surgery or procedure or chance of getting an infection with perfect accuracy, but a joint decision was made between the patient and the surgeon/proceduralist to proceed at this time with the scheduled surgery/procedure as indicated on the consent form. 01/15/20905 <Electronically signed by De Higgins MD> Date De Franco Signature: Date (if applicable) CC: Dr. Mera Hollingsworth DO; Dr. De Higgins MD Signed Mera Hollingsworth Start: 01-10-2020 End: 01-13-2020 12 Lead EKG Comments: See Note; NOTES: [facility] Cardiovascular Services [address] [facility] [place] [address] 12 Lead EKG 01/10/20 09 MR#: [id number] Acct: [id number] Name: ALTAGRACIA MORALES Rep #: [id number] : 1940 79 From: Natacha Valadez MD Attending Dr: Dr. De Higgins MD Status: MO E SDC Ordering Dr: De Higgins MD Date: 01/10/20 Location: [facility] Sex: F C Admitted: Test Reason : PREOP Blood Pressure : / mmHG Vent. Rate : 064 BPM Atrial Rate : 064 BPM P-R Int : 184 ms QRS Dur : 094 ms QT Int : 400 ms P-R-T Axes : 073 043 071 degrees QTc Int : 412 ms Sinus rhythm with Premature atrial complexes Otherwise normal ECG Confirmed by DARIO FROST, DORIS ([id number]), book editor FARZANA BISHOP ([id number]) on 01/13/2020 2:05:39 PM Referred By: De Higgins Confirmed By:RJ VALADEZ MD 01/13/20 1405 Date Natacha Valadez MD CC: Dr. Mera Hollingsworth DO; Dr. De Higgins MD Signed De Higgins Work Phone: Start: 01-06-2020 End: 01-06-2020 Surgery Visit Report Comments: See Note; NOTES: [facility] [address] [place] [address] OFFICE VISIT Date of Service: 01/06/20 MR#: [id number] Acct: [id number] Name: ALTAGRACIA MORALES Rep #: [id number] : 1940 Provider: Dr. De sanchez MD Age/Sex: 79/F Location: [facility] Status: Signed Intake Vital Signs 01/06/20 Height 5 ft 3 in 01/06/20 Weight: 174 lb 01/06/20 BMI 30.8 01/06/20 BP 156/81 H 01/06/20 Blood Pressure Location Rt brachial 01/06/20 Position Sitting 01/06/20 Respiration 18 01/06/20 Pulse 80 01/06/20 Pulse Source Monitor 01/06/20 Temp 97.7 F L 01/06/20 Temp Source Temporal 01/06/20 Pulse Oximetry (%) 97 01/06/20 Oxygen Delivery Method room air 01/06/20 BMI 30.5 Intake Visit Reasons: 1 YEAR F/U R BRST, MAMMO 01/02/2020 [facility] Chief Complaint: follow up mammogram/nipple discharge Playground Monitor Required: No Is patient in pain?: No Allergies Penicillins Allergy (Verified 01/06/20 13:00) Rash Medications calcium carbonate 500 mg calcium (1,250 mg) tablet 500 mg PO BID 08/08/19 [History Confirmed 01/06/20] mecobalamin (vitamin B12) 5,000 mcg disintegrating tablet mcg PO 08/08/19 [History Confirmed 01/06/20] multivitamin with minerals 1 tab PO BID tab 08/08/19 [History Confirmed 01/06/20] omega-3 fatty acids 1,000 mg capsule 1,000 mg PO DAILY 08/08/19 [History Confirmed 01/06/20] vitamin E (dl, acetate) 400 unit capsule 400 unit PO DAILY 08/08/19 [History Confirmed 01/06/20] vitamins A,C,F-cxvm-yqlcdv 7,160 unit-113 mg-100 unit tablet 2 tab PO BID 08/08/19 [History Confirmed 01/06/20] [facility] Medical History (Updated 08/08/19 @ 09:[address] De Higgins MD) Nipple discharge, bloody (Acute) Nipple discharge (Acute) Positive colorectal cancer screening using Cologuard test (Acute) Post-menopausal (Acute) Vitamin D deficiency (Acute) Surgical History (Updated 08/08/19 @ 09:10 by Halle Mejias) History of right breast biopsy (Acute) History of right cataract surgery (Acute) S/P colonoscopy (Acute) Family History Brother Hypercholesterolemia Sister Diabetes Hypertension Father Diabetes Hypertension Social History (Updated 01/06/20 @ 13:[address] De Higgins MD) Smoking Status: Never smoker alcohol intake: never substance use type: does not use HPI HPI HPI: ALTAGRACIA MORALES, is a 79 F who presents to the office today for ongoing surgical consultation regarding breast checks. As noted August 08, 2019 when she presented for evaluation patient of right nipple discharge she stated the nipple charge had ceased. We were not able to demonstrate any on that day. She was taking fish oil I asked her to hold that. So she actually has held the fish oil but instead then she started vitamin D. She states that in November she had recurrence of the right nipple discharge. She brings in some tissues that appear to have some old dried blood. She had updated mammograms January 02, 2020 BI-RADS Category 1 My previous notes from August 08, 2019 reflect the following: HPI: ALTAGRACIA MORALES, is a 79 F who presents to the office today for Surgical consultation regarding bloody discharge from the right nipple. The patient is referred by her primary care physician Dr. Mera Hollingsworth and a written compromise surgical consult was recommendations will be returned to her. 79-year-old female. A0. Menarche at age 15. First child was born when she was 30. She did not breast-feed. Family history is negative for breast cancer. She was not on any estrogen replacement. December 2018 she claims that she had bloody discharge from the right nipple lasting 1 week. She then had a long period of no symptoms from the right breast until just recently she again had a one-week incidence of bloody discharge right nipple. There is been no tenderness. No trauma. No history of breast abscess. She does take fish oil. To help evaluate her as noted below she had a right unilateral mammogram and breast ultrasound. Interpretation BI-RADS Category 1 negative. The patient states that her discharge has ceased 01/02/20 [facility] Imaging Services [address] [place] [address] SCREEN MAMM (CAD) W/ALEJANDRA BILAT MR#: [id number] Name: ALTAGRACIA MORALES [facility] #:[id number] : 1940F 79 From: Elier King MD PCP:Dr. Mera Hollingsworth, Status:REG CLI Study:SCREEN MAMM (CAD) W/ALEJANDRA BILAT Date of Exam:01/02/20 Exam#[id number] Ordering Dr: Mera Hollingsworth DO MAMMOGRAPHY - BILATERAL SCREENING 3-D TOMOSYNTHESIS REASON FOR EXAM: Female, 79 years old. Routine screening PERTINENT HISTORY: NO FAM HX -- NO SX -- HX BLOODY DISCHARGE RT NIPPLE RT U/S DONE =NEGATIVE -- BILAT KERATOSIS FLAT -NOT MARKED. TECHNIQUE: 2-D mammograms and 3-D Tomosynthesis of the breast (s) were performed. CAD was performed. COMPARISON: 12/31/2018 FINDINGS: The breast composition is composed of scattered fibroglandular density. Scattered benign calcifications are seen. No dense spiculated masses or suspicious microcalcifications are identified. No architectural distortion is identified. There is no skin thickening or retraction. There has been no significant change since the prior study. BI/SCREEN MAMM (CAD) W/ALEJANDRA BILAT IMPRESSION: No mammographic signs of malignancy. Routine yearly mammograms recommended. ASSESSMENT CATEGORY: BIRADS Category 1: Negative. A letter regarding these results will be sent to the patient by the facility within 30 days. FOLLOW UP RECOMMENDATION: Yearly follow up mammogram recommended. (A) Approximately 10% of breast cancers are not detected by mammography. A normal mammogram should not delay biopsy of a clinically suspicious abnormality. Electronically Signed: García King MD at 11:48 EDT , Service support , HPI HPI HPI: ALTAGRACIA MORALES, is a 79 F who presents to the office today for ROS General General: No weight change, appetite, fatigue, colon cancer, breast cancer or weakness HEENT HEENT: No difficulty swallowing, eye injury, eye surgery, swollen glands or hoarseness Endo Endocrine: No thyroid disease, diabetes mellitus, thyroid cancer, Hair loss, heat intolerance or cold intolerance Breast Breast: Yes nipple discharge; no left breast lump, right breast lump, breast pain, abnormal mammogram, abnormal US or breast enlargement Cardio Cardiovascular: No murmur, pacemaker, heart disease, atrial fibrillation, high blood pressure, heart attack, heart stent, palpitations, shortness of breat with exertion or chest pain Resp Respiratory: No shortness of breath, No sleep apnea, No cough, No COPD, No asthma, No emphysema, No wheezing Gastro Gastrointestinal: No abdominal pain, No nausea or vomiting, No diarrhea, No constipation, No blood in stool, No acid reflux, No hemorrhoids, No ulcers, No gallbladder problem, No black,tarry stools Serjio Hematologic: No blood thinners, No blood disorders, No bleeding, No anemia, No blood clots Neuro Neurologic: No weakness Exam Const General: cooperative, healthy appearing, comfortable, no acute distress Nutritional Appearance: average body habitus Orientation: alert, awake [facility] Head: normal to inspection Chest Breast Palpation: Yes nipple discharge Other: Right breast: Obvious bloody discharge central nipple. No focal mass. No axillary or clavicular neuropathy, very slight retraction of the nipple Left breast: Unremarkable lump nipple. No focal mass. No axillary or clavicular adenopathy Resp Effort Inspection: normal respiratory effort Auscultation: clear to auscultation bilaterally Cardio Rate: regular rate Rhythm: regular rhythm Heart Sounds: no murmurs GI Palpation: soft, no hepatosplenomegaly Auscultation: normal bowel sounds Musc Cervical Spine: normal cervical lordosis Skin General: no rashes or lesions noted Neuro Cognition: normal cognition Extrem General: no calf tenderness Psych Affect: normal affect Assessment Plan Problems 1. Nipple discharge, bloody N64.52 Plan Patient has had recurrence of her right nipple discharge. She stopped the fish oil but she started vitamin E. I have asked her to hold both of those. Her recent imaging is unremarkable. I recommend to her that we proceed with a wire ductal exploration right breast with excisional biopsy and I discussed the technique, benefit, risk and alternatives. She has had an opportunity to ask and have questions answered. She is aware to of the Covid-19 pandemic. She is aware that the [facility] is reporting a low local incidence. We will schedule and proceed at her discretion. I appreciate the ongoing opportunity of assisting with her surgical care. Cc: Dr. Mera Higgins M.D., F.A.C.S. Coding Level of Care Code Off vis,est,level 3 Diagnoses Nipple discharge, bloody N64.52 01/06/20 1323 <Electronically signed by De Higgins MD> Date De Higgins MD Cosigner Signature: Date (if applicable) CC: DO Mera Spicer Start: 01-02-2020 End: 01-02-2020 SCREEN MAMM (CAD) W/ALEJANDRA BILAT Comments: See Note; NOTES: [facility] Imaging Services [address] [place] [id number] SCREEN MAMM (CAD) W/ALEJANDRA BILAT MR#: [id number] Acct: [id number] Name: ALTAGRACIA MORALES Rep #: [id number] : 1940 F 79 From: Elier King MD PCP: Dr. Mera Hollingsworth, DO Status: REG CLI Study: SCREEN MAMM (CAD) W/ALEJANDRA BILAT Date of Exam: 0 01/02/20 Exam# [id number] Ordering Dr: Mera Hollingsworth DO MAMMOGRAPHY - BILATERAL SCREENING 3-D TOMOSYNTHESIS REASON FOR EXAM: Female, 79 years old. Routine screening PERTINENT HISTORY: NO FAM HX -- NO SX -- HX BLOODY DISCHARGE RT NIPPLE RT U/S DONE =NEGATIVE -- BILAT KERATOSIS FLAT -NOT MARKED. TECHNIQUE: 2-D mammograms and 3-D Tomosynthesis of the breast (s) were performed. CAD was performed. COMPARISON: 12/31/2018 FINDINGS: The breast composition is composed of scattered fibroglandular density. Scattered benign calcifications are seen. No dense spiculated masses or suspicious microcalcifications are identified. No architectural distortion is identified. There is no skin thickening or retraction. There has been no significant change since the prior study. BI/SCREEN MAMM (CAD) W/ALEJANDRA BILAT IMPRESSION: No mammographic signs of malignancy. Routine yearly mammograms recommended. ASSESSMENT CATEGORY: BIRADS Category 1: Negative. A letter regarding these results will be sent to the patient by the facility within 30 days. FOLLOW UP RECOMMENDATION: Yearly follow up mammogram recommended. (A) Approximately 10% of breast cancers are not detected by mammography. A normal mammogram should not delay biopsy of a clinically suspicious abnormality. Electronically Signed: García King MD at 11:48 EDT , Service support , CC: Dr. Mera Hollingsworth DO [employer]: Signed Mera Hollingsworth Work Phone: Start: 01-02-2020 End: 01-07-2020 Dexa Bone Density Study Comments: See Note; NOTES: [facility] Imaging Services [address] [place] [address] Dexa Bone Density Study MR#: [id number] Acct: [id number] Name: ALTAGRACIA MORALES Rep #: [id number] : 1940 F 79 From: Carlos Manuel curiel MD PCP: Dr. Mera Hollingsworth DO Status: [facility] Study: Dexa Bone Density Study Date of Exam: 01/02/20 Exam# [id number] Ordering Dr: Mera Hollingsworth DO STUDY: DUAL ENERGY X-RAY ABSORPTIOMETRY / DXA REASON FOR EXAM: Female, 79 years old. 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 COMPARISON: Comparison is made with prior examination dated 03-17-16. FINDINGS: Lumbar Spine (L1-L4): g/cm2 (1.098) / T-score (-0.6) / Z-score (1.2) Findings are suggestive of normal bone density with a low fracture risk. Left Femur Total: g/cm2 (0.937) / T-score (-0.6) / Z-score (1.4) Left Femoral Neck: g/cm2 (0.873) / T-score (-1.2) / Z-score (0.9) Right Femur Total: g/cm2 (0.954) / T-score (-0.4) / Z-score (1.5) Right Femoral Neck: g/cm2 (0.905) / T-score (-1.0) / Z-score (1.1) The T-Scores on the most recent prior examination were: Lumbar Spine (L1-L4): There has been improvement of bone density since the previous examination. Left Femur Total: which represents no significant change. . Right Femur Total: which represents a worsening of 0.3%. BD/Dexa Bone Density Study IMPRESSION: The patient is considered osteopenic as outlined below according to World David Organization (WHO) criteria with a low fracture risk. There has been improvement of bone density since the previous examination. Reference Information: The T-score is the number of standard deviations above or below the standard which is normal for young adults at their peak bone mineral density. The World Health Organization (WHO) interprets the T-scores as follows: Above -1 Normal bone density Between -1 and -2.5 Osteopenia Equal to / or below -2.5 Osteoporosis As a practical clinical guideline, osteopenia may be graded as follows: Mild -1 through -1.5 Moderate -1.6 through -2.0 Severe -2.1 through -2.4 The Z-score is the number of standard deviations above or below age-matched controls. A Z-score of less than -1.5 would be considered abnormal. References: 1. NIH Osteoporosis and Related Bone Diseases http://www.osteo.org 2. International Society for Clinical Densitometry http://www.iscd.org 3. National Osteoporosis Foundation http://www.nof.org Electronically Signed: Carlos Manuel Franco, at 8:43 EDT , Service support , CC: Dr. Mera Hollingsworth, DO [employer]: Signed Mera Hollingsworth Work Phone: Start: 08-08-2019 End: 08-08-2019 Surgery Visit Report Comments: See Note; NOTES: [facility] [address] [place] [address]. [address] [place] [address] OFFICE VISIT Date of Service: 08/08/19 MR#: [id number] Acct: [id number] Name: ALTAGRACIA MORALES Rep #: [id number] : 1940 Provider: De Higgins MD Age/Sex: 79/F Location: [facility] Status: Signed Intake Vital Signs08/08/19 Height 5 ft 3.5 in 08/08/19 Weight: 175 lb 4 oz Intake Visit Reasons: Bloody Discharge R Nipple Chief Complaint: right nipple discharge Playground Monitor Required: No Is patient in pain?: No Allergies Penicillins Allergy (Verified 08/08/19 09:12) Rash Medications alasalep-wrkrmbufh-voqawbziz 3.5 mg-10,000 unit/mL-1 % ear drops,susp 3 drp OTIC (EAR) Q4H 10 Days #10 ml 08/05/19 [Rx Confirmed 08/08/19] calcium carbonate 500 mg calcium (1,250 mg) tablet 500 mg PO BID 08/08/19 [History Confirmed 08/08/19] mecobalamin (vitamin B12) 5,000 mcg disintegrating tablet mcg PO 08/08/19 [History] multivitamin with minerals 1 tab PO BID tab 08/08/19 [History Confirmed 08/08/19] omega-3 fatty acids 1,000 mg capsule 1,000 mg PO DAILY 08/08/19 [History Confirmed 08/08/19] vitamin E (dl, acetate) 400 unit capsule 400 unit PO DAILY 08/08/19 [History Confirmed 08/08/19] vitamins A,C,P-ptwp-cuzcex 7,160 unit-113 mg-100 unit tablet 2 tab PO BID 08/08/19 [History Confirmed 08/08/19] Is last menstrual period known: No Post menopausal: Yes Patient : No PFSH Medical History (Updated 08/08/19 @ 09:[address] De Higgins MD) Nipple discharge, bloody (Acute) Nipple discharge (Acute) Positive colorectal cancer screening using Cologuard test (Acute) Post-menopausal (Acute) Vitamin D deficiency (Acute) Surgical History (Updated 08/08/19 @ 09:10 by Halle Mejias) History of right breast biopsy (Acute) History of right cataract surgery (Acute) S/P colonoscopy (Acute) Family History Brother Hypercholesterolemia Sister Diabetes Hypertension Father Diabetes Hypertension Social History (Updated 08/08/19 @ 09:[address] De Higgins MD) Smoking Status: Never smoker alcohol intake: never substance use type: does not use HPI HPI HPI: ALTAGRACIA MORALES, is a 79 F who presents to the office today for Surgical consultation regarding bloody discharge from the right nipple. The patient is referred by her primary care physician Dr. Mera Hollingsworth and a written compromise surgical consult was recommendations will be returned to her. 79-year-old female. A0. Menarche at age 15. First child was born when she was 30. She did not breast-feed. Family history is negative for breast cancer. She was not on any estrogen replacement. December 2018 she claims that she had bloody discharge from the right nipple lasting 1 week. She then had a long period of no symptoms from the right breast until just recently she again had a one-week incidence of bloody discharge right nipple. There is been no tenderness. No trauma. No history of breast abscess. She does take fish oil. To help evaluate her as noted below she had a right unilateral mammogram and breast ultrasound. Interpretation BI-RADS Category 1 negative. The patient states that her discharge has ceased Diagnostic [facility] Imaging Services [address] [place] [address] DIAG MAMM W/CAD, BILAT MR#: [id number]:[id number] Name: ALTAGRACIA MORALES [facility] #:[id number] : 1940F 78 From: Elier King MD PCP:Mera Hollingsworth DO Status:REG CLI Study:DIAG MAMM W/CAD, BILAT Date of Exam:12/31/18 Exam#[id number] Ordering Dr: Altagracia Morrell [employer]-C MAMMOGRAPHY - BILATERAL DIAGNOSTIC REASON FOR EXAM: Female, 78 years old. Nipple discharge PERTINENT HISTORY: Non-contributory. TECHNIQUE: Digital examination. Mediolateral oblique (MLO) and craniocaudad (CC) views of both breasts were obtained, along with 3-D alejandra synthesis. CAD: CAD was performed on this study. COMPARISON: 08/19/2017 FINDINGS: Breast Composition: There are scattered areas of fibroglandular density. There is asymmetric retroareolar density in the right breast which needs further evaluation with ultrasound. No other significant abnormalities are identified. BI/DIAG MAMM W/CAD, BILAT IMPRESSION: Further ultrasonographic evaluation recommended, as described above. ASSESSMENT CATEGORY: BIRADS Category 0: Incomplete. Need additional imaging evaluation. A letter regarding these results will be sent to the patient by the facility within 30 days. FOLLOW UP RECOMMENDATION: Ultrasound Recommended. (I) Approximately 10% of breast cancers are not detected by mammography. A normal mammogram should not delay biopsy of a clinically suspicious abnormality. Electronically Signed: García King MD at 14:39 EDT , Service support , [facility] [place] [address] Breast Limited Unilateral MR#: [id number]:[id number] Name: ATLAGRACIA MORALES [facility] #:[id number] : 1940F 78 From: Elier King MD PCP:Mera Hollingsworth DO Status:REG CLI Study:Breast Limited Unilateral Date of Exam:12/31/18 Exam#[id number] Ordering Dr: Altagracia Morrell [employer]-C STUDY: ULTRASOUND BREAST - RIGHT REASON FOR EXAM: Female, 78 years old. Nipple discharge TECHNIQUE: Axial and longitudinal images of the RIGHT breast were performed with a high resolution ultrasound transducer. COMPARISON: None. FINDINGS: RIGHT Breast: Ultrasound evaluation of the retroareolar region of the right breast shows only normal dense fibroglandular tissue. There is no suspicious solid or cystic mass, architectural distortion, or shadowing calcifications. US/Breast Limited Unilateral IMPRESSION: No suspicious sonographic findings ASSESSMENT CATEGORY: BIRADS Category 1: Negative. A letter regarding these results will be sent to the patient by the facility within 30 days. Electronically Signed: García King MD at 15:10 EDT , Service support , HPI HPI HPI: ALTAGRACIA MORALES, is a 79 F who presents to the office today for ROS General General: No weight change, appetite, fatigue, colon cancer, breast cancer or weakness HEENT HEENT: No difficulty swallowing, eye injury, eye surgery, swollen glands or hoarseness Endo Endocrine: No thyroid disease, diabetes mellitus, thyroid cancer, Hair loss, heat intolerance or cold intolerance Breast Breast: Yes nipple discharge; no left breast lump, right breast lump, breast pain, abnormal mammogram, abnormal US or breast enlargement Cardio Cardiovascular: No murmur, pacemaker, heart disease, atrial fibrillation, high blood pressure, heart attack, heart stent, palpitations, shortness of breat with exertion or chest pain Resp Respiratory: No shortness of breath, No sleep apnea, No cough, No COPD, No asthma, No emphysema, No wheezing Gastro Gastrointestinal: No abdominal pain, No nausea or vomiting, No diarrhea, No constipation, No blood in stool, No acid reflux, No hemorrhoids, No ulcers, No gallbladder problem, No black,tarry stools Serjio Hematologic: No blood thinners, No blood disorders, No bleeding, No anemia, No blood clots Neuro Neurologic: No weakness Exam Chest Breast Palpation: Yes nipple discharge Other: Right breast: Very slightly retracted right nipple according to the patient chronic for several years. No focal mass. No tenderness. No axillary or clavicular adenopathy. Despite multiple attempts no expressible discharge nor obvious site of discharge from the right nipple Left breast no focal mass. No nipple discharge. No axillary or clavicular adenopathy Cardio Heart Sounds: no murmurs Assessment AND Plan Problems 1. Nipple discharge, bloody N64.52 Plan My initial impression was as I was not able to ambulate the bloody discharge in the patient is on fish oil that this might be contributory. Without obvious site of involvement would be difficult to casey this. Ultrasound does not demonstrate a focal finding. After further review I will consider offering the patient attempt at a stereotactic needle core biopsy of the vague right retroareolar density. Although I cannot definitively correlate this item with her symptoms. She has had an opportunity to ask and have questions answered. We will schedule and proceed at her discretion. Cc: Dr. Mera Higgins M.D., F.A.C.S. Coding Level of Care Code 62785 Diagnoses Nipple discharge, bloody N64.52 08/08/19 0957 <Electronically signed by De Higgins MD> Date De Franco Signature: Date (if applicable) CC: Mera Raya Start: 08-05-2019 End: 08-05-2019 Urgent Care Visit Report Comments: See Note; NOTES: [facility] [address] [place] [address] [address] [place] [address] OFFICE VISIT Date of Service: 08/05/19 MR#: [id number] Acct: [id number] Name: ALTAGRACIA MORALES Rep #: [id number] : 1940 Provider: Mitchel FAUSTIN Age/Sex: 79/F Location: [facility] Status: Signed Intake Vital Signs08/05/19 Height 5 ft 4 in 08/05/19 Weight: 174 lb 08/05/19 BMI 29.8 08/05/19 BP 142/82 H Intake Visit Reasons: RT EAR CLOGGED/ EAR ACHE Chief Complaint: Right ear pain Allergies Penicillins Allergy (Verified 08/05/19 13:26) Rash Medications pdpdchkk-dmbsxphen-gqrbzyspp 3.5 mg-10,000 unit/mL-1 % ear drops,susp 3 drp OTIC (EAR) Q4H 10 Days #10 ml 08/05/19 [Rx Confirmed 08/05/19] PFSH Medical History Positive colorectal cancer screening using Cologuard test (Acute) Post-menopausal (Acute) Vitamin D deficiency (Acute) Surgical History History of right cataract surgery (Acute) S/P colonoscopy (Acute) Family History Brother Hypercholesterolemia Sister Diabetes Hypertension Father Diabetes Hypertension Social History (Updated 08/05/19 @ 13:56 by RAMIN Olmos) Smoking Status: Never smoker alcohol intake: never substance use type: does not use HPI HPI Chief Complaint: Right ear pain Details: ALTAGRACIA MORALES, is a 79 F who presents to the office today for complaint of right ear pain for the past 2 days. Patient denies any otorrhea or hearing change/loss. No fever, chills, sweats. No nausea, vomiting, diarrhea. She has not taken any medications for his current episode. No other associated symptoms or alleviating/aggravating factors. ROS Const Constitutional: Positive for other (6 system ROS completed with pertinent findings in the HPI otherwise normal.) Exam Const General: cooperative, healthy appearing HENAL Head: normocephalic, atraumatic Ears: hearing grossly normal bilaterally, TM's normal bilaterally, EAC abnormal erythema on the right, edema on the right and EAC tenderness on the right Nose: external nose normal Face and sinus: normal facial exam, face symmetric Mouth: oral mucosae normal Throat: posterior oropharynx normal Resp Effort AND Inspection: normal respiratory effort Auscultation: Bilateral: Clear to Auscultation Cardio Palpation: normal PMI Rate: regular rate Rhythm: regular rhythm Skin General: no rashes or lesions noted Neuro General: alert, CN's II-XI intact bilaterally Psych Appearance: grossly normal Mental Status: mental status grossly normal Assessment AND Plan Problems 1. Acute diffuse otitis externa of right ear H60.311 Status Acute Plan Polytrim as prescribed today. Encouraged to get plenty of rest, drink lots of clear liquids, and use Tylenol or Ibuprofen (unless contraindicated) for fever and comfort. Patient also educated on other symptomatic management techniques. To be seen in 7-10 days if no improvement; sooner if worsening of symptoms. Patient advised of potential red flags and when appropriate to report to the ED. Patient verbalized understanding and agreement with all the above. Medications New: xbomurwn-vbquyvkpp-FT 3.5-10,000-1 mg/mL-unit/mL-%3 drps otic (ear) Q4H 10 days 10 mL 0RF apply to (cotton) wick; replace wick every 24 hours Coding Level of Care Code Off vis,new,level 3 Diagnoses Acute diffuse otitis externa of right ear H60.311 Otitis externa type: diffuse Chronicity: acute Laterality: right 08/05/19 7566 <Electronically signed by Mitchel FAUSTIN> Date Mitchel Franco Signature: Date (if applicable) CC: Mera Hollingsworth Start: 12-31-2018 End: 12-31-2018 Breast Limited Unilateral Comments: See Note; NOTES: [facility] Imaging Services [address] [place] [address] Breast Limited Unilateral MR#: [id number] Acct: [id number] Name: ALTAGRACIA MORALES Rep #: [id number] : 1940 F 78 From: Elier King MD PCP: Mera Hollingsworth DO Status: REG CLI Study: Breast Limited Unilateral Date of Exam: 12/31/18 Exam# [id number] Ordering Dr: Altagracia Morrell [employer]-C STUDY: ULTRASOUND BREAST - RIGHT REASON FOR EXAM: Female, 78 years old. Nipple discharge TECHNIQUE: Axial and longitudinal images of the RIGHT breast were performed with a high resolution ultrasound transducer. COMPARISON: None. FINDINGS: RIGHT Breast: Ultrasound evaluation of the retroareolar region of the right breast shows only normal dense fibroglandular tissue. There is no suspicious solid or cystic mass, architectural distortion, or shadowing calcifications. US/Breast Limited Unilateral IMPRESSION: No suspicious sonographic findings ASSESSMENT CATEGORY: BIRADS Category 1: Negative. A letter regarding these results will be sent to the patient by the facility within 30 days. Electronically Signed: García King MD at 15:10 EDT , Service support , CC: PEDRO Morrell; Mera Hollingsworth DO [employer]: Signed Altagracia Morrell Work Phone: Start: 12-31-2018 End: 01-03-2019 DIAG MAMM W/CAD, BILAT Comments: See Note; NOTES: [facility] Imaging Services [address] [place] [address] DIAG MAMM W/CAD, BILAT MR#: [id number] Acct: [id number] Name: ALTAGRACIA MORALES Rep #: [id number] : 1940 F 78 From: Elier King MD PCP: Mera Hollingsworth DO Status: REG CLI Study: DIAG MAMM W/CAD, BILAT Date of Exam: 12/31/18 Exam# [id number] Ordering Dr: Altagracia Morrell [employer]-C MAMMOGRAPHY - BILATERAL DIAGNOSTIC REASON FOR EXAM: Female, 78 years old. Nipple discharge PERTINENT HISTORY: Non-contributory. TECHNIQUE: Digital examination. Mediolateral oblique (MLO) and craniocaudad (CC) views of both breasts were obtained, along with 3-D alejandra synthesis. CAD: CAD was performed on this study. COMPARISON: 08/19/2017 FINDINGS: Breast Composition: There are scattered areas of fibroglandular density. There is asymmetric retroareolar density in the right breast which needs further evaluation with ultrasound. No other significant abnormalities are identified. BI/DIAG MAMM W/CAD, BILAT IMPRESSION: Further ultrasonographic evaluation recommended, as described above. ASSESSMENT CATEGORY: BIRADS Category 0: Incomplete. Need additional imaging evaluation. A letter regarding these results will be sent to the patient by the facility within 30 days. FOLLOW UP RECOMMENDATION: Ultrasound Recommended. (I) Approximately 10% of breast cancers are not detected by mammography. A normal mammogram should not delay biopsy of a clinically suspicious abnormality. Electronically Signed: García King MD at 14:39 EDT , Service support , CC: PEDRO Morrell; Mera Hollingsworth DO [employer]: Signed Altagracia Morrell Work Phone: Start: 04-16-2018 End: 04-16-2018 Office Visit Report Comments: See Note; NOTES: [facility] [address] [place] [address] OFFICE VISIT Date of Service: 03/12/18 MR#: [id number] Acct: [id number] Patient: ALTAGRACIA MORALES Rep #: [id number] : 1940 Provider: Yasmine Palacios Age/Sex: 78/F Location: [facility] Status: Signed Intake Vital Signs03/12/18 Temperature 98.6 F 03/12/18 Temperature Source Temporal Artery Intake Visit Reasons: FLU SHOT Chief Complaint: positive cologard Allergies Penicillins Allergy (Verified 09/25/17 13:05) Rash Medications calcium carbonate 600 mg (1,500 mg)-vitamin D3 400 unit tablet 1 tab PO QDAY 08/28/17 [History Confirmed 09/25/17] cholecalciferol (vitamin D3) 1,000 unit capsule 2,000 unit PO QDAY cap 08/28/17 [History Confirmed 09/25/17] multivitamin tablet 1 tab PO QDAY 08/28/17 [History Confirmed 09/25/17] omega-3 fatty acids-fish oil 300 mg-1,000 mg capsule 1 cap PO QDAY cap 08/28/17 [History Confirmed 09/25/17] vitamin B complex tablet 1 tab PO QWEEK 08/28/17 [History Confirmed 09/25/17] Office Meds Fluad 65yr up(PF)45 mcg(15 mcgx3)/0.5 mL intramuscular syringe Performing Provider: RAMIN Cortez Administered by: Yasmine Palacios on 03/12/18 13:30 Dose Route Admin Location Lot Number Expiration Date NDC Manager Fraud 0.5 mL IM R deltoid [id number] 10/09/18 05232-975-05 [employer] Assessment AND Plan Orders Orders: Medications Discontinued: Fluad 65yr up(PF)45 mcg(15 mcgx3)/0.5 mL intramus0.5 mL IM ONCE 0.5 mL 0RF NS Z23 cular syringe ( vac 2017 [id number](PF)) Discont inued Reason: Office Medication has been Documented as opal kalyneden 04/16/18 1336 <Electronically signed by Michelet FAUSTIN> Date Michelet FAUSTIN Cosigner Signature: Date (if applicable) CC: Mera Lilia Start: 09-25-2017 End: 09-25-2017 Surgery Visit Report Comments: See Note; NOTES: [facility] [address] [place] [address] OFFICE VISIT Date of Service: 09/25/17 MR#: [id number] Acct: [id number] Name: ALTAGRACIA MORALES Rep #: [id number] : 1940 Provider: Jovanny Kate MD Age/Sex: 77/F Location: [facility] Status: Signed Intake Vital Signs09/25/17 Blood Pressure 147/79 09/25/17 Blood Pressure Location Lt brachial Intake Visit Reasons: F/U C-Scope Chief Complaint: positive cologard Playground Monitor Required: No Is patient in pain?: No Allergies Penicillins Allergy (Verified 09/25/17 13:05) Rash Medications calcium carbonate 600 mg (1,500 mg)-vitamin D3 400 unit tablet 1 tab PO QDAY 08/28/17 [History Confirmed 09/25/17] cholecalciferol (vitamin D3) 1,000 unit capsule 2,000 unit PO QDAY cap 08/28/17 [History Confirmed 09/25/17] multivitamin tablet 1 tab PO QDAY 08/28/17 [History Confirmed 09/25/17] omega-3 fatty acids-fish oil 300 mg-1,000 mg capsule 1 cap PO QDAY cap 08/28/17 [History Confirmed 09/25/17] vitamin B complex tablet 1 tab PO QWEEK 08/28/17 [History Confirmed 09/25/17] PFSH Medical History Positive colorectal cancer screening using Cologuard test (Acute) Post-menopausal (Acute) Vitamin D deficiency (Acute) Surgical History History of right cataract surgery (Acute) S/P colonoscopy (Acute) Family History Brother Hypercholesterolemia Sister Diabetes Hypertension Father Diabetes Hypertension Social History Smoking Status: Never smoker alcohol intake: never substance use type: does not use HPI HPI HPI: ALTAGRACIA MORALES, is a 77 F who presents to the office today for postop from a colonoscopy. Patient underwent a colonoscopy on 09/13/2017. She was noted to have a large polyp the long stalk in the sigmoid colon. She had some active bleeding from this were had to inject epinephrine and actually placed 3 clips in the area to achieve hemostasis. I admitted her overnight for observation and she subsequently was discharged the following morning. She has been having normal bowel movements she is not complaining of any abdominal pain. The pathology report came back as a tubular adenoma. Exam GI Other: Her abdomen is soft and nontender Assessment AND Plan Problems 1. Adenomatous polyp of sigmoid colon D12.5 Plan Patient will need to have another colonoscopy in 3 years. Coding Level of Care Code Off vis,est,level 2 Diagnoses Adenomatous polyp of sigmoid colon D12.5 Colon polyp type: adenomatous Colon location: sigmoid 09/25/17 1406 <Electronically signed by Jovanny Kate MD> Date Jovanny Kate MD Cosigner Signature: Date (if applicable) CC: Mera Leslieeen Lilia Start: 09-15-2017 End: 09-15-2017 Operative Report Comments: See Note; NOTES: [facility] Medical Records Department [address] [place] [address] Operative Report 09/13/1729 MR#: [id number] Acct: [id number] Name: ALTAGRACIA MORALES Rep #: [id number] : 1940 77 From: Jovanny Kate MD PCP: Mera Hollingsworth DO Status: DEP [facility] Y Location: EN Problem List (1) Positive colorectal cancer screening using Cologuard test Status: Acute Report of Operation Date of Procedure: 09/13/17 Pre-Operative Diagnosis: r19.5 positive colorectal cancer screening using colon guard test Post-Operative Diagnosis: Same Surgery/Procedure Performed:: Colonoscopy with polypectomy with injection of epinephrine and placement of clips for hemostasis. Type of Anesthesia:: MAC Anesthesiologist: Garry Barillas Description of Procedure: Into the operating room and placed in the left lateral decubitus position. She was given graded anesthesia. The scope was inserted into the rectum and directed through the sigmoid colon, descending colon, transverse colon, ascending colon, to the cecum. Operative findings: 1. Cecum: Normal appearance no mass lesions normal ileocecal valve. 2. Ascending colon: Normal appearance no mass lesions. 3. Transverse colon: Normal appearance no mass lesions. 4. Descending colon: Normal appearance no mass lesions. 5. Sigmoid colon: Large polyp on a long stalk was identified I remove this with snare cautery technique I had bleeding at the base in which I had to inject epinephrine approximately 3 cc and I placed 3 clips on this area to achieve hemostasis. I probably lost close to 50 cc of blood during this part of the procedure. The polyp was retrieved and sent to pathology for permanent sectioning 6. Rectum: Normal appearance no mass lesions. Patient will more likely need to have another colonoscopy between 1 and 3 years depending on the path report. I am going to keep the patient overnight secondary to the bleeding that we encountered to make sure that we have no further blood loss. - Admit VTE Documentation VTE Present on Admission: No VTE Mechan Device Prophylaxis: None VTE Pharm Prophylaxis ordered?: No Reason prophylaxis not ordered:: Treatment Not Indicated 09/15/1740 <Electronically signed by Jovanny Kate MD> Date Jovanny Kate MD CC: Jovanny Kate MD; Mera Hollingsworth DO Signed Mera Hollingsworth Start: 09-14-2017 End: 09-14-2017 Discharge Instruction Comments: See Note; NOTES: [facility] Medical Records Department [address] [place] [address] Instructions for Home/Discharge Instructions 09/14/17708 MR#: [id number] Acct: [id number] Name: ALTAGRACIA MORALES Rep #: [id number] : 1940 77 From: Huong Salazar PA-C PCP: Mera Hollingsworth DO Status: REG [facility] Discharge Diet: No Restrictions Discharge Activity: Return to Normal Activity Call your doctor if your incision/area has: - - Bleeding from the rectum Allergies/Adverse Reactions: Allergies Penicillins Allergy (Verified 09/06/17 15:47) Rash Medications to take at Discharge calcium carbonate 600 mg (1,500 mg)-vitamin D3 400 unit tablet 1 tab PO QDAY 08/28/17 cholecalciferol (vitamin D3) 1,000 unit capsule 2,000 unit PO QDAY cap 08/28/17 multivitamin tablet 1 tab PO QDAY 08/28/17 omega-3 fatty acids-fish oil 300 mg-1,000 mg capsule 1 cap PO QDAY cap 08/28/17 vitamin B complex tablet 1 tab PO QWEEK 08/28/17 Primary Care Physician: Mera Hollingsworth DO [Primary Care Provider] - Please Follow Up With: Jovanny Kate MD - [phone] When: 1 week at [facility] 2nd floor Proposed Discharge Date: 09/14/17 09/14/17709 <Electronically signed by Huong Salazar PA-C> Date Huong Salazar PA-C CC: Mera Raya Start: 09-13-2017 End: 09-14-2017 Abdomen Single View Comments: See Note; NOTES: [facility] Imaging Services [address] [place] [address] Abdomen Single View MR#: [id number] Acct: [id number] Name: ALTAGRACIA MORALES Rep #: [id number] : 1940 F 77 From: Carlos Manuel Franco MD PCP: Mera Hollingsworth DO Status: [facility] Study: Abdomen Single View Date of Exam: 09/13/17 Exam# [id number] Ordering Dr: Jovanny Kate MD STUDY: X-RAY - ABDOMEN/PELVIS REASON FOR EXAM: Female, 77 years old. Abdominal distention following a colonoscopy. TECHNIQUE: AP supine and upright views of the abdomen and pelvis. COMPARISON: None. FINDINGS: Normal visualized lung bases. Mild gaseous distention of the colon with her mild residual fecal material. There is no demonstrated free abdominal air. The visualized liver, spleen and kidneys are grossly normal in size and morphology. Normal soft tissue structures. Normal visualized osseous structures. RAD/Abdomen Single View IMPRESSION: Gas filled colon in keeping with recent colonoscopy. Electronically Signed: Carlos Manuel Franco MD at 10:39 EDT Tel [phone], Service support , CC: Jovanny Kate MD; Mera Hollingsworth DO [employer]: Signed Mera Hollingsworth Start: 08-28-2017 End: 08-28-2017 Surgery Visit Report Comments: See Note; NOTES: [facility] [address] [place] [address] [address] [place] [id number] OFFICE VISIT Date of Service: 08/28/17 MR#: [id number] Acct: [id number] Name: ALTAGRACIA MORALES Rep #: [id number] : 1940 Provider: Jovanny Kate MD Age/Sex: 77/F Location: [facility] Status: Signed Intake Vital Signs08/28/17 Height 5 ft 3 in 08/28/17 Weight: 165 lb 2 oz 08/28/17 Body Mass Index (BMI) 29.2 08/28/17 Blood Pressure 148/80 Intake Visit Reasons: C-Scope Screening (positive cologaurd test) Chief Complaint: positive cologard Playground Monitor Required: No Is patient in pain?: No Allergies Penicillins Allergy (Verified 08/28/17 13:42) Rash Medications calcium carbonate 600 mg (1,500 mg)-vitamin D3 400 unit tablet 1 tab PO QDAY 08/28/17 [History Confirmed 08/28/17] cholecalciferol (vitamin D3) 1,000 unit capsule 2,000 unit PO QDAY cap 08/28/17 [History Confirmed 08/28/17] meloxicam 7.5 mg tablet 7.5 mg PO QDAY 08/28/17 [History Confirmed 08/28/17] multivitamin tablet 1 tab PO QDAY 08/28/17 [History Confirmed 08/28/17] omega-3 fatty acids-fish oil 300 mg-1,000 mg capsule 1 cap PO QDAY cap 08/28/17 [History Confirmed 08/28/17] vitamin B complex tablet 1 tab PO QDAY 08/28/17 [History Confirmed 08/28/17] Is last menstrual period known: No Post menopausal: Yes Patient : No PFSH Medical History Positive colorectal cancer screening using Cologuard test (Acute) Post-menopausal (Acute) Vitamin D deficiency (Acute) Surgical History History of right cataract surgery (Acute) S/P colonoscopy (Acute) Family History Brother Hypercholesterolemia Sister Diabetes Hypertension Father Diabetes Hypertension Social History Smoking Status: Never smoker alcohol intake: never substance use type: does not use HPI HPI HPI: ALTAGRACIA MORALES, is a 77 F who presents to the office today for colonoscopy. Patient had a cold guard test that came back as abnormal. Her last colonoscopy was in September [address] Escobedo but she is unsure of the results at that time. She is not complaining of any abdominal pain she is not complaining of any rectal bleeding. She is tolerating a diet without difficulty. And she is moving her bowels on a normal basis without difficulty. ROS General General: No weight change, appetite, fatigue, colon cancer, breast cancer or weakness HEENT HEENT: Yes eye surgery; no difficulty swallowing, eye injury, swollen glands or hoarseness Endo Endocrine: No thyroid disease, diabetes mellitus, thyroid cancer, Hair loss, heat intolerance or cold intolerance Skin Skin: No rash or changing moles Breast Breast: No left breast lump, right breast lump, nipple discharge, breast pain, abnormal mammogram, abnormal US or breast enlargement Musc Musculoskeletal: No back problems, arthritis, rheumatoid arthritis, gout or joint pain Cardio Cardiovascular: No murmur, pacemaker, heart disease, atrial fibrillation, high blood pressure, heart attack, heart stent, palpitations, shortness of breat with exertion or chest pain Psych Psychiatric: No depression, anxiety or hearing voices Resp Respiratory: No shortness of breath, No sleep apnea, No cough, No COPD, No asthma, No emphysema, No wheezing Gastro Gastrointestinal: No abdominal pain, No nausea or vomiting, No diarrhea, No constipation, No blood in stool, No acid reflux, No hemorrhoids, No ulcers, No gallbladder problem, No black,tarry stools Serjio Hematologic: No blood thinners, No blood disorders, No bleeding, No anemia, No blood clots Neuro Neurologic: No system reviewed and no additional complaints, except as docu, No as per HPI, No abnormal walking, No abnormal hearing, No abnormal movements, No abnormal speech, No behavioral changes, No burning sensations, No confusion, No seizure-like activity, No unsteadiness, No dizziness, No localized weakness, No frequent falls, No headache(s), No lack of coordination, No loss of vision, No memory loss, No numbness, No other visual disturbances, No radiating pain, No restless legs, No sensory deficit, No fainting, No tingling, No tremor(s), No weakness, No other Exam Const General: well developed, no acute distress, well hydrated Orientation: oriented to person, oriented to place, oriented to time [facility] Head: normocephalic, atraumatic Ears: external ears normal Mouth: moist mucous membranes Eyes Sclera: sclerae normal Pupils: normal by confrontation Neck Neck: no lymphadenopathy noted Neck mass: No Thyroid: symmetrical, thyroid normal Chest Chest palpation AND inspection: normal inspection of the chest Breast Palpation: No nipple discharge Resp Effort AND Inspection: normal respiratory effort Auscultation: clear to auscultation bilaterally Percussion: percussion normal Cardio Rate: regular rate Rhythm: regular rhythm Heart Sounds: no murmurs GI Palpation: soft, no masses, no hepatosplenomegaly, nontender Rectal Exam: other Other: Rectal exam deferred. Extrem General: no clubbing, cyanosis or edema, normal to inspection Assessment AND Plan Problems 1. Positive colorectal cancer screening using Cologuard test R19.5 2. Other fecal abnormalities R19.5 Plan I have discussed the above with the patient. I have offered the patient colonoscopy for evaluation. I have explained the risks/benefits of the procedure and described the procedure. I have discussed the risks with the patient, including but not limited to: infection, bleeding, perforation of the GI tract requiring emergency surgery, inability to complete the procedure, injury to any internal organs, complications of anesthesia, etc. - the patient understands and agrees to proceed. I have answered all the patient's questions to the patient's satisfaction and the patient has no further questions. The patient has been given instructions for the colon cleansing preparation. Medications Discontinued: hydrocodone-acetaminophen 5-325 mg Discontinued Reason: Ord1 tab PO Q4H PRN PRN Pain er Completed Coding Level of Care Code Off vis,new,level 3 Diagnoses Positive colorectal cancer screening using Cologuard test R19.5 Other fecal abnormalities R19.5 08/28/17 1351 <Electronically signed by Jovanny Kate MD> Date Jovanny Kate MD Cosigner Signature: Date (if applicable) CC: Mera Raya Start: 08-19-2017 End: 08-23-2017 SCREENING MAMM (CAD), BILAT Comments: See Note; NOTES: [facility] Imaging Services [address] [place] [address] SCREENING MAMM (CAD), BILAT MR#: [id number] Acct: [id number] Name: ALTAGRACIA MORALES Rep #: [id number] : 1940 F 77 From: Carlos Manuel Franco MD PCP: Mera Hollingsworth DO Status: REG CLI Study: SCREENING MAMM (CAD), BILAT Date of Exam: 08/19/17 Exam# [id number] Ordering Dr: Mera Hollingsworth DO MAMMOGRAPHY - BILATERAL SCREENING REASON FOR EXAM: Female, 77 years old. Routine annual screening examination. PERTINENT HISTORY: Non-contributory. TECHNIQUE: Digital bilateral breast alejandra (3D mammographic acquisition) in the CC and MLO projections. 2-D mediolateral oblique (MLO) and craniocaudad (CC) views of both breasts were obtained. CAD: Full Field Digital Mammography with Computer Added Detection was performed. COMPARISON: Comparison is made with prior outside examination dated October 13, 2015. FINDINGS: Breast Composition: There are scattered areas of fibroglandular density. There are no dominant masses or suspicious calcifications. Stable benign-appearing bilateral axillary lymph nodes. No other significant abnormalities are identified. There has been no significant change since the prior study. HPBI/SCREENING MAMM (CAD), BILAT IMPRESSION: Stable bilateral screening mammogram. Yearly follow-up mammogram recommended. (A) ASSESSMENT CATEGORY: BIRADS Category 2: Benign. A letter regarding these results will be sent to the patient by the facility within 30 days. Approximately 10% of breast cancers are not detected by mammography. A normal mammogram should not delay biopsy of a clinically suspicious abnormality. [id number] Electronically Signed: Carlos Manuel Franco MD at 8:28 EDT Tel [phone], Service support , CC: Mera Hollingsworth DO [employer]: Signed Mera Hollingsworth Work Phone: Start: 03-17-2016 End: 03-17-2016 PT D/C of Non Returning Pt (1) Comments: See Note; NOTES: [facility] [address] [place], [place] [id number] Fax REHABILITATION SERVICES DISCHARGE SUMMARY MR#: [id number] Acct: [id number] Name: ALTAGRACIA MORALES Rep #: [id number] : 1940 76 From: Rm Ramos PT, ATC Referring Dr.: Altagracia Morrell Status: REG RCR Insurance: MEDICARE PART A B CIGNA HP - Discharge Summary (1) - Patient Information ALTAGRACIA MORALES was seen in my office for initial evaluation on 03/07/16. The following Plan of Care was established for this patient: Initial Frequency: 1x/Week Initial Duration: 1 Week - Anticipated Interventions Patient/Client Instruction: Educate patient on: Condition, Plan of Care For the Purpose of:: To improve self management Therapeutic Exercise to Include: Flexibilty training For the Purpose of:: To decrease pain, To improve muscle performance and motor function Ultrasound (thermal/non thermal): Yes For the Purpose of:: To decrease pain This patient was last seen in our office 03/07/16. Pertinent comments regarding their Physical therapy will appear below: Pt phoned the clinic on the date of 03/17/16 to report she is I with HEP and painfree. Pt reports she doesnt need anymore PT. Pt is now discharged. At this point I will be discontinuing this patient from physical therapy. I would be happy to see this patient again in the future if found appropriate by the physician. Thank you! Rm Ramos, PT, <Electronically signed by Rm Ramos PT, ATC> 03/17/16 1233 CC: Altagracia Morrell; Mera Hollingsworth DO [facility] Signed Mera Hollingsworth Start: 03-17-2016 End: 03-17-2016 Dexa Bone Density Study (HP) Comments: See Note; NOTES: [facility] Imaging Services [address] [place] [address] Verdana 4d Dexa Bone Density Study (HP) MR#: [id number] Acct: [id number] Name: ALTAGRACIA MORALES Rep #: [id number] : 1940 F 76 From: Carlos Manuel Franco MD PCP: Mera Hollingsworth DO Status: REG CLI Study: Dexa Bone Density Study (HP) Date of Exam: 03/17/16 Exam# [id number] Ordering Dr: Mera Hollingsworth DO STUDY: DUAL ENERGY X-RAY ABSORPTIOMETRY / DXA REASON FOR EXAM: Female, 76 years old. The patient is postmenopausal. Loss of height. TECHNIQUE: Bone Mineral Density (BMD) measurements of lumbar spine and bilateral hips were obtained. COMPARISON: Comparison is made with prior study dated May 11, 2004. FINDINGS: Lumbar Spine (L1-L4): g/cm2 (1.110) / T-score (-0.6) / Z-score (1.2) Findings are suggestive of normal bone density with a low fracture risk. Left Femur Total: g/cm2 (0.937) / T-score (-0.6) / Z-score (1.2) Left Femoral Neck: g/cm2 (0.851) / T-score (-1.3) / Z-score (0.6) Right Femur Total: g/cm2 (0.957) / T-score (-0.4) / Z-score (1.3) Right Femoral Neck: g/cm2 (0.890) / T-score (-1.1) / Z-score (0.9) The T-Scores on the most recent prior examination were: Lumbar Spine (L1-L4): There has been improvement of bone density since the previous examination. Right Femur Total: which represents a worsening of 5.2%. HPBD/Dexa Bone Density Study (HP) IMPRESSION: The patient is considered osteopenic at the level of the femoral neck as outlined below according to World David Organization (WHO) criteria with a low fracture risk. There has been worsening of bone density since the previous examination. Reference Information: The T-score is the number of standard deviations above or below the standard which is normal for young adults at their peak bone mineral density. The World Health Organization (WHO) interprets the T-scores as follows: Above -1 Normal bone density Between -1 and -2.5 Osteopenia Equal to / or below -2.5 Osteoporosis As a practical clinical guideline, osteopenia may be graded as follows: Mild -1 through -1.5 Moderate -1.6 through -2.0 Severe -2.1 through -2.4 The Z-score is the number of standard deviations above or below age-matched controls. A Z-score of less than -1.5 would be considered abnormal. References: 1. NIH Osteoporosis and Related Bone Diseases http://www.osteo.org 2. International Society for Clinical Densitometry http://www.iscd.org 3. National Osteoporosis Foundation http://www.nof.org Electronically Signed: Carlos Manuel Franco MD at 12:44 EDT Tel [phone], Service support [phone], CC: Mera Hollingsworth DO [employer]: Signed Mera Hollingsworth Work Phone: Start: 03-07-2016 End: 03-07-2016 Inital Evaluation (1) - PT Comments: See Note; NOTES: [facility] [address] [place] [address]. [address] [place] [address] Fax REHABILITATION SERVICES INITIAL EVALUATION MR#: [id number] Acct: [id number] Name: ALTAGRACIA MORALES Rep #: [id number] : 1940 76 From: Rm Ramos PT, ATC Referring Dr.: Altagracia Morrell Status: REG RCR Insurance: MEDICARE PART A B CIGNA Patient's Visit Information ALTAGRACIA MORALES is a 76 year old F referred to Physical Therapy by Altagracia Morrell with a diagnosis of L leg pain. Date of Evaluation: 03/07/16 Physical Therapist: Rm Ramos, PT, - Visit Plan Frequency: 1x/Week Duration: 1 Week Plan: Issued HEP of LE stretches for L LE - Subjective Subjective: Chronic L leg pain for 23 years. Pain had an insidious onset in nature. Pt reports her pain is located on the lateral aspect of her L upper leg. Pt denies LBP on this date or in the past. Pt reports her L thigh only tends to hurt a lot when she ambulates for long periods of time. Pt reports she used to go on daily walks in the past, but had to stop secondary to her L thigh pain. No T or N in L LE. No sleep difficulty secondary to pain. 0/10 at rest, 6/10 at worst. - Pain L thigh Pain Intensity (Out of 10): 0 Pain Intensity Range: 6 - Objective Neuro: B LE sensation is WNL to light touch. B pat reflex= 2/3. ROM: B LE's are WNL to light touch. MMT: B LE's= 5/5 throughout. Palpation: No pain or obvious deformity throughout. 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 For Medicare and Medicare HMO plans, please review the plan of care and approve it. It will need to be FAXED BACK to us at [phone] for Medicare purposes. Please let me know if there are questions or concerns regarding this plan of care. Physician Signature: D ate: <Electronically signed by Rm Ramos PT, ATC> 03/07/16 1419 CC: Altagracia Morrell; Mera Hollingsworth DO [facility] Signed For Medicare only, by signing this I certify the plan of care. Physicians Signature Date Mera Hollingsworth Start: 03-01-2016 End: 03-01-2016 Femur Min 2 Views Comments: See Note; NOTES: [facility] Imaging Services [address] [place] [address] Verdana 4d Femur Min 2 Views MR#: [id number] Acct: [id number] Name: ALTAGRACIA MORALES Rep #: [id number] : 1940 F 76 From: Anil Malone DO PCP: Mera Hollingsworth DO Status: REG CLI Study: Femur Min 2 Views Date of Exam: 03/01/16 Exam# [id number] Ordering Dr: Altagracia Morrell STUDY: X-RAY - LEFT FEMUR REASON FOR STUDY: Female, 76 years old. Lateral upper leg pain. No trauma. TECHNIQUE: Radiological exam, femur, minimum 2 views COMPARISON: None. FINDINGS: Normal visualized femur. There is no fracture or dislocation. There are mild degenerative changes of the knee and hip. Normal visualized soft tissue structure. RAD/Femur Min 2 Views IMPRESSION: No acute fracture or dislocation. Electronically Signed: Anil Malone DO at 16:56 EDT Tel [phone], Service support [phone], CC: Altagracia Morrell; Mera Hollingsworth DO [employer]: Signed Altagracia Morrell Work Phone: Extraction of cataract Abimael a Slarb Plan of Treatment Date Care Activity Detail Author Start: 09-19-2023 End: 09-19-2023 Patient encounter procedure 09/19/2023 10:45 AM EDT Office Visit [facility] [address] [place] [id number] Emilio Phan MD [address] [address] [facility] Start: 03-20-2023 End: 03-20-2023 Patient encounter procedure 03/20/2023 2:00 PM EDT Office Visit [facility] [address] [place] [address] Emilio Phan MD [address] [address] [facility] Start: 02-10-2023 COVID-19 Vaccine ( season) COVID-19 Vaccine ( season) [facility] Start: 02-10-2023 Influenza vaccination [facility] Start: 08-18-2022 Procedure Education Eprescribed prescriptions (G8553) [facility]; [facility] Work Phone: Start: 08-18-2022 Provider Instructions for Treatment [facility]; [facility] Work Phone: Start: 08-05-2022 Procedure Education Eprescribed prescriptions (G8553) [facility]; [facility] Work Phone: Start: 08-05-2022 25 hydroxy includes fractions if performed CALCIFIDIOL (82271) VIT D 25 [facility]; [facility] Work Phone: Start: 08-05-2022 Assay of thyroid stimulating hormone tsh TSH (10596) [facility]; [facility] Work Phone: Start: 08-05-2022 Comprehensive metabolic panel METABOLIC PANEL, COMPREHENSIVE (88708) [facility]; [facility] Work Phone: Start: 08-05-2022 Lipid panel LIPID PANEL (24167) [facility]; [facility] Work Phone: Start: 08-05-2022 Blood count complete auto&auto difrntl wbc CBC W/AUTO DIFF WBC (59511) [facility]; [facility] Work Phone: Start: 09-08-2021 Procedure Education Eprescribed prescriptions (G8553) [facility]; [facility] Work Phone: Start: 09-21-2020 Procedure Education Eprescribed prescriptions (G8553) [facility]; [facility] Work Phone: Start: 09-21-2020 Provider Instructions for Treatment [facility]; [facility] Work Phone: Start: 08-11-2020 History and physical examination, annual for health maintenance Wellness Visit [facility] Start: 02-05-2020 Procedure Education Eprescribed prescriptions (G8553) [facility] Work Phone: Start: 02-05-2020 Provider Instructions for Treatment Reviewed Diagnostic Tests [facility] Work Phone: Start: 01-13-2020 Procedure Education Eprescribed prescriptions (G8553) [facility] Work Phone: Start: 01-13-2020 Provider Instructions for Treatment Reviewed Diagnostic Tests [facility] Work Phone: Start: 08-12-2019 Provider Instructions for Treatment [facility] Work Phone: Start: 07-26-2019 Provider Instructions for Treatment [facility] Work Phone: Start: 12-24-2018 TSH Qn TSH (THYROID STIMULATING HORMONE) (69800) [facility] Work Phone: Start: 12-24-2018 Blood count complete automated CBC & PLATELETS (AUTO) (96146) [facility] Work Phone: Start: 12-24-2018 Procedure Education Eprescribed prescriptions (G8553) [facility] Work Phone: Start: 09-06-2017 Provider Instructions for Treatment BP MONITORING - SELF [facility] Work Phone: Start: 08-07-2017 Provider Instructions for Treatment [facility] Work Phone: Start: 03-31-2016 Provider Instructions for Treatment [facility] Work Phone: Start: 03-17-2016 Provider Instructions for Treatment Reviewed Waste Minimization Technician Letter [facility] Work Phone: Start: 03-01-2016 Provider Instructions for Treatment Follow up in 2 weeks [facility] Work Phone: Start: 02-19-2016 Blood occult fecal hgb deter ia qual feces 1-3 FECAL OCCULT- Tubes sent home (69552) [facility] Work Phone: Start: 02-19-2016 Provider Instructions for Treatment *Colon Cancer Screening [facility] Work Phone: Start: 07-13-2015 Tetanus vaccination Tetanus: Every 10yrs [facility] Start: 2006 Fall risk assessment Falls Risk Assessment [facility] Start: 1991 Administration of herpes zoster vaccine Zoster Vaccines (1 of 2) [facility] Start: 1953 Depression screening using PHQ-9 (Patient Health Questionnaire 9) score Depression Screening (PHQ-2/9) [facility] Start: 1940 Screening for osteoporosis Dexa Scan [facility] Work Phone: [facility] Work Phone: [facility] Work Phone: [facility] Work Phone: [facility] Work Phone: [facility] Work Phone[facility] Work Phone[facility] Work Phone[facility] Work Phone: [facility] Work Phone: [facility] Work Phone: [facility] Work Phone: [facility] Work Phone: [facility] Work Phone: [facility] Work Phone: Payers Date Payer Category Payer Medicare [id number] 2006 Medicare MEDICARE MEDICAR E PART A & B [id number] 2006-Present [phone] [employer] [id number] PART A CLAIMS [address] [address] [place] [address] [id number] 2005 Private Health Insurance [id number] 2005 Private Health Insurance CIGNA C IGNA PPO/EPO/FUNDAMENTAL CARE [id number] 2005-Present [phone] [address] [place] [address] [id number] 1940 Unknown [id number] 1940 Unknown [id number] 1940 Unknown [id number] 1940 Unknown [id number] Unknown Unknown [id number] Social History Date Type Detail Facility Start: 09-20-2022 End: 11-08-2022 Caffeine Use Caffeine Use [facility] Work Phone: Exercise History: Exercise History: [facility] Work Phone: Living Situation: Living Situation: [facility] Work Phone: Tobacco use: Tobacco use: [facility] Work Phone: Exercise History: Exercise History: [facility] Work Phone: Living Situation: Living Situation: [facility]; [facility] Work Phone: Tobacco use: Tobacco use: [facility] Work Phone: Start: 09-20-2022 Tobacco smoking status NHIS Never smoked tobacco [facility] Start: 09-20-2022 Tobacco use and exposure Smokeless tobacco non-user [facility] Start: 09-20-2022 End: 03-20-2023 Alcohol intake Lifetime non-drinker (finding) [facility] Start: 1940 Sex Assigned At Not on file [facility] Start: 09-20-2022 End: 11-08-2022 Gender identity Not on file [facility] Start: 09-10-2022 End: 11-08-2022 Exposure to SARS-CoV-2 (event) Not sure [facility] Clinical Notes 09-20-2022 to 03-20-2023 Emilio Phan MD - 03/20/2023 3:02 PM Fatou Jerry MA - 03/20/2023 2:40 PM Armaan Phan MD - 11/08/2022 2:30 PM Iesha Richardson MA - 11/08/2022 2:17 PM EDT Note Date & Type Note Facility 03-20-2023 History of Presen t illness Narrative [facility] [address] [facility] [address] [facility] [address] Dept: [phone] Emilio Phan MD Altagracia Morales 83 y.o. female Patient presents with a chief complaint of Follow-up (6 month ear check) Temp 98.4 F (36.9 C) Ht 5' 4 Wt 80.3 kg (177 lb) BMI 30.38 kg/m History of Presenting Illness: The patient/caregiver reports a history of complaint with the following features: She denies any ongoing ear complaints and is feeling well at this time. She denies scooby ear pain, discharge, or loss of hearing. Review of systems covering 10 systems is reviewed and pertinent positives and negatives are noted as above. Past Medical History: Diagnosis Date Benign neoplasm of colon Breast cancer (HCC) 2019 Diverticulosis Fracture of scaphoid bone right wrist Hypercholesterolemia Osteopenia Otorrhea of right ear Ovarian cyst Vitamin D deficiency Current Outpatient Medications: calcium carbonate (OS-SRINIVAS) 500 mg calcium (1,250 mg) tablet, Take by mouth ., Disp: , Rfl: cholecalciferol, vitamin D3, 1,000 unit tablet, Take 1 (one) tablet (1,000 Units total) by mouth daily ., Disp: , Rfl: omega-3 fatty acids/fish oil (fish oil-omega-3 fatty acids) 300-1,000 mg capsule, Take by mouth ., Disp: , Rfl: vitamin E 400 UNIT capsule, 1 (one) capsule (400 Units total) ., Disp: , Rfl: Allergies Allergen Reactions Penicillins Rash Past Surgical History: Procedure Laterality Date BREAST LUMPECTOMY 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 Higgins CATARACT EXTRACTION W/ INTRAOCULAR LENS IMPLANT Right COLONOSCOPY W/ BIOPSIES 09/13/2011 COLONOSCOPY W/ POLYPECTOMY 08/25/2008 SALPINGOOPHORECTOMY TUBAL LIGATION Social History Socioeconomic History Marital status: Tobacco Use Smoking status: Never Smokeless tobacco: Never Vaping Use Vaping Use: Never used Substance and Sexual Activity Alcohol use: Never Drug use: Never Family History Problem Relation Age of Onset Osteoporosis Mother Diabetes Father Hypertension Father Hypertension Brother Diabetes Brother PHYSICAL EXAM: The patient was examined today 03/20/2023 with findings as follows: CONSTITUTIONAL: General Appearance: well-appearing, nontoxic, alert, no acute distress Communication: normal voicing, hearing intact to spoken voice HEAD/FACE: Head: atraumatic, normocephalic, no lesions Facial Inspection: no lesions, healthy skin Facial Strength: motor strength normal, symmetric strength, symmetric movement EYES: Pupils: PERRLA, extra-ocular movements intact, no nystagmus, sclera white, no redness of eyes, no watering of eyes EARS: Bilateral External Ears: no pits, no tags Right External Ear: normally formed, no lesions, no mastoid tenderness Left External Ear: normally formed, no lesions, no mastoid tenderness Right External Auditory Canal: normal, healthy skin, no obstructing cerumen, no discharge Left External Auditory Canal: normal, healthy skin, no obstructing cerumen, no discharge Right Tympanic Membrane: normal landmarks, translucent, T-tube in place and patent, debris removed from canal Left Tympanic Membrane: normal landmarks, translucent, no perforation Hearing: intact to spoken voice NECK: Neck: no masses, trachea midline, normal range of motion, no cysts or pits, no tenderness to palpation LYMPH NODES: Cervical: no palpable lymph node enlargement SKIN: General Appearance: no lesions, warm and dry, normal turgor, no bruising PSYCHIATRIC: Mood and affect: normal mood, normal affect Assessment and Plan: The patient presents for follow-up after myringotomy tube placement with good relief of his/her ear complaints. The avoidance of water exposure to the ear and mechanical trauma such as the use of cotton tipped swabs or the insertion of objects into the ear is advised, as well as the need for ongoing follow-up while the tubes remain in place to ensure proper function and healing after extrusion. The patient and/or caregiver is to notify the office if no improvement or worsening of symptoms is noted prior to the scheduled follow-up for sooner evaluation. The patient and/or caregiver is able to state an understanding of these recommendations and is agreeable to the treatment plan. 1. Disorder of right eustachian tube Return in about 6 months (around 09/19/2023). The patient and/or caregiver is to notify the office if no improvement or worsening of symptoms is noted prior to the scheduled follow-up for sooner evaluation. The patient and/or caregiver is able to state an understanding of these recommendations and is agreeable to the treatment plan. --Emilio Phan MD on 03/20/2023 at 3:06 PM An electronic signature was used to authenticate this note. Review of Systems Constitutional: Negative. HENT: Negative. Eyes: Negative. Respiratory: Negative. Cardiovascular: Negative. Gastrointestinal: Negative. Endocrine: Negative. Genitourinary: Negative. Musculoskeletal: Negative. Allergic/Immunologic: Negative. Neurological: Negative. Hematological: Negative. Psychiatric/Behavioral: Negative. documented in this encounter [facility] 11-08-2022 History of Presen t illness Narrative [facility] [address] [facility] [place] [address] [facility] [id number] Dept: [phone] Emilio Phan MD [facility] 82 y.o. female Patient presents with a chief complaint of f/u ear tube out (Est pt) Temp 98 F (36.7 C) Ht 5' 4 Wt 78.7 kg (173 lb 9.6 oz) BMI 29.80 kg/m History of Presenting Illness: The patient/caregiver reports a history of complaint with the following features: Onset: started a few weeks ago Timing: sudden onset Duration: few weeks Quality: change in sound quality in right ear Location: right Severity: pain none Risk factors: history of ear tubes Alleviating factors: nothing gives relief Aggravating factors: nothing makes it worse Associated factors: no ear drainage but does feel damp Review of systems covering 10 systems is reviewed and pertinent positives and negatives are noted as above. Past Medical History: Diagnosis Date Benign neoplasm of colon Breast cancer (HCC) 2019 Diverticulosis Fracture of scaphoid bone right wrist Hypercholesterolemia Osteopenia Otorrhea of right ear Ovarian cyst Vitamin D deficiency Current Outpatient Medications: calcium carbonate (OS-SRINIVAS) 500 mg calcium (1,250 mg) tablet, Take by mouth ., Disp: , Rfl: cholecalciferol, vitamin D3, 1,000 unit tablet, Take 1 (one) tablet (1,000 Units total) by mouth daily ., Disp: , Rfl: omega-3 fatty acids/fish oil (fish oil-omega-3 fatty acids) 300-1,000 mg capsule, Take by mouth ., Disp: , Rfl: vitamin E 400 UNIT capsule, 1 (one) capsule (400 Units total) ., Disp: , Rfl: Allergies Allergen Reactions Penicillins Rash Past Surgical History: Procedure Laterality Date BREAST LUMPECTOMY 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 Higgins CATARACT EXTRACTION W/ INTRAOCULAR LENS IMPLANT Right COLONOSCOPY W/ BIOPSIES 09/13/2011 COLONOSCOPY W/ POLYPECTOMY 08/25/2008 SALPINGOOPHORECTOMY TUBAL LIGATION Social History Socioeconomic History Marital status: Tobacco Use Smoking status: Never Smokeless tobacco: Never Vaping Use Vaping Use: Never used Substance and Sexual Activity Alcohol use: Never Drug use: Never Family History Problem Relation Age of Onset Osteoporosis Mother Diabetes Father Hypertension Father Hypertension Brother Diabetes Brother PHYSICAL EXAM: The patient was examined today 11/08/2022 with findings as follows: CONSTITUTIONAL: General Appearance: well-appearing, nontoxic, alert, no acute distress Communication: normal voicing, hearing intact to spoken voice HEAD/FACE: Head: atraumatic, normocephalic, no lesions Facial Inspection: no lesions, healthy skin Facial Strength: motor strength normal, symmetric strength, symmetric movement EYES: Pupils: PERRLA, extra-ocular movements intact, no nystagmus, sclera white, no redness of eyes, no watering of eyes EARS: Bilateral External Ears: no pits, no tags Right External Ear: normally formed, no lesions, no mastoid tenderness Left External Ear: normally formed, no lesions, no mastoid tenderness Right External Auditory Canal: normal, healthy skin, no obstructing cerumen, no discharge Left External Auditory Canal: normal, healthy skin, no obstructing cerumen, no discharge Right Tympanic Membrane: normal landmarks, translucent, T-tube in place and patent, debris cuff removed Left Tympanic Membrane: normal landmarks, translucent, no perforation Hearing: intact to spoken voice NECK: Neck: no masses, trachea midline, normal range of motion, no cysts or pits, no tenderness to palpation LYMPH NODES: Cervical: no palpable lymph node enlargement SKIN: General Appearance: no lesions, warm and dry, normal turgor, no bruising PSYCHIATRIC: Mood and affect: normal mood, normal affect Assessment and Plan: She has a debris cuff around her T-tube. This is removed with improvement in her symptoms. I see no other signs of disease. The patient presents for follow-up after myringotomy tube placement with good relief of his/her ear complaints. The avoidance of water exposure to the ear and mechanical trauma such as the use of cotton tipped swabs or the insertion of objects into the ear is advised, as well as the need for ongoing follow-up while the tubes remain in place to ensure proper function and healing after extrusion. The patient and/or caregiver is to notify the office if no improvement or worsening of symptoms is noted prior to the scheduled follow-up for sooner evaluation. The patient and/or caregiver is able to state an understanding of these recommendations and is agreeable to the treatment plan. 1. Disorder of right eustachian tube No follow-ups on file. The patient and/or caregiver is to notify the office if no improvement or worsening of symptoms is noted prior to the scheduled follow-up for sooner evaluation. The patient and/or caregiver is able to state an understanding of these recommendations and is agreeable to the treatment plan. --Emilio Phan MD on 11/08/2022 at 2:36 PM An electronic signature was used to authenticate this note. Review of Systems Constitutional: Negative. HENT: Negative. Eyes: Positive for visual disturbance. Respiratory: Negative. Cardiovascular: Negative. Gastrointestinal: Negative. Endocrine: Negative. Genitourinary: Negative. Musculoskeletal: Negative. Skin: Negative. Allergic/Immunologic: Negative. Neurological: Negative. Hematological: Negative. Psychiatric/Behavioral: Negative. documented in this encounter [facility] 09-20-2022 History of Presen t illness Narrative Review of Systems Constitutional: Negative. HENT: Positive for ear pain (a plugged feeling in right ear). Eyes: Positive for visual disturbance. Respiratory: Negative. Cardiovascular: Negative. Gastrointestinal: Negative. Endocrine: Negative. Genitourinary: Negative. Musculoskeletal: Negative. Skin: Negative. Allergic/Immunologic: Negative. Neurological: Negative. Hematological: Negative. Psychiatric/Behavioral: Negative. [facility] [address] [facility] [address] [facility] [id number] Dept: [phone] Emilio Phan MD [facility] 82 y.o. female Patient presents with a chief complaint of had tube put in at [facility] and wants it chked out (New PT /Has had some plugged up feeling in the right ear.) Temp 98.8 F (37.1 C) Ht 5' 4 Wt 78.9 kg (173 lb 14.4 oz) BMI 29.85 kg/m History of Presenting Illness: The patient/caregiver reports a history of complaint with the following features: Onset: started about a month ago Duration: one month Quality: right ear fullness Location: right ear Severity: pain none Risk factors: prior right ear tube placement Alleviating factors: nothing gives relief Aggravating factors: nothing makes it worse Associated factors: no hearing loss, no drainage Review of systems covering 10 systems is reviewed and pertinent positives and negatives are noted as above. Past Medical History: Diagnosis Date Benign neoplasm of colon Breast cancer (HCC) 2019 Diverticulosis Fracture of scaphoid bone right wrist Hypercholesterolemia Osteopenia Otorrhea of right ear Ovarian cyst Vitamin D deficiency Current Outpatient Medications: calcium carbonate (OS-SRINIVAS) 500 mg calcium (1,250 mg) tablet, Take by mouth ., Disp: , Rfl: cholecalciferol, vitamin D3, 1,000 unit tablet, Take 1 (one) tablet (1,000 Units total) by mouth daily ., Disp: , Rfl: omega-3 fatty acids/fish oil (fish oil-omega-3 fatty acids) 300-1,000 mg capsule, Take by mouth ., Disp: , Rfl: vitamin E 400 UNIT capsule, 1 (one) capsule (400 Units total) ., Disp: , Rfl: Allergies Allergen Reactions Penicillins Rash Past Surgical History: Procedure Laterality Date BREAST LUMPECTOMY 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 Higgins CATARACT EXTRACTION W/ INTRAOCULAR LENS IMPLANT Right COLONOSCOPY W/ BIOPSIES 09/13/2011 COLONOSCOPY W/ POLYPECTOMY 08/25/2008 SALPINGOOPHORECTOMY TUBAL LIGATION Social History Socioeconomic History Marital status: Tobacco Use Smoking status: Never Smokeless tobacco: Never Vaping Use Vaping status: Never Used Substance and Sexual Activity Alcohol use: Never Drug use: Never Family History Problem Relation Age of Onset Osteoporosis Mother Diabetes Father Hypertension Father Hypertension Brother Diabetes Brother PHYSICAL EXAM: The patient was examined today 09/20/2022 with findings as follows: CONSTITUTIONAL: General Appearance: well-appearing, nontoxic, alert, no acute distress Communication: normal voicing, hearing intact to spoken voice HEAD/FACE: Head: atraumatic, normocephalic, no lesions Facial Inspection: no lesions, healthy skin Facial Strength: motor strength normal, symmetric strength, symmetric movement EYES: Pupils: PERRLA, extra-ocular movements intact, no nystagmus, sclera white, no redness of eyes, no watering of eyes EARS: Bilateral External Ears: no pits, no tags Right External Ear: normally formed, no lesions, no mastoid tenderness Left External Ear: normally formed, no lesions, no mastoid tenderness Right External Auditory Canal: normal, healthy skin, no obstructing cerumen, no discharge, extruded tube in canal Left External Auditory Canal: normal, healthy skin, no obstructing cerumen, no discharge Right Tympanic Membrane: normal landmarks, serous effusion, healed perforation Left Tympanic Membrane: normal landmarks, translucent, no perforation Hearing: intact to spoken voice, Rinne BC>AC right NECK: Neck: no masses, trachea midline, normal range of motion, no cysts or pits, no tenderness to palpation LYMPH NODES: Cervical: no palpable lymph node enlargement SKIN: General Appearance: no lesions, warm and dry, normal turgor, no bruising PSYCHIATRIC: Mood and affect: normal mood, normal affect TYMPANOSTOMY TUBE PLACEMENT NOTE ([id number]) PROCEDURE PERFORMED BY: Emilio Phan MD PROCEDURE DATE: 09/20/2022 The patient and/or caregiver is counseled regarding the above procedure including risks, alternatives, potential complications and benefits, and is agreeable to proceed. Witnessed informed consent is obtained. Right ear tube placement is performed as follows. With the patient s consent, the operative microscope is used to visualize the tympanic membrane through an otic speculum. Any obstructing cerumen is removed. The guilherme-inferior portion of the tympanic membrane is then anesthetized by topical application of phenol. A myringotomy is then performed and any fluid present aspirated with a #5 suction. An Galina T-tube is then placed. The patient tolerated the procedure well without complication. There is noted to be improved hearing after the procedure. The patient is advised to avoid water exposure to the ear and to call for significant pain, bleeding, drainage, vertigo, or change in hearing. Assessment and Plan: She has extruded her right T-tube with recurrence of her middle ear effusion. This is replaced today with relief of her ear fullness and hearing complaints. She has some Ciprodex from prior treatment and I have asked her to use 3 drops twice a day for 3 days to that ear. The patient and/or caregiver is advised on the avoidance of water exposure to the ear and mechanical trauma such as the use of cotton tipped swabs or the insertion of objects into the ear is advised. The patient and/or caregiver is to notify the office if no improvement or worsening of symptoms is noted prior to the scheduled follow-up for sooner evaluation. The patient and/or caregiver is able to state an understanding of these recommendations and is agreeable to the treatment plan. 1. Chronic serous otitis media of right ear 2. Conductive hearing loss of right ear with unrestricted hearing of left ear Return in about 6 months (around 03/22/2023). The patient and/or caregiver is to notify the office if no improvement or worsening of symptoms is noted prior to the scheduled follow-up for sooner evaluation. The patient and/or caregiver is able to state an understanding of these recommendations and is agreeable to the treatment plan. --Emilio Phan MD on 09/20/2022 at 2:23 PM An electronic signature was used to authenticate this note. documented [facility] encounter [facility] Disorder of right eustachian tube- Primary [facility] Disorder of right eustachian tube- [facility] Name Dates Details Patient Instructions Indication:Nonsmoker Start:21-Sep-2020 Instruction Type:Provider Instructions for Treatment Patient Instructions Indication:Nonsmoker Start:21-Sep-2020 Instruction Type:Provider Instructions for Treatment How to Access [employer] Online using Patient Portal and [employer] Apps Indication:Nonsmoker Start:21-Sep-2020 Instruction Type:Patient Education How to access health informa tion online Indication:BMI 30.0-30.9,adult Start:05-Feb-2020 Instruction Type:Patient Education How to access health informa tion online - Detail Indication:BMI 30.0-30.9,adult Start:05-Feb-2020 Instruction Type:Patient Education Patient Instructions Indication:BMI 30.0-30.9,adult Start:05-Feb-2020 Instruction Type:Provider Instructions for Treatment How to access health informa tion online Indication:BMI 30.0-30.9,adult Start:13-Jan-2020 Instruction Type:Patient Education How to access health informa tion online - Detail Indication:BMI 30.0-30.9,adult Start:13-Jan-2020 Instruction Type:Patient Education Patient Instructions Indication:BMI 30.0-30.9,adult Start:13-Jan-2020 Instruction Type:Provider Instructions for Treatment How to access health informa tion online Indication:Nonsmoker Start:12-Aug-2019 Instruction Type:Patient Education How to access health informa tion online - Detail Indication:Nonsmoker Start:12-Aug-2019 Instruction Type:Patient Education Patient Instructions Indication:Nonsmoker Start:12-Aug-2019 Instruction Type:Provider Instructions for Treatment How to access health informa tion online Indication:Nonsmoker Start:26-Jul-2019 Instruction Type:Patient Education How to access health informa tion online - Detail Indication:Nonsmoker Start:26-Jul-2019 Instruction Type:Patient Education Patient Instructions Indication:Nonsmoker Start:26-Jul-2019 Instruction Type:Provider Instructions for Treatment How to access health informa tion online Indication:Bloody discharge from right nipple Start:24-Dec-2018 Instruction Type:Patient Education How to access health informa tion online - Detail Indication:Bloody discharge from right nipple Start:24-Dec-2018 Instruction Type:Patient Education Patient Instructions Indication:Bloody discharge from right nipple Start:24-Dec-2018 Instruction Type:Provider Instructions for Treatment How to access health informa tion online Indication:BMI 29.0-29.9,adult Start:06-Sep-2017 Instruction Type:Patient Education How to access health informa tion online - Detail Indication:BMI 29.0-29.9,adult Start:06-Sep-2017 Instruction Type:Patient Education Patient Instructions Indication:BMI 29.0-29.9,adult Start:06-Sep-2017 Instruction Type:Provider Instructions for Treatment How to access health informa tion online Indication:Non-smoker Start:07-Aug-2017 Instruction Type:Patient Education How to access health informa tion online - Detail Indication:Non-smoker Start:07-Aug-2017 Instruction Type:Patient Education Patient Instructions Indication:Non-smoker Start:07-Aug-2017 Instruction Type:Provider Instructions for Treatment Patient Instructions Indication:Skin lesion Start:31-Mar-2016 Instruction Type:Provider Instructions for Treatment Patient Instructions Indication:Annual Medicare Phyiscal WITHOUT abnormal findings (Renamed from Encounter for general adult medical examination without abnormal findings) Start:19-Feb-2016 Instruction Type:Provider Instructions for Treatment [facility] Work Phone: Instructions* Name Dates Details Patient Instructions Indication:Nonsmoker Start:21-Sep-2020 Instruction Type:Provider Instructions for Treatment Patient Instructions Indication:Nonsmoker Start:21-Sep-2020 Instruction Type:Provider Instructions for Treatment How to Access Health Informa tion Online using Patient Portal and [employer] Apps Indication:Nonsmoker Start:21-Sep-2020 Instruction Type:Patient Education How to access health informa tion online Indication:BMI 30.0-30.9,adult Start:05-Feb-2020 Instruction Type:Patient Education How to access health informa tion online - Detail Indication:BMI 30.0-30.9,adult Start:05-Feb-2020 Instruction Type:Patient Education Patient Instructions Indication:BMI 30.0-30.9,adult Start:05-Feb-2020 Instruction Type:Provider Instructions for Treatment How to access health informa tion online Indication:BMI 30.0-30.9,adult Start:13-Jan-2020 Instruction Type:Patient Education How to access health informa tion online - Detail Indication:BMI 30.0-30.9,adult Start:13-Jan-2020 Instruction Type:Patient Education Patient Instructions Indication:BMI 30.0-30.9,adult Start:13-Jan-2020 Instruction Type:Provider Instructions for Treatment How to access health informa tion online Indication:Nonsmoker Start:12-Aug-2019 Instruction Type:Patient Education How to access health informa tion online - Detail Indication:Nonsmoker Start:12-Aug-2019 Instruction Type:Patient Education Patient Instructions Indication:Nonsmoker Start:12-Aug-2019 Instruction Type:Provider Instructions for Treatment How to access health informa tion online Indication:Nonsmoker Start:26-Jul-2019 Instruction Type:Patient Education How to access health informa tion online - Detail Indication:Nonsmoker Start:26-Jul-2019 Instruction Type:Patient Education Patient Instructions Indication:Nonsmoker Start:26-Jul-2019 Instruction Type:Provider Instructions for Treatment How to access health informa tion online Indication:Bloody discharge from right nipple Start:24-Dec-2018 Instruction Type:Patient Education How to access health informa tion online - Detail Indication:Bloody discharge from right nipple Start:24-Dec-2018 Instruction Type:Patient Education Patient Instructions Indication:Bloody discharge from right nipple Start:24-Dec-2018 Instruction Type:Provider Instructions for Treatment How to access health informa tion online Indication:BMI 29.0-29.9,adult Start:06-Sep-2017 Instruction Type:Patient Education How to access health informa tion online - Detail Indication:BMI 29.0-29.9,adult Start:06-Sep-2017 Instruction Type:Patient Education Patient Instructions Indication:BMI 29.0-29.9,adult Start:06-Sep-2017 Instruction Type:Provider Instructions for Treatment How to access health informa tion online Indication:Non-smoker Start:07-Aug-2017 Instruction Type:Patient Education How to access health informa tion online - Detail Indication:Non-smoker Start:07-Aug-2017 Instruction Type:Patient Education Patient Instructions Indication:Non-smoker Start:07-Aug-2017 Instruction Type:Provider Instructions for Treatment Patient Instructions Indication:Skin lesion Start:31-Mar-2016 Instruction Type:Provider Instructions for Treatment Patient Instructions Indication:Annual Medicare Phyiscal WITHOUT abnormal findings (Renamed from Encounter for general adult medical examination without abnormal findings) Start:19-Feb-2016 Instruction Type:Provider Instructions for Treatment [facility] Work Phone: Instructions* Name Dates Details Patient Instructions Indication:Nonsmoker Start:21-Sep-2020 Instruction Type:Provider Instructions for Treatment Patient Instructions Indication:Nonsmoker Start:21-Sep-2020 Instruction Type:Provider Instructions for Treatment How to Access Health Informa tion Online using Patient Portal and 3rd [employer] Indication:Nonsmoker Start:21-Sep-2020 Instruction Type:Patient Education How to access health informa tion online Indication:BMI 30.0-30.9,adult Start:05-Feb-2020 Instruction Type:Patient Education How to access health informa tion online - Detail Indication:BMI 30.0-30.9,adult Start:05-Feb-2020 Instruction Type:Patient Education Patient Instructions Indication:BMI 30.0-30.9,adult Start:05-Feb-2020 Instruction Type:Provider Instructions for Treatment How to access health informa tion online Indication:BMI 30.0-30.9,adult Start:13-Jan-2020 Instruction Type:Patient Education How to access health informa tion online - Detail Indication:BMI 30.0-30.9,adult Start:13-Jan-2020 Instruction Type:Patient Education Patient Instructions Indication:BMI 30.0-30.9,adult Start:13-Jan-2020 Instruction Type:Provider Instructions for Treatment How to access health informa tion online Indication:Nonsmoker Start:12-Aug-2019 Instruction Type:Patient Education How to access health informa tion online - Detail Indication:Nonsmoker Start:12-Aug-2019 Instruction Type:Patient Education Patient Instructions Indication:Nonsmoker Start:12-Aug-2019 Instruction Type:Provider Instructions for Treatment How to access health informa tion online Indication:Nonsmoker Start:26-Jul-2019 Instruction Type:Patient Education How to access health informa tion online - Detail Indication:Nonsmoker Start:26-Jul-2019 Instruction Type:Patient Education Patient Instructions Indication:Nonsmoker Start:26-Jul-2019 Instruction Type:Provider Instructions for Treatment How to access health informa tion online Indication:Bloody discharge from right nipple Start:24-Dec-2018 Instruction Type:Patient Education How to access health informa tion online - Detail Indication:Bloody discharge from right nipple Start:24-Dec-2018 Instruction Type:Patient Education Patient Instructions Indication:Bloody discharge from right nipple Start:24-Dec-2018 Instruction Type:Provider Instructions for Treatment How to access health informa tion online Indication:BMI 29.0-29.9,adult Start:06-Sep-2017 Instruction Type:Patient Education How to access health informa tion online - Detail Indication:BMI 29.0-29.9,adult Start:06-Sep-2017 Instruction Type:Patient Education Patient Instructions Indication:BMI 29.0-29.9,adult Start:06-Sep-2017 Instruction Type:Provider Instructions for Treatment How to access health informa tion online Indication:Non-smoker Start:07-Aug-2017 Instruction Type:Patient Education How to access health informa tion online - Detail Indication:Non-smoker Start:07-Aug-2017 Instruction Type:Patient Education Patient Instructions Indication:Non-smoker Start:07-Aug-2017 Instruction Type:Provider Instructions for Treatment Patient Instructions Indication:Skin lesion Start:31-Mar-2016 Instruction Type:Provider Instructions for Treatment Patient Instructions Indication:Annual Medicare Phyiscal WITHOUT abnormal findings (Renamed from Encounter for general adult medical examination without abnormal findings) Start:19-Feb-2016 Instruction Type:Provider Instructions for Treatment [facility] Work Phone: Instructions* Name Dates Details Patient Instructions Indication:BMI 30.0-30.9,adult Start:08-Sep-2021 Instruction Type:Provider Instructions for Treatment How to Access Health Informa tion Online using Patient Portal and [employer] Indication:BMI 30.0-30.9,adult Start:08-Sep-2021 Instruction Type:Patient Education Patient Instructions Indication:Nonsmoker Start:21-Sep-2020 Instruction Type:Provider Instructions for Treatment Patient Instructions Indication:Nonsmoker Start:21-Sep-2020 Instruction Type:Provider Instructions for Treatment How to Access Health Informa tion Online using Patient Portal and [employer] Indication:Nonsmoker Start:21-Sep-2020 Instruction Type:Patient Education How to access health informa tion online Indication:BMI 30.0-30.9,adult Start:05-Feb-2020 Instruction Type:Patient Education How to access health informa tion online - Detail Indication:BMI 30.0-30.9,adult Start:05-Feb-2020 Instruction Type:Patient Education Patient Instructions Indication:BMI 30.0-30.9,adult Start:05-Feb-2020 Instruction Type:Provider Instructions for Treatment How to access health informa tion online Indication:BMI 30.0-30.9,adult Start:13-Jan-2020 Instruction Type:Patient Education How to access health informa tion online - Detail Indication:BMI 30.0-30.9,adult Start:13-Jan-2020 Instruction Type:Patient Education Patient Instructions Indication:BMI 30.0-30.9,adult Start:13-Jan-2020 Instruction Type:Provider Instructions for Treatment How to access health informa tion online Indication:Nonsmoker Start:12-Aug-2019 Instruction Type:Patient Education How to access health informa tion online - Detail Indication:Nonsmoker Start:12-Aug-2019 Instruction Type:Patient Education Patient Instructions Indication:Nonsmoker Start:12-Aug-2019 Instruction Type:Provider Instructions for Treatment How to access health informa tion online Indication:Nonsmoker Start:26-Jul-2019 Instruction Type:Patient Education How to access health informa tion online - Detail Indication:Nonsmoker Start:26-Jul-2019 Instruction Type:Patient Education Patient Instructions Indication:Nonsmoker Start:26-Jul-2019 Instruction Type:Provider Instructions for Treatment How to access health informa tion online Indication:Bloody discharge from right nipple Start:24-Dec-2018 Instruction Type:Patient Education How to access health informa tion online - Detail Indication:Bloody discharge from right nipple Start:24-Dec-2018 Instruction Type:Patient Education Patient Instructions Indication:Bloody discharge from right nipple Start:24-Dec-2018 Instruction Type:Provider Instructions for Treatment How to access health informa tion online Indication:BMI 29.0-29.9,adult Start:06-Sep-2017 Instruction Type:Patient Education How to access health informa tion online - Detail Indication:BMI 29.0-29.9,adult Start:06-Sep-2017 Instruction Type:Patient Education Patient Instructions Indication:BMI 29.0-29.9,adult Start:06-Sep-2017 Instruction Type:Provider Instructions for Treatment How to access health informa tion online Indication:Non-smoker Start:07-Aug-2017 Instruction Type:Patient Education How to access health informa tion online - Detail Indication:Non-smoker Start:07-Aug-2017 Instruction Type:Patient Education Patient Instructions Indication:Non-smoker Start:07-Aug-2017 Instruction Type:Provider Instructions for Treatment Patient Instructions Indication:Skin lesion Start:31-Mar-2016 Instruction Type:Provider Instructions for Treatment Patient Instructions Indication:Annual Medicare Phyiscal WITHOUT abnormal findings (Renamed from Encounter for general adult medical examination without abnormal findings) Start:19-Feb-2016 Instruction Type:Provider Instructions for Treatment [facility]; [facility] Work Phone: Instructions* Name Dates Details Patient Instructions Indication:Nonsmoker Start:05-Aug-2022 Instruction Type:Provider Instructions for Treatment How to Access Health Informa tion Online using Patient Portal and [employer] Indication:Nonsmoker Start:05-Aug-2022 Instruction Type:Patient Education Patient Instructions Indication:BMI 30.0-30.9,adult Start:08-Sep-2021 Instruction Type:Provider Instructions for Treatment How to Access Health Informa tion Online using Patient Portal and [employer] Indication:BMI 30.0-30.9,adult Start:08-Sep-2021 Instruction Type:Patient Education Patient Instructions Indication:Nonsmoker Start:21-Sep-2020 Instruction Type:Provider Instructions for Treatment Patient Instructions Indication:Nonsmoker Start:21-Sep-2020 Instruction Type:Provider Instructions for Treatment How to Access Health Informa tion Online using Patient Portal and [employer] Indication:Nonsmoker Start:21-Sep-2020 Instruction Type:Patient Education How to access health informa tion online Indication:BMI 30.0-30.9,adult Start:05-Feb-2020 Instruction Type:Patient Education How to access health informa tion online - Detail Indication:BMI 30.0-30.9,adult Start:05-Feb-2020 Instruction Type:Patient Education Patient Instructions Indication:BMI 30.0-30.9,adult Start:05-Feb-2020 Instruction Type:Provider Instructions for Treatment How to access health informa tion online Indication:BMI 30.0-30.9,adult Start:13-Jan-2020 Instruction Type:Patient Education How to access health informa tion online - Detail Indication:BMI 30.0-30.9,adult Start:13-Jan-2020 Instruction Type:Patient Education Patient Instructions Indication:BMI 30.0-30.9,adult Start:13-Jan-2020 Instruction Type:Provider Instructions for Treatment How to access health informa tion online Indication:Nonsmoker Start:12-Aug-2019 Instruction Type:Patient Education How to access health informa tion online - Detail Indication:Nonsmoker Start:12-Aug-2019 Instruction Type:Patient Education Patient Instructions Indication:Nonsmoker Start:12-Aug-2019 Instruction Type:Provider Instructions for Treatment How to access health informa tion online Indication:Nonsmoker Start:26-Jul-2019 Instruction Type:Patient Education How to access health informa tion online - Detail Indication:Nonsmoker Start:26-Jul-2019 Instruction Type:Patient Education Patient Instructions Indication:Nonsmoker Start:26-Jul-2019 Instruction Type:Provider Instructions for Treatment How to access health informa tion online Indication:Bloody discharge from right nipple Start:24-Dec-2018 Instruction Type:Patient Education How to access health informa tion online - Detail Indication:Bloody discharge from right nipple Start:24-Dec-2018 Instruction Type:Patient Education Patient Instructions Indication:Bloody discharge from right nipple Start:24-Dec-2018 Instruction Type:Provider Instructions for Treatment How to access health informa tion online Indication:BMI 29.0-29.9,adult Start:06-Sep-2017 Instruction Type:Patient Education How to access health informa tion online - Detail Indication:BMI 29.0-29.9,adult Start:06-Sep-2017 Instruction Type:Patient Education Patient Instructions Indication:BMI 29.0-29.9,adult Start:06-Sep-2017 Instruction Type:Provider Instructions for Treatment How to access health informa tion online Indication:Non-smoker Start:07-Aug-2017 Instruction Type:Patient Education How to access health informa tion online - Detail Indication:Non-smoker Start:07-Aug-2017 Instruction Type:Patient Education Patient Instructions Indication:Non-smoker Start:07-Aug-2017 Instruction Type:Provider Instructions for Treatment Patient Instructions Indication:Skin lesion Start:31-Mar-2016 Instruction Type:Provider Instructions for Treatment Patient Instructions Indication:Annual Medicare Phyiscal WITHOUT abnormal findings (Renamed from Encounter for general adult medical examination without abnormal findings) Start:19-Feb-2016 Instruction Type:Provider Instructions for Treatment [facility] Work Phone: Instructions* Name Dates Details Patient Instructions Indication:Nonsmoker Start:05-Aug-2022 Instruction Type:Provider Instructions for Treatment How to Access Health Informa tion Online using Patient Portal and [employer] Indication:Nonsmoker Start:05-Aug-2022 Instruction Type:Patient Education Patient Instructions Indication:BMI 30.0-30.9,adult Start:08-Sep-2021 Instruction Type:Provider Instructions for Treatment How to Access Health Informa tion Online using Patient Portal and [employer] Indication:BMI 30.0-30.9,adult Start:08-Sep-2021 Instruction Type:Patient Education Patient Instructions Indication:Nonsmoker Start:21-Sep-2020 Instruction Type:Provider Instructions for Treatment Patient Instructions Indication:Nonsmoker Start:21-Sep-2020 Instruction Type:Provider Instructions for Treatment How to Access Health Informa tion Online using Patient Portal and [employer] Indication:Nonsmoker Start:21-Sep-2020 Instruction Type:Patient Education How to access health informa tion online Indication:BMI 30.0-30.9,adult Start:05-Feb-2020 Instruction Type:Patient Education How to access health informa tion online - Detail Indication:BMI 30.0-30.9,adult Start:05-Feb-2020 Instruction Type:Patient Education Patient Instructions Indication:BMI 30.0-30.9,adult Start:05-Feb-2020 Instruction Type:Provider Instructions for Treatment How to access health informa tion online Indication:BMI 30.0-30.9,adult Start:13-Jan-2020 Instruction Type:Patient Education How to access health informa tion online - Detail Indication:BMI 30.0-30.9,adult Start:13-Jan-2020 Instruction Type:Patient Education Patient Instructions Indication:BMI 30.0-30.9,adult Start:13-Jan-2020 Instruction Type:Provider Instructions for Treatment How to access health informa tion online Indication:Nonsmoker Start:12-Aug-2019 Instruction Type:Patient Education How to access health informa tion online - Detail Indication:Nonsmoker Start:12-Aug-2019 Instruction Type:Patient Education Patient Instructions Indication:Nonsmoker Start:12-Aug-2019 Instruction Type:Provider Instructions for Treatment How to access health informa tion online Indication:Nonsmoker Start:26-Jul-2019 Instruction Type:Patient Education How to access health informa tion online - Detail Indication:Nonsmoker Start:26-Jul-2019 Instruction Type:Patient Education Patient Instructions Indication:Nonsmoker Start:26-Jul-2019 Instruction Type:Provider Instructions for Treatment How to access health informa tion online Indication:Bloody discharge from right nipple Start:24-Dec-2018 Instruction Type:Patient Education How to access health informa tion online - Detail Indication:Bloody discharge from right nipple Start:24-Dec-2018 Instruction Type:Patient Education Patient Instructions Indication:Bloody discharge from right nipple Start:24-Dec-2018 Instruction Type:Provider Instructions for Treatment How to access health informa tion online Indication:BMI 29.0-29.9,adult Start:06-Sep-2017 Instruction Type:Patient Education How to access health informa tion online - Detail Indication:BMI 29.0-29.9,adult Start:06-Sep-2017 Instruction Type:Patient Education Patient Instructions Indication:BMI 29.0-29.9,adult Start:06-Sep-2017 Instruction Type:Provider Instructions for Treatment How to access health informa tion online Indication:Non-smoker Start:07-Aug-2017 Instruction Type:Patient Education How to access health informa tion online - Detail Indication:Non-smoker Start:07-Aug-2017 Instruction Type:Patient Education Patient Instructions Indication:Non-smoker Start:07-Aug-2017 Instruction Type:Provider Instructions for Treatment Patient Instructions Indication:Skin lesion Start:31-Mar-2016 Instruction Type:Provider Instructions for Treatment Patient Instructions Indication:Annual Medicare Phyiscal WITHOUT abnormal findings (Renamed from Encounter for general adult medical examination without abnormal findings) Start:19-Feb-2016 Instruction Type:Provider Instructions for Treatment [facility]; [facility] Work Phone: Instructions* Name Dates Details How to Access Health Informa tion Online using Patient Portal and [employer] Indication:Nonsmoker Start:18-Aug-2022 Instruction Type:Patient Education Patient Instructions Indication:Nonsmoker Start:18-Aug-2022 Instruction Type:Provider Instructions for Treatment Patient Instructions Indication:Nonsmoker Start:05-Aug-2022 Instruction Type:Provider Instructions for Treatment How to Access Health Informa tion Online using Patient Portal and [employer] Indication:Nonsmoker Start:05-Aug-2022 Instruction Type:Patient Education Patient Instructions Indication:BMI 30.0-30.9,adult Start:08-Sep-2021 Instruction Type:Provider Instructions for Treatment How to Access Health Informa tion Online using Patient Portal and [employer] Indication:BMI 30.0-30.9,adult Start:08-Sep-2021 Instruction Type:Patient Education Patient Instructions Indication:Nonsmoker Start:21-Sep-2020 Instruction Type:Provider Instructions for Treatment Patient Instructions Indication:Nonsmoker Start:21-Sep-2020 Instruction Type:Provider Instructions for Treatment How to Access Health Informa tion Online using Patient Portal and [employer] Indication:Nonsmoker Start:21-Sep-2020 Instruction Type:Patient Education How to access health informa tion online Indication:BMI 30.0-30.9,adult Start:05-Feb-2020 Instruction Type:Patient Education How to access health informa tion online - Detail Indication:BMI 30.0-30.9,adult Start:05-Feb-2020 Instruction Type:Patient Education Patient Instructions Indication:BMI 30.0-30.9,adult Start:05-Feb-2020 Instruction Type:Provider Instructions for Treatment How to access health informa tion online Indication:BMI 30.0-30.9,adult Start:13-Jan-2020 Instruction Type:Patient Education How to access health informa tion online - Detail Indication:BMI 30.0-30.9,adult Start:13-Jan-2020 Instruction Type:Patient Education Patient Instructions Indication:BMI 30.0-30.9,adult Start:13-Jan-2020 Instruction Type:Provider Instructions for Treatment How to access health informa tion online Indication:Nonsmoker Start:12-Aug-2019 Instruction Type:Patient Education How to access health informa tion online - Detail Indication:Nonsmoker Start:12-Aug-2019 Instruction Type:Patient Education Patient Instructions Indication:Nonsmoker Start:12-Aug-2019 Instruction Type:Provider Instructions for Treatment How to access health informa tion online Indication:Nonsmoker Start:26-Jul-2019 Instruction Type:Patient Education How to access health informa tion online - Detail Indication:Nonsmoker Start:26-Jul-2019 Instruction Type:Patient Education Patient Instructions Indication:Nonsmoker Start:26-Jul-2019 Instruction Type:Provider Instructions for Treatment How to access health informa tion online Indication:Bloody discharge from right nipple Start:24-Dec-2018 Instruction Type:Patient Education How to access health informa tion online - Detail Indication:Bloody discharge from right nipple Start:24-Dec-2018 Instruction Type:Patient Education Patient Instructions Indication:Bloody discharge from right nipple Start:24-Dec-2018 Instruction Type:Provider Instructions for Treatment How to access health informa tion online Indication:BMI 29.0-29.9,adult Start:06-Sep-2017 Instruction Type:Patient Education How to access health informa tion online - Detail Indication:BMI 29.0-29.9,adult Start:06-Sep-2017 Instruction Type:Patient Education Patient Instructions Indication:BMI 29.0-29.9,adult Start:06-Sep-2017 Instruction Type:Provider Instructions for Treatment How to access health informa tion online Indication:Non-smoker Start:07-Aug-2017 Instruction Type:Patient Education How to access health informa tion online - Detail Indication:Non-smoker Start:07-Aug-2017 Instruction Type:Patient Education Patient Instructions Indication:Non-smoker Start:07-Aug-2017 Instruction Type:Provider Instructions for Treatment Patient Instructions Indication:Skin lesion Start:31-Mar-2016 Instruction Type:Provider Instructions for Treatment Patient Instructions Indication:Annual Medicare Phyiscal WITHOUT abnormal findings (Renamed from Encounter for general adult medical examination without abnormal findings) Start:19-Feb-2016 Instruction Type:Provider Instructions for Treatment [facility] Work Phone: Family History Unknown Family Member Name Dates Details Diabetes Mellitus Comments:Father. Sister. Status:Active Hypercholesterolemia Comments:Brother. Status:Active Hypertension Comments:Father. Sister. Status:Active Unknown Family Member Name Dates Details Diabetes Mellitus Comments:Father. Sister. Status:Active Hypercholesterolemia Comments:Brother. Status:Active Hypertension Comments:Father. Sister. Status:Active Unknown Family Member Name Dates Details Diabetes Mellitus Comments:Father. Sister. Status:Active Hypercholesterolemia Comments:Brother. Status:Active Hypertension Comments:Father. Sister. Status:Active Unknown Family Member Name Dates Details Diabetes Mellitus Comments:Father. Sister. Status:Active Hypercholesterolemia Comments:Brother. Status:Active Hypertension Comments:Father. Sister. Status:Active Unknown Family Member Name Dates Details Diabetes Mellitus Comments:Father. Sister. Status:Active Hypercholesterolemia Comments:Brother. Status:Active Hypertension Comments:Father. Sister. Status:Active Unknown Family Member Name Dates Details Diabetes Mellitus Comments:Father. Sister. Status:Active Hypercholesterolemia Comments:Brother. Status:Active Hypertension Comments:Father. Sister. Status:Active Unknown Family Member Name Dates Details Diabetes Mellitus Comments:Father. Sister. Status:Active Hypercholesterolemia Comments:Brother. Status:Active Hypertension Comments:Father. Sister. Status:Active Unknown Family Member Name Dates Details Diabetes Mellitus Comments:Father. Sister. Status:Active Hypercholesterolemia Comments:Brother. Status:Active Hypertension Comments:Father. Sister. Status:Active Unknown Family Member Name Dates Details Diabetes Mellitus Comments:Father. Sister. Status:Active Hypercholesterolemia Comments:Brother. Status:Active Hypertension Comments:Father. Sister. Status:Active Unknown Family Member Name Dates Details Diabetes Mellitus Comments:Father. Sister. Status:Active Hypercholesterolemia Comments:Brother. Status:Active Hypertension Comments:Father. Sister. Status:Active Unknown Family Member Name Dates Details Diabetes Mellitus Comments:Father. Sister. Status:Active Hypercholesterolemia Comments:Brother. Status:Active Hypertension Comments:Father. Sister. Status:Active Unknown Family Member Name Dates Details Diabetes Mellitus Comments:Father. Sister. Status:Active Hypercholesterolemia Comments:Brother. Status:Active Hypertension Comments:Father. Sister. Status:Active Unknown Family Member Name Dates Details Diabetes Mellitus Comments:Father. Sister. Status:Active Hypercholesterolemia Comments:Brother. Status:Active Hypertension Comments:Father. Sister. Status:Active Unknown Family Member Name Dates Details Diabetes Mellitus Comments:Father. Sister. Status:Active Hypercholesterolemia Comments:Brother. Status:Active Hypertension Comments:Father. Sister. Status:Active Unknown Family Member Name Dates Details Diabetes Mellitus Comments:Father. Sister. Status:Active Hypercholesterolemia Comments:Brother. Status:Active Hypertension Comments:Father. Sister. Status:Active Unknown Family Member Name Dates Details Diabetes Mellitus Comments:Father. Sister. Status:Active Hypercholesterolemia Comments:Brother. Status:Active Hypertension Comments:Father. Sister. Status:Active Unknown Family Member Name Dates Details Diabetes Mellitus Comments:Father. Sister. Status:Active Hypercholesterolemia Comments:Brother. Status:Active Hypertension Comments:Father. Sister. Status:Active Unknown Family Member Name Dates Details Diabetes Mellitus Comments:Father. Sister. Status:Active Hypercholesterolemia Comments:Brother. Status:Active Hypertension Comments:Father. Sister. Status:Active Unknown Family Member Name Dates Details Diabetes Mellitus Comments:Father. Sister. Status:Active Hypercholesterolemia Comments:Brother. Status:Active Hypertension Comments:Father. Sister. Status:Active Instructions Name Dates Details How to access health informa tion online Indication:Bloody discharge from right nipple Start:24-Dec-2018 Instruction Type:Patient Education How to access health informa tion online - Detail Indication:Bloody discharge from right nipple Start:24-Dec-2018 Instruction Type:Patient Education Patient Instructions Indication:Bloody discharge from right nipple Start:24-Dec-2018 Instruction Type:Provider Instructions for Treatment How to access health informa tion online Indication:BMI 29.0-29.9,adult Start:06-Sep-2017 Instruction Type:Patient Education How to access health informa tion online - Detail Indication:BMI 29.0-29.9,adult Start:06-Sep-2017 Instruction Type:Patient Education Patient Instructions Indication:BMI 29.0-29.9,adult Start:06-Sep-2017 Instruction Type:Provider Instructions for Treatment How to access health informa tion online Indication:Non-smoker Start:07-Aug-2017 Instruction Type:Patient Education How to access health informa tion online - Detail Indication:Non-smoker Start:07-Aug-2017 Instruction Type:Patient Education Patient Instructions Indication:Non-smoker Start:07-Aug-2017 Instruction Type:Provider Instructions for Treatment Patient Instructions Indication:Skin lesion Start:31-Mar-2016 Instruction Type:Provider Instructions for Treatment Patient Instructions Indication:Annual Medicare [employer] WITHOUT abnormal findings (Renamed from Encounter for general adult medical examination without abnormal findings) Start:19-Feb-2016 Instruction Type:Provider Instructions for Treatment Name Dates Details How to access health informa tion online Indication:Bloody discharge from right nipple Start:24-Dec-2018 Instruction Type:Patient Education How to access health informa tion online - Detail Indication:Bloody discharge from right nipple Start:24-Dec-2018 Instruction Type:Patient Education Patient Instructions Indication:Bloody discharge from right nipple Start:24-Dec-2018 Instruction Type:Provider Instructions for Treatment How to access health informa tion online Indication:BMI 29.0-29.9,adult Start:06-Sep-2017 Instruction Type:Patient Education How to access health informa tion online - Detail Indication:BMI 29.0-29.9,adult Start:06-Sep-2017 Instruction Type:Patient Education Patient Instructions Indication:BMI 29.0-29.9,adult Start:06-Sep-2017 Instruction Type:Provider Instructions for Treatment How to access health informa tion online Indication:Non-smoker Start:07-Aug-2017 Instruction Type:Patient Education How to access health informa tion online - Detail Indication:Non-smoker Start:07-Aug-2017 Instruction Type:Patient Education Patient Instructions Indication:Non-smoker Start:07-Aug-2017 Instruction Type:Provider Instructions for Treatment Patient Instructions Indication:Skin lesion Start:31-Mar-2016 Instruction Type:Provider Instructions for Treatment Patient Instructions Indication:Annual Medicare [employer] WITHOUT abnormal findings (Renamed from Encounter for general adult medical examination without abnormal findings) Start:19-Feb-2016 Instruction Type:Provider Instructions for Treatment Name Dates Details How to access health informa tion online Indication:Bloody discharge from right nipple Start:24-Dec-2018 Instruction Type:Patient Education How to access health informa tion online - Detail Indication:Bloody discharge from right nipple Start:24-Dec-2018 Instruction Type:Patient Education Patient Instructions Indication:Bloody discharge from right nipple Start:24-Dec-2018 Instruction Type:Provider Instructions for Treatment How to access health informa tion online Indication:BMI 29.0-29.9,adult Start:06-Sep-2017 Instruction Type:Patient Education How to access health informa tion online - Detail Indication:BMI 29.0-29.9,adult Start:06-Sep-2017 Instruction Type:Patient Education Patient Instructions Indication:BMI 29.0-29.9,adult Start:06-Sep-2017 Instruction Type:Provider Instructions for Treatment How to access health informa tion online Indication:Non-smoker Start:07-Aug-2017 Instruction Type:Patient Education How to access health informa tion online - Detail Indication:Non-smoker Start:07-Aug-2017 Instruction Type:Patient Education Patient Instructions Indication:Non-smoker Start:07-Aug-2017 Instruction Type:Provider Instructions for Treatment Patient Instructions Indication:Skin lesion Start:31-Mar-2016 Instruction Type:Provider Instructions for Treatment Patient Instructions Indication:Annual Medicare [employer] WITHOUT abnormal findings (Renamed from Encounter for general adult medical examination without abnormal findings) Start:19-Feb-2016 Instruction Type:Provider Instructions for Treatment Name Dates Details How to access health informa tion online Indication:BMI 30.0-30.9,adult Start:13-Jan-2020 Instruction Type:Patient Education How to access health informa tion online - Detail Indication:BMI 30.0-30.9,adult Start:13-Jan-2020 Instruction Type:Patient Education Patient Instructions Indication:BMI 30.0-30.9,adult Start:13-Jan-2020 Instruction Type:Provider Instructions for Treatment How to access health informa tion online Indication:Nonsmoker Start:12-Aug-2019 Instruction Type:Patient Education How to access health informa tion online - Detail Indication:Nonsmoker Start:12-Aug-2019 Instruction Type:Patient Education Patient Instructions Indication:Nonsmoker Start:12-Aug-2019 Instruction Type:Provider Instructions for Treatment How to access health informa tion online Indication:Nonsmoker Start:26-Jul-2019 Instruction Type:Patient Education How to access health informa tion online - Detail Indication:Nonsmoker Start:26-Jul-2019 Instruction Type:Patient Education Patient Instructions Indication:Nonsmoker Start:26-Jul-2019 Instruction Type:Provider Instructions for Treatment How to access health informa tion online Indication:Bloody discharge from right nipple Start:24-Dec-2018 Instruction Type:Patient Education How to access health informa tion online - Detail Indication:Bloody discharge from right nipple Start:24-Dec-2018 Instruction Type:Patient Education Patient Instructions Indication:Bloody discharge from right nipple Start:24-Dec-2018 Instruction Type:Provider Instructions for Treatment How to access health informa tion online Indication:BMI 29.0-29.9,adult Start:06-Sep-2017 Instruction Type:Patient Education How to access health informa tion online - Detail Indication:BMI 29.0-29.9,adult Start:06-Sep-2017 Instruction Type:Patient Education Patient Instructions Indication:BMI 29.0-29.9,adult Start:06-Sep-2017 Instruction Type:Provider Instructions for Treatment How to access health informa tion online Indication:Non-smoker Start:07-Aug-2017 Instruction Type:Patient Education How to access health informa tion online - Detail Indication:Non-smoker Start:07-Aug-2017 Instruction Type:Patient Education Patient Instructions Indication:Non-smoker Start:07-Aug-2017 Instruction Type:Provider Instructions for Treatment Patient Instructions Indication:Skin lesion Start:31-Mar-2016 Instruction Type:Provider Instructions for Treatment Patient Instructions Indication:Annual Medicare [employer] WITHOUT abnormal findings (Renamed from Encounter for general adult medical examination without abnormal findings) Start:19-Feb-2016 Instruction Type:Provider Instructions for Treatment Name Dates Details How to access health informa tion online Indication:BMI 30.0-30.9,adult Start:13-Jan-2020 Instruction Type:Patient Education How to access health informa tion online - Detail Indication:BMI 30.0-30.9,adult Start:13-Jan-2020 Instruction Type:Patient Education Patient Instructions Indication:BMI 30.0-30.9,adult Start:13-Jan-2020 Instruction Type:Provider Instructions for Treatment How to access health informa tion online Indication:Nonsmoker Start:12-Aug-2019 Instruction Type:Patient Education How to access health informa tion online - Detail Indication:Nonsmoker Start:12-Aug-2019 Instruction Type:Patient Education Patient Instructions Indication:Nonsmoker Start:12-Aug-2019 Instruction Type:Provider Instructions for Treatment How to access health informa tion online Indication:Nonsmoker Start:26-Jul-2019 Instruction Type:Patient Education How to access health informa tion online - Detail Indication:Nonsmoker Start:26-Jul-2019 Instruction Type:Patient Education Patient Instructions Indication:Nonsmoker Start:26-Jul-2019 Instruction Type:Provider Instructions for Treatment How to access health informa tion online Indication:Bloody discharge from right nipple Start:24-Dec-2018 Instruction Type:Patient Education How to access health informa tion online - Detail Indication:Bloody discharge from right nipple Start:24-Dec-2018 Instruction Type:Patient Education Patient Instructions Indication:Bloody discharge from right nipple Start:24-Dec-2018 Instruction Type:Provider Instructions for Treatment How to access health informa tion online Indication:BMI 29.0-29.9,adult Start:06-Sep-2017 Instruction Type:Patient Education How to access health informa tion online - Detail Indication:BMI 29.0-29.9,adult Start:06-Sep-2017 Instruction Type:Patient Education Patient Instructions Indication:BMI 29.0-29.9,adult Start:06-Sep-2017 Instruction Type:Provider Instructions for Treatment How to access health informa tion online Indication:Non-smoker Start:07-Aug-2017 Instruction Type:Patient Education How to access health informa tion online - Detail Indication:Non-smoker Start:07-Aug-2017 Instruction Type:Patient Education Patient Instructions Indication:Non-smoker Start:07-Aug-2017 Instruction Type:Provider Instructions for Treatment Patient Instructions Indication:Skin lesion Start:31-Mar-2016 Instruction Type:Provider Instructions for Treatment Patient Instructions Indication:Annual Medicare [employer] WITHOUT abnormal findings (Renamed from Encounter for general adult medical examination without abnormal findings) Start:19-Feb-2016 Instruction Type:Provider Instructions for Treatment Name Dates Details How to access health informa tion online Indication:BMI 30.0-30.9,adult Start:13-Jan-2020 Instruction Type:Patient Education How to access health informa tion online - Detail Indication:BMI 30.0-30.9,adult Start:13-Jan-2020 Instruction Type:Patient Education Patient Instructions Indication:BMI 30.0-30.9,adult Start:13-Jan-2020 Instruction Type:Provider Instructions for Treatment How to access health informa tion online Indication:Nonsmoker Start:12-Aug-2019 Instruction Type:Patient Education How to access health informa tion online - Detail Indication:Nonsmoker Start:12-Aug-2019 Instruction Type:Patient Education Patient Instructions Indication:Nonsmoker Start:12-Aug-2019 Instruction Type:Provider Instructions for Treatment How to access health informa tion online Indication:Nonsmoker Start:26-Jul-2019 Instruction Type:Patient Education How to access health informa tion online - Detail Indication:Nonsmoker Start:26-Jul-2019 Instruction Type:Patient Education Patient Instructions Indication:Nonsmoker Start:26-Jul-2019 Instruction Type:Provider Instructions for Treatment How to access health informa tion online Indication:Bloody discharge from right nipple Start:24-Dec-2018 Instruction Type:Patient Education How to access health informa tion online - Detail Indication:Bloody discharge from right nipple Start:24-Dec-2018 Instruction Type:Patient Education Patient Instructions Indication:Bloody discharge from right nipple Start:24-Dec-2018 Instruction Type:Provider Instructions for Treatment How to access health informa tion online Indication:BMI 29.0-29.9,adult Start:06-Sep-2017 Instruction Type:Patient Education How to access health informa tion online - Detail Indication:BMI 29.0-29.9,adult Start:06-Sep-2017 Instruction Type:Patient Education Patient Instructions Indication:BMI 29.0-29.9,adult Start:06-Sep-2017 Instruction Type:Provider Instructions for Treatment How to access health informa tion online Indication:Non-smoker Start:07-Aug-2017 Instruction Type:Patient Education How to access health informa tion online - Detail Indication:Non-smoker Start:07-Aug-2017 Instruction Type:Patient Education Patient Instructions Indication:Non-smoker Start:07-Aug-2017 Instruction Type:Provider Instructions for Treatment Patient Instructions Indication:Skin lesion Start:31-Mar-2016 Instruction Type:Provider Instructions for Treatment Patient Instructions Indication:Annual Medicare [employer] WITHOUT abnormal findings (Renamed from Encounter for general adult medical examination without abnormal findings) Start:19-Feb-2016 Instruction Type:Provider Instructions for Treatment Name Dates Details How to access health informa tion online Indication:BMI 30.0-30.9,adult Start:05-Feb-2020 Instruction Type:Patient Education How to access health informa tion online - Detail Indication:BMI 30.0-30.9,adult Start:05-Feb-2020 Instruction Type:Patient Education Patient Instructions Indication:BMI 30.0-30.9,adult Start:05-Feb-2020 Instruction Type:Provider Instructions for Treatment How to access health informa tion online Indication:BMI 30.0-30.9,adult Start:13-Jan-2020 Instruction Type:Patient Education How to access health informa tion online - Detail Indication:BMI 30.0-30.9,adult Start:13-Jan-2020 Instruction Type:Patient Education Patient Instructions Indication:BMI 30.0-30.9,adult Start:13-Jan-2020 Instruction Type:Provider Instructions for Treatment How to access health informa tion online Indication:Nonsmoker Start:12-Aug-2019 Instruction Type:Patient Education How to access health informa tion online - Detail Indication:Nonsmoker Start:12-Aug-2019 Instruction Type:Patient Education Patient Instructions Indication:Nonsmoker Start:12-Aug-2019 Instruction Type:Provider Instructions for Treatment How to access health informa tion online Indication:Nonsmoker Start:26-Jul-2019 Instruction Type:Patient Education How to access health informa tion online - Detail Indication:Nonsmoker Start:26-Jul-2019 Instruction Type:Patient Education Patient Instructions Indication:Nonsmoker Start:26-Jul-2019 Instruction Type:Provider Instructions for Treatment How to access health informa tion online Indication:Bloody discharge from right nipple Start:24-Dec-2018 Instruction Type:Patient Education How to access health informa tion online - Detail Indication:Bloody discharge from right nipple Start:24-Dec-2018 Instruction Type:Patient Education Patient Instructions Indication:Bloody discharge from right nipple Start:24-Dec-2018 Instruction Type:Provider Instructions for Treatment How to access health informa tion online Indication:BMI 29.0-29.9,adult Start:06-Sep-2017 Instruction Type:Patient Education How to access health informa tion online - Detail Indication:BMI 29.0-29.9,adult Start:06-Sep-2017 Instruction Type:Patient Education Patient Instructions Indication:BMI 29.0-29.9,adult Start:06-Sep-2017 Instruction Type:Provider Instructions for Treatment How to access health informa tion online Indication:Non-smoker Start:07-Aug-2017 Instruction Type:Patient Education How to access health informa tion online - Detail Indication:Non-smoker Start:07-Aug-2017 Instruction Type:Patient Education Patient Instructions Indication:Non-smoker Start:07-Aug-2017 Instruction Type:Provider Instructions for Treatment Patient Instructions Indication:Skin lesion Start:31-Mar-2016 Instruction Type:Provider Instructions for Treatment Patient Instructions Indication:Annual Medicare [employer] WITHOUT abnormal findings (Renamed from Encounter for general adult medical examination without abnormal findings) Start:19-Feb-2016 Instruction Type:Provider Instructions for Treatment Name Dates Details How to access health informa tion online Indication:BMI 30.0-30.9,adult Start:05-Feb-2020 Instruction Type:Patient Education How to access health informa tion online - Detail Indication:BMI 30.0-30.9,adult Start:05-Feb-2020 Instruction Type:Patient Education Patient Instructions Indication:BMI 30.0-30.9,adult Start:05-Feb-2020 Instruction Type:Provider Instructions for Treatment How to access health informa tion online Indication:BMI 30.0-30.9,adult Start:13-Jan-2020 Instruction Type:Patient Education How to access health informa tion online - Detail Indication:BMI 30.0-30.9,adult Start:13-Jan-2020 Instruction Type:Patient Education Patient Instructions Indication:BMI 30.0-30.9,adult Start:13-Jan-2020 Instruction Type:Provider Instructions for Treatment How to access health informa tion online Indication:Nonsmoker Start:12-Aug-2019 Instruction Type:Patient Education How to access health informa tion online - Detail Indication:Nonsmoker Start:12-Aug-2019 Instruction Type:Patient Education Patient Instructions Indication:Nonsmoker Start:12-Aug-2019 Instruction Type:Provider Instructions for Treatment How to access health informa tion online Indication:Nonsmoker Start:26-Jul-2019 Instruction Type:Patient Education How to access health informa tion online - Detail Indication:Nonsmoker Start:26-Jul-2019 Instruction Type:Patient Education Patient Instructions Indication:Nonsmoker Start:26-Jul-2019 Instruction Type:Provider Instructions for Treatment How to access health informa tion online Indication:Bloody discharge from right nipple Start:24-Dec-2018 Instruction Type:Patient Education How to access health informa tion online - Detail Indication:Bloody discharge from right nipple Start:24-Dec-2018 Instruction Type:Patient Education Patient Instructions Indication:Bloody discharge from right nipple Start:24-Dec-2018 Instruction Type:Provider Instructions for Treatment How to access health informa tion online Indication:BMI 29.0-29.9,adult Start:06-Sep-2017 Instruction Type:Patient Education How to access health informa tion online - Detail Indication:BMI 29.0-29.9,adult Start:06-Sep-2017 Instruction Type:Patient Education Patient Instructions Indication:BMI 29.0-29.9,adult Start:06-Sep-2017 Instruction Type:Provider Instructions for Treatment How to access health informa tion online Indication:Non-smoker Start:07-Aug-2017 Instruction Type:Patient Education How to access health informa tion online - Detail Indication:Non-smoker Start:07-Aug-2017 Instruction Type:Patient Education Patient Instructions Indication:Non-smoker Start:07-Aug-2017 Instruction Type:Provider Instructions for Treatment Patient Instructions Indication:Skin lesion Start:31-Mar-2016 Instruction Type:Provider Instructions for Treatment Patient Instructions Indication:Annual Medicare [employer] WITHOUT abnormal findings (Renamed from Encounter for general adult medical examination without abnormal findings) Start:19-Feb-2016 Instruction Type:Provider Instructions for Treatment Name Dates Details How to access health informa tion online Indication:BMI 30.0-30.9,adult Start:05-Feb-2020 Instruction Type:Patient Education How to access health informa tion online - Detail Indication:BMI 30.0-30.9,adult Start:05-Feb-2020 Instruction Type:Patient Education Patient Instructions Indication:BMI 30.0-30.9,adult Start:05-Feb-2020 Instruction Type:Provider Instructions for Treatment How to access health informa tion online Indication:BMI 30.0-30.9,adult Start:13-Jan-2020 Instruction Type:Patient Education How to access health informa tion online - Detail Indication:BMI 30.0-30.9,adult Start:13-Jan-2020 Instruction Type:Patient Education Patient Instructions Indication:BMI 30.0-30.9,adult Start:13-Jan-2020 Instruction Type:Provider Instructions for Treatment How to access health informa tion online Indication:Nonsmoker Start:12-Aug-2019 Instruction Type:Patient Education How to access health informa tion online - Detail Indication:Nonsmoker Start:12-Aug-2019 Instruction Type:Patient Education Patient Instructions Indication:Nonsmoker Start:12-Aug-2019 Instruction Type:Provider Instructions for Treatment How to access health informa tion online Indication:Nonsmoker Start:26-Jul-2019 Instruction Type:Patient Education How to access health informa tion online - Detail Indication:Nonsmoker Start:26-Jul-2019 Instruction Type:Patient Education Patient Instructions Indication:Nonsmoker Start:26-Jul-2019 Instruction Type:Provider Instructions for Treatment How to access health informa tion online Indication:Bloody discharge from right nipple Start:24-Dec-2018 Instruction Type:Patient Education How to access health informa tion online - Detail Indication:Bloody discharge from right nipple Start:24-Dec-2018 Instruction Type:Patient Education Patient Instructions Indication:Bloody discharge from right nipple Start:24-Dec-2018 Instruction Type:Provider Instructions for Treatment How to access health informa tion online Indication:BMI 29.0-29.9,adult Start:06-Sep-2017 Instruction Type:Patient Education How to access health informa tion online - Detail Indication:BMI 29.0-29.9,adult Start:06-Sep-2017 Instruction Type:Patient Education Patient Instructions Indication:BMI 29.0-29.9,adult Start:06-Sep-2017 Instruction Type:Provider Instructions for Treatment How to access health informa tion online Indication:Non-smoker Start:07-Aug-2017 Instruction Type:Patient Education How to access health informa tion online - Detail Indication:Non-smoker Start:07-Aug-2017 Instruction Type:Patient Education Patient Instructions Indication:Non-smoker Start:07-Aug-2017 Instruction Type:Provider Instructions for Treatment Patient Instructions Indication:Skin lesion Start:31-Mar-2016 Instruction Type:Provider Instructions for Treatment Patient Instructions Indication:Annual Medicare [employer] WITHOUT abnormal findings (Renamed from Encounter for general adult medical examination without abnormal findings) Start:19-Feb-2016 Instruction Type:Provider Instructions for Treatment Name Dates Details How to access health informa tion online Indication:BMI 30.0-30.9,adult Start:05-Feb-2020 Instruction Type:Patient Education How to access health informa tion online - Detail Indication:BMI 30.0-30.9,adult Start:05-Feb-2020 Instruction Type:Patient Education Patient Instructions Indication:BMI 30.0-30.9,adult Start:05-Feb-2020 Instruction Type:Provider Instructions for Treatment How to access health informa tion online Indication:BMI 30.0-30.9,adult Start:13-Jan-2020 Instruction Type:Patient Education How to access health informa tion online - Detail Indication:BMI 30.0-30.9,adult Start:13-Jan-2020 Instruction Type:Patient Education Patient Instructions Indication:BMI 30.0-30.9,adult Start:13-Jan-2020 Instruction Type:Provider Instructions for Treatment How to access health informa tion online Indication:Nonsmoker Start:12-Aug-2019 Instruction Type:Patient Education How to access health informa tion online - Detail Indication:Nonsmoker Start:12-Aug-2019 Instruction Type:Patient Education Patient Instructions Indication:Nonsmoker Start:12-Aug-2019 Instruction Type:Provider Instructions for Treatment How to access health informa tion online Indication:Nonsmoker Start:26-Jul-2019 Instruction Type:Patient Education How to access health informa tion online - Detail Indication:Nonsmoker Start:26-Jul-2019 Instruction Type:Patient Education Patient Instructions Indication:Nonsmoker Start:26-Jul-2019 Instruction Type:Provider Instructions for Treatment How to access health informa tion online Indication:Bloody discharge from right nipple Start:24-Dec-2018 Instruction Type:Patient Education How to access health informa tion online - Detail Indication:Bloody discharge from right nipple Start:24-Dec-2018 Instruction Type:Patient Education Patient Instructions Indication:Bloody discharge from right nipple Start:24-Dec-2018 Instruction Type:Provider Instructions for Treatment How to access health informa tion online Indication:BMI 29.0-29.9,adult Start:06-Sep-2017 Instruction Type:Patient Education How to access health informa tion online - Detail Indication:BMI 29.0-29.9,adult Start:06-Sep-2017 Instruction Type:Patient Education Patient Instructions Indication:BMI 29.0-29.9,adult Start:06-Sep-2017 Instruction Type:Provider Instructions for Treatment How to access health informa tion online Indication:Non-smoker Start:07-Aug-2017 Instruction Type:Patient Education How to access health informa tion online - Detail Indication:Non-smoker Start:07-Aug-2017 Instruction Type:Patient Education Patient Instructions Indication:Non-smoker Start:07-Aug-2017 Instruction Type:Provider Instructions for Treatment Patient Instructions Indication:Skin lesion Start:31-Mar-2016 Instruction Type:Provider Instructions for Treatment Patient Instructions Indication:Annual Medicare [employer] WITHOUT abnormal findings (Renamed from Encounter for general adult medical examination without abnormal findings) Start:19-Feb-2016 Instruction Type:Provider Instructions for Treatment Name Dates Details How to access health informa tion online Indication:Bloody discharge from right nipple Start:24-Dec-2018 Instruction Type:Patient Education How to access health informa tion online - Detail Indication:Bloody discharge from right nipple Start:24-Dec-2018 Instruction Type:Patient Education Patient Instructions Indication:Bloody discharge from right nipple Start:24-Dec-2018 Instruction Type:Provider Instructions for Treatment How to access health informa tion online Indication:BMI 29.0-29.9,adult Start:06-Sep-2017 Instruction Type:Patient Education How to access health informa tion online - Detail Indication:BMI 29.0-29.9,adult Start:06-Sep-2017 Instruction Type:Patient Education Patient Instructions Indication:BMI 29.0-29.9,adult Start:06-Sep-2017 Instruction Type:Provider Instructions for Treatment How to access health informa tion online Indication:Non-smoker Start:07-Aug-2017 Instruction Type:Patient Education How to access health informa tion online - Detail Indication:Non-smoker Start:07-Aug-2017 Instruction Type:Patient Education Patient Instructions Indication:Non-smoker Start:07-Aug-2017 Instruction Type:Provider Instructions for Treatment Patient Instructions Indication:Skin lesion Start:31-Mar-2016 Instruction Type:Provider Instructions for Treatment Patient Instructions Indication:Annual Medicare Phyiscal WITHOUT abnormal findings (Renamed from Encounter for general adult medical examination without abnormal findings) Start:19-Feb-2016 Instruction Type:Provider Instructions for Treatment Name Dates Details Patient Instructions Indication:Nonsmoker Start:21-Sep-2020 Instruction Type:Provider Instructions for Treatment How to Access Health Informa tion Online using Patient Portal and [employer] Apps Indication:Nonsmoker Start:21-Sep-2020 Instruction Type:Patient Education How to access health informa tion online Indication:BMI 30.0-30.9,adult Start:05-Feb-2020 Instruction Type:Patient Education How to access health informa tion online - Detail Indication:BMI 30.0-30.9,adult Start:05-Feb-2020 Instruction Type:Patient Education Patient Instructions Indication:BMI 30.0-30.9,adult Start:05-Feb-2020 Instruction Type:Provider Instructions for Treatment How to access health informa tion online Indication:BMI 30.0-30.9,adult Start:13-Jan-2020 Instruction Type:Patient Education How to access health informa tion online - Detail Indication:BMI 30.0-30.9,adult Start:13-Jan-2020 Instruction Type:Patient Education Patient Instructions Indication:BMI 30.0-30.9,adult Start:13-Jan-2020 Instruction Type:Provider Instructions for Treatment How to access health informa tion online Indication:Nonsmoker Start:12-Aug-2019 Instruction Type:Patient Education How to access health informa tion online - Detail Indication:Nonsmoker Start:12-Aug-2019 Instruction Type:Patient Education Patient Instructions Indication:Nonsmoker Start:12-Aug-2019 Instruction Type:Provider Instructions for Treatment How to access health informa tion online Indication:Nonsmoker Start:26-Jul-2019 Instruction Type:Patient Education How to access health informa tion online - Detail Indication:Nonsmoker Start:26-Jul-2019 Instruction Type:Patient Education Patient Instructions Indication:Nonsmoker Start:26-Jul-2019 Instruction Type:Provider Instructions for Treatment How to access health informa tion online Indication:Bloody discharge from right nipple Start:24-Dec-2018 Instruction Type:Patient Education How to access health informa tion online - Detail Indication:Bloody discharge from right nipple Start:24-Dec-2018 Instruction Type:Patient Education Patient Instructions Indication:Bloody discharge from right nipple Start:24-Dec-2018 Instruction Type:Provider Instructions for Treatment How to access health informa tion online Indication:BMI 29.0-29.9,adult Start:06-Sep-2017 Instruction Type:Patient Education How to access health informa tion online - Detail Indication:BMI 29.0-29.9,adult Start:06-Sep-2017 Instruction Type:Patient Education Patient Instructions Indication:BMI 29.0-29.9,adult Start:06-Sep-2017 Instruction Type:Provider Instructions for Treatment How to access health informa tion online Indication:Non-smoker Start:07-Aug-2017 Instruction Type:Patient Education How to access health informa tion online - Detail Indication:Non-smoker Start:07-Aug-2017 Instruction Type:Patient Education Patient Instructions Indication:Non-smoker Start:07-Aug-2017 Instruction Type:Provider Instructions for Treatment Patient Instructions Indication:Skin lesion Start:31-Mar-2016 Instruction Type:Provider Instructions for Treatment Patient Instructions Indication:Annual Medicare Phyiscal WITHOUT abnormal findings (Renamed from Encounter for general adult medical examination without abnormal findings) Start:19-Feb-2016 Instruction Type:Provider Instructions for Treatment Name Dates Details Patient Instructions Indication:Nonsmoker Start:21-Sep-2020 Instruction Type:Provider Instructions for Treatment How to Access Health Informa tion Online using Patient Portal and [employer] Apps Indication:Nonsmoker Start:21-Sep-2020 Instruction Type:Patient Education How to access health informa tion online Indication:BMI 30.0-30.9,adult Start:05-Feb-2020 Instruction Type:Patient Education How to access health informa tion online - Detail Indication:BMI 30.0-30.9,adult Start:05-Feb-2020 Instruction Type:Patient Education Patient Instructions Indication:BMI 30.0-30.9,adult Start:05-Feb-2020 Instruction Type:Provider Instructions for Treatment How to access health informa tion online Indication:BMI 30.0-30.9,adult Start:13-Jan-2020 Instruction Type:Patient Education How to access health informa tion online - Detail Indication:BMI 30.0-30.9,adult Start:13-Jan-2020 Instruction Type:Patient Education Patient Instructions Indication:BMI 30.0-30.9,adult Start:13-Jan-2020 Instruction Type:Provider Instructions for Treatment How to access health informa tion online Indication:Nonsmoker Start:12-Aug-2019 Instruction Type:Patient Education How to access health informa tion online - Detail Indication:Nonsmoker Start:12-Aug-2019 Instruction Type:Patient Education Patient Instructions Indication:Nonsmoker Start:12-Aug-2019 Instruction Type:Provider Instructions for Treatment How to access health informa tion online Indication:Nonsmoker Start:26-Jul-2019 Instruction Type:Patient Education How to access health informa tion online - Detail Indication:Nonsmoker Start:26-Jul-2019 Instruction Type:Patient Education Patient Instructions Indication:Nonsmoker Start:26-Jul-2019 Instruction Type:Provider Instructions for Treatment How to access health informa tion online Indication:Bloody discharge from right nipple Start:24-Dec-2018 Instruction Type:Patient Education How to access health informa tion online - Detail Indication:Bloody discharge from right nipple Start:24-Dec-2018 Instruction Type:Patient Education Patient Instructions Indication:Bloody discharge from right nipple Start:24-Dec-2018 Instruction Type:Provider Instructions for Treatment How to access health informa tion online Indication:BMI 29.0-29.9,adult Start:06-Sep-2017 Instruction Type:Patient Education How to access health informa tion online - Detail Indication:BMI 29.0-29.9,adult Start:06-Sep-2017 Instruction Type:Patient Education Patient Instructions Indication:BMI 29.0-29.9,adult Start:06-Sep-2017 Instruction Type:Provider Instructions for Treatment How to access health informa tion online Indication:Non-smoker Start:07-Aug-2017 Instruction Type:Patient Education How to access health informa tion online - Detail Indication:Non-smoker Start:07-Aug-2017 Instruction Type:Patient Education Patient Instructions Indication:Non-smoker Start:07-Aug-2017 Instruction Type:Provider Instructions for Treatment Patient Instructions Indication:Skin lesion Start:31-Mar-2016 Instruction Type:Provider Instructions for Treatment Patient Instructions Indication:Annual Medicare Phyiscal WITHOUT abnormal findings (Renamed from Encounter for general adult medical examination without abnormal findings) Start:19-Feb-2016 Instruction Type:Provider Instructions for Treatment Summary Purpose Advance Directives No Advanced Directives Records FoundNo Advanced Directives Records Found Additional Source Comments INFORMATION SOURCE (unrecogn ized section and content) DATE CREATED AUTHOR AUTHOR'S ORGANIZ ATION 11/18/2022 [facility] Reason for Visit (unrecogniz ed section and content) Reason Comments f/u ear tube out Est pt Reason Comments Follow-up 6 month ear check Care Teams (unrecognized sec tion and content) Social Media Community Manager Relationship Specialty Start Date End Date Mera Hollingsworth DO [id number] [id number] PCP - General Internal Medicine 08/31/22 FOR RECORDS PERTAINING TO PATIENTS WHO ARE OR HAVE BEEN ENROLLED IN A CHEMICAL DEPENDENCY/SUBSTANCEABUSE PROGRAM, SOME INFORMATION MAY BE OMITTED. This clinical summary was aggregated from multiple sources. Caution should be exercised in using it in the provision of clinical care. This summary normalizes information from multiple sources, and as a consequence, information in this document may materially change the coding, format and clinical context of patient data. In addition, data may be omitted in some cases. CLINICAL DECISIONS SHOULD BE BASED ON THE PRIMARY CLINICAL RECORDS. [facility]. provides no warranty or guarantee of the accuracy or completeness of information in this document.
--- NOTE | 2023-06-12 15:34 | PCM.HP.STD ---
HPI - General HPI Narrative CAITY MORALES, is a 83 F who presents with esophageal impaction. Patient reports that she was eating pork today and felt like something got stuck in her esophagus. She has not been able to swallow her saliva since eating. She has tried drinking Coke and has vomited. She denies any history of acid reflux and says this is never happened in the past. She denies any history of dysphagia. She is not on a PPI. [facility] Medical History Ductal carcinoma in situ (DCIS) of right breast Nipple discharge Nipple discharge, bloody Positive colorectal cancer screening using Cologuard test Post-menopausal Vitamin D deficiency Home Medications calcium carbonate 500 mg calcium (1,250 mg) tablet (Calcium 500) 500 mg PO BID 08/08/19 [History Last Taken Unknown] mecobalamin (vitamin B12) 5,000 mcg disintegrating tablet 5,000 mcg PO DAILY 08/08/19 [History Last Taken Unknown] multivitamin with minerals (Hair,Skin and Nails tablet) 1 tab PO BID 08/08/19 [History Last Taken Unknown] ergocalciferol (vitamin D2) 1,250 mcg (50,000 unit) capsule 50,000 unit PO Q7D 01/29/20 [History Last Taken Unknown] vitamins A,C,G-khsb-lubird 4,296 mcg-226 mg-90 mg capsule 1 tab PO DAILY 01/29/20 [History Last Taken Unknown] Allergy/AdvReac Type Severity Reaction Status Date / Time Penicillins Allergy Severe Rash Verified 06/12/23 13:56 Family History Brother Hypercholesterolemia Colon cancer Sister Diabetes Hypertension Father Diabetes Hypertension Surgical History History of right breast biopsy History of right cataract surgery S/P colonoscopy Status post right breast lumpectomy Status post right breast lumpectomy Social History household members: none Smoking Status: Never smoker second hand exposure: No alcohol intake: never substance use type: does not use albert/judaism: Jain seatbelt use: always do you feel safe at home: Yes ROS Constitutional Constitutional: Denies anorexia, chills, fatigue or fever(s) Eyes Eyes: Denies blurry vision ENT HEENT: Reports dysphagia; Denies abnormal hearing Cardiovascular Cardiovascular: Denies chest pain Respiratory/Chest Respiratory/Chest: Denies cough or dyspnea Gastrointestinal Gastrointestinal: Denies abdominal pain, nausea or vomiting Genitourinary Genitourinary: Denies change in urinary stream Musculoskeletal Musculoskeletal: Denies abnormal gait Integumentary Integumentary: Denies jaundice Neurologic Neurologic: Denies abnormal gait Hematologic/Lymphatic Hematologic/Lymphatic: Denies easy bleeding Vital Signs Vital Signs Vital Signs: 06/12/23 13:55 06/12/23 14:05 06/12/23 15:25 Temperature 97.5 F L Temperature Source Temporal Pulse Rate 80 Respiratory Rate 16 14 Respiratory Effort Normal Respiratory Pattern Normal Blood Pressure 170/83 H Blood Pressure Mean 112 Pulse Ox 100 Oxygen Delivery Method Room Air 06/12/23 15:30 Temperature Temperature Source Pulse Rate Respiratory Rate 16 Respiratory Effort Respiratory Pattern Blood Pressure Blood Pressure Mean Pulse Ox Oxygen Delivery Method Weight Weight: 179 lb 2 oz Body Mass Index (BMI) 30.7 Physical Exam Const oriented x3 and no apparent distress Resp normal respiratory effort Cardio regular rate and regular rhythm GI soft to palpation and non-tender Assessment & Plan Assessment/Plan (1) Esophageal foreign body: QUALIFIERS: Encounter type: initial encounter Qualified Code(s): T18.108A - Unspecified foreign body in esophagus causing other injury, initial encounter PLAN: Patient has food impaction of the esophagus. She was eating pork today and feels like everything got stuck after that. I will perform an EGD with removal of the foreign body. I discussed the possibility of advancing the food into the stomach versus removing the food. I discussed the risks of the procedure such as bleeding, perforation of the GI tract, aspiration. Patient understands all the risks and is willing to proceed. I explained endoscopy in detail to the patient. I explained the risks including but not limited to stroke or heart attack with anesthesia, perforation of the GI tract, bleeding, infection. I explained that any of these could necessitate further emergency surgery. The patient understands and all questions were answered sufficiently. Janes Humphrey MD Pager: [facility] [address] [place] [address], [address] [place] [address] Office:
--- OUTSIDE RECORDS SUMMARY | 2023-06-12 15:38 | XMS RPT_ITS | CCD ---
Author Name Unknown Address [address] [place] [address] Organization [facility] Care Team Providers Care Geographical Historian Name Role Phone Mera Hollingsworth Unavailable Jovanny Mccoy Unavailable Zahira Guerra Unavailable Unavailable Slarb, Nury Unavailable Unavailable Unavailable Unavailable Altagracia Morrell Unavailable De Higgins Unavailable Gravius, Catie Unavailable Unavailable Zahira Guerra Unavailable Unavailable Unavailable Unavailable Judi Noonan Unavailable Unavailable Fallon Ramirez Unavailable Unavailable Jovanny Mccoy Unavailable Michelet Umana Unavailable Mera Hollingsworth DO Unavailable De Higgins MD Unavailable Michelet Umana Unavailable Jovanny Mccoy MD Unavailable Judi Noonan LPN Unavailable Unavailable Zahira Guerra RN Unavailable Unavailable CiAltagracia thompson CNP E Unavailable Slarb FILM LABORATORY TECHNICIAN, Nury Unavailable Unavailable Cross FILM LABORATORY TECHNICIAN, Fallon Unavailable Unavailable Unavailable Unavailable Gravius OUTDOOR PURSUITS INSTRUCTOR, Catie Unavailable Unavailable Mera Hollingsworth DO Unavailable Ophelia Montiel Unavailable Manchak OUTDOOR PURSUITS INSTRUCTOR, Renae Unavailable Unavailable Denver IMELDA, Kayela Unavailable Unavailable Mera Hollingsworth DO [...] 162.6 cm Emilio Phan MD Work Phone: [facility] 03-20-2023 14:41-0400 Body mass index (BMI) [Ratio] 30.38 kg/m2 Emilio Phan MD Work Phone: [facility] 03-20-2023 14:41-0400 Body temperature 98.4 [degF] Emilio Phan MD Work Phone: [facility] 03-20-2023 14:41-0400 Body weight 80.29 kg Emilio Phan MD Work Phone: [facility] 11-08-2022 14:18-0400 Body height 162.6 cm Emilio Phan MD Work Phone: [facility] 11-08-2022 14:18-0400 Body mass index (BMI) [Ratio] 29.8 kg/m2 Emilio Phan MD Work Phone: [facility] 11-08-2022 14:18-0400 Body temperature 98.01 [degF] Emilio Phan MD Work Phone: [facility] 11-08-2022 14:18-0400 Body weight 78.74 kg Emilio Phan MD Work Phone: [facility] 09-20-2022 13:58-0400 Body height 162.6 cm Emilio Phan MD Work Phone: [facility] 09-20-2022 13:58-0400 Body mass index (BMI) [Ratio] 29.85 kg/m2 mEilio Phan MD Work Phone: [facility] 09-20-2022 13:58-0400 Body temperature 98.8 [degF] Emilio Phan MD Work Phone: [facility] 09-20-2022 13:58-0400 Body weight 78.88 kg Emilio Phan MD Work Phone: [facility] 08-18-2022 09:29-0500 Body height 162.56 cm Terese Mcdonald MA [facility] Work Phone: 08-18-2022 09:29-0500 Body mass index (BMI) [Ratio] 29.78 kg/m2 Terese Mcdnoald MA [facility]; [facility] [...] 10 minutes Emilio Phan MD Work Phone: [facility] ENT [place] Procedures Date Procedure Procedure Detail Performing Clinician Start: 08-05-2022 End: 08-05-2022 Foot min 3 Views Procedure Note: See Note; NOTES: [facility] Radiology [address] [place] [address] Foot min 3 Views MR#: [id number] Acct: [id number] Name: ALTAGRACIA MORALES Rep #: [id number] : 1940 F 82 From: Wilfredo Pemberton MD PCP: Dr. Mera Hollingsworth DO Status: DEP AMB Study: Foot min 3 Views Date of Exam: 08/05/22 Exam# [id number] Ordering Dr: Mera Hollingsworth DO STUDY: X-RAY [...] EST , CC: Dr. Mera Hollingsworth DO Construction Skills Teacher: Signed Mera Hollingsworth DO Work Phone: Start: 01-12-2022 End: 01-12-2022 Oncology Visit Report Procedure Note: See Note; NOTES: [facility] [address] [place] [address] OFFICE VISIT Date of Service: 01/12/22 1355 MR#: [id number] Acct: [id number] Name: ALTAGRACIA MORALES Rep #: [id number] : 1940 From: Mir Vargas MD Age/Sex: 81/F Location: [facility] Status: Signed HPI Subjective Date of Service [...] - Focal atypical ductal hyperplasia. Ancillary Studies ([id number]): ER - >95%, strong intensity SC - >95%, strong intensity Her2 aki (IHC) negative (0) Clinical history bloody nipple discharge. Pathologic Staging: pTis(DCIS) pNx pMx Treatment summary: Exploration with excision January 2020. Adjuvant radiation therapy: 02/24/2020 - 03/04/2020: Received 3000 cGy in 5 fractions to the right partial breast. Adjuvant hormonal therapy with Arimidex March 2020-September 2020 then she stopped. [facility] Medical History Ductal carcinoma in situ (DCIS) [...] never substance use type: does not use albert/scientologist: Latter-Day seatbelt use: always do you feel safe [...] PO Q7D 01/29/20 [History Confirmed 01/12/22] vitamins A,C,P-egev-gxbmnh 14,320 unit-226 mg-200 unit capsule 1 tab [...] and moves all extremities Coordination / Balance: okjdrr-mm-vfne test normal Speech: speech normal Gait (Neuro): [...] on the NRG Oncology/NSABP B-35 trial (Lancet. 2016;387(45890):849. Epub 2014May 22). Nonetheless she does not wish to resume hormonal therapy. 2-Continue vitamin D and calcium supplementation. 3-screening mammography to schedule December 2022 follow-up a week later. Impression and recommendations discussed. Mir Vargas MD Director Of Institutional Giving, [facility] Divisions of Medical Oncology Hematology Department of Internal Medicine [place] [phone] This note was generated using a voice [...] (CAD)W/ALEJANDRA BILAT Procedure Note: See Note; NOTES: [facility] Imaging Services [address] [place] [address] SCRN MAMM (CAD)W/ALEJANDRA BILAT MR#: [id number] Acct: [id number] Name: ALTAGRACIA MORALES Rep #: [id number] : 1940 F 81 From: Carlos Manuel curiel MD PCP: Dr. Mera Hollingsworth DO Status: REG CLI Study: SCRN MAMM (CAD)W/ALEJANDRA BILAT Date of Exam: 12/11 12/31 Exam# [id number] Ordering Dr: Mir Vargas MD MAMMOGRAPHY - [...] delay biopsy of a clinically suspicious abnormality. [id number] Electronically Signed: Carlos Manuel Franco MD at 14:03 EDT Reading Location ID and State: [facility] / [place] , Service support , CC: Dr. Mera Hollingsworth DO; Dr. Mir Vargas MD Construction Skills Teacher: Signed Mera Hollingsworth DO Work Phone: Start: 01-11-2021 End: 01-11-2021 Oncology Visit Report Comments: See Note; NOTES: [facility] [address] [place] [address] [id number] OFFICE VISIT Date of Service: 01/11/21 1417 MR#: [id number] Acct: [id number] Name: ALTAGRACIA MORALES Rep #: [id number] : 1940 From: Mir Vargas MD Age/Sex: 80/F Location: [facility] Status: Signed HPI Subjective Date of Service [...] - Focal atypical ductal hyperplasia. Ancillary Studies ([id number]): ER - >95%, strong intensity SC - >95%, strong intensity Her2 aki (IHC) negative (0) Clinical history bloody nipple discharge. Pathologic Staging: pTis(DCIS) pNx pMx Treatment summary: Exploration with excision January 2020. Adjuvant radiation therapy: 02/24/2020 - 03/04/2020: Received 3000 cGy in 5 fractions to the right partial breast. Adjuvant hormonal therapy with Arimidex March 2020-September 2020 then she stopped. [facility] Medical History Ductal carcinoma in situ (DCIS) [...] never substance use type: does not use albert/scientologist: Latter-Day seatbelt use: always do you feel safe [...] 93 Oxygen Delivery Method room air Intake Derrick Engineer Required: No Accompanied by: Self Is patient [...] PO Q7D 01/29/20 [History Confirmed 01/11/21] vitamins A,C,L-djcy-dhdfsd 1 tab PO DAILY 01/29/20 [History Confirmed 01/11/21] anastrozole 1 mg PO DAILY 90 Days #90 tab 03/18/20 [Rx Confirmed 01/11/21] Central Venous Access Central Venous Access: [facility] [address] [place] [address] SCRN MAMM (CAD)W/ALEJANDRA BILAT MR#: [id number]:[id number] e: ALTAGRACIA MORALES ARe #:[id number]: 1940F 80 From: Carlos Manuel Franco MDPCP:Dr. Mera Hollingsworth, DO Status:REG CLIStudy:SCRN MAMM (CAD)W/ALEJANDRA BILAT Date of Exam:01/04/21Exam#[id number] Ordering Dr: Mir Vargas MD MAMMOGRAPHY - [...] delay biopsy of a clinically suspicious abnormality. [id number] Electronically Signed: Carlos Manuel Franco MD at 14:47 EDT , Service support , CC: Dr. Mera Hollingsworth DO; Dr. Mir Vargas MD Construction Skills Teacher:Signed Exam Physical Exam Const alert and oriented [...] and moves all extremities Coordination / Balance: iqdqmg-nk-cdfg test normal Speech: speech normal Gait (Neuro): [...] on the NRG Oncology/NSABP B-35 trial (Lancet. 2016;387(33808):413. Epub 2014May 22). Nonetheless she does not wish to resume hormonal therapy. 2-Continue vitamin D and calcium supplementation. Bone density will be due in December 2021 3-screening mammography to schedule December 2021 follow-up a week later. Impression and recommendations discussed. Mir Vargas MD Director Of Institutional Giving, [facility] Divisions of Medical Oncology Hematology Department of Internal Medicine [place] [address] This note was generated using a voice recognition system software. Although it was reviewed by the author prior to finalization, it may still contain incorrect words, spelling, and punctuation that were not noted when reviewing prior to saving. If a clinically significant typo or inaccurately typed phrase is noted, please notify the author.. 01/11/21 6246 <Electronically signed by Mir Vargas MD> Date Mir Vargas MD Cosigner Signature: Date (if applicable) CC: Dr. Mera Hollingsworth, DO Mera Hollingsworth DO Work Phone: Start: 01-04-2021 End: 01-04-2021 SCRN MAMM (CAD)W/ALEJANDRA BILAT Comments: See Note; NOTES: [facility] Imaging Services [address] [place] [address] SCRN MAMM (CAD)W/ALEJANDRA BILAT MR#: [id number] Acct: [id number] Name: ALTAGRACIA MORALES Rep #: [id number] : 1940 F 80 From: Carlos Manuel curiel MD PCP: Dr. Mera Hollingsworth, DO Status: [facility] Study: SCRN MAMM (CAD)W/ALEJANDRA BILAT Date of Exam: 12/11 11/30 Exam# [id number] Ordering Dr: Mir Vargas MD MAMMOGRAPHY - [...] delay biopsy of a clinically suspicious abnormality. [id number] Electronically Signed: Carlos Manuel Franco MD at 14:47 EDT , Service support , CC: Dr. Mera Hollingsworth DO; Dr. Mir Vargas MD Construction Skills Teacher: Signed Mera Hollingsworth DO Work Phone: Start: 10-28-2020 End: 10-28-2020 Oncology Visit Report Comments: See Note; NOTES: [facility] [address] [place] [address]. [place] [address] OFFICE VISIT Date of Service: 10/28/20 1314 MR#: [id number] Acct: [id number] Name: ALTAGRACIA MORALES Rep #: [id number] : 1940 From: Mir Vargas MD Age/Sex: 80/F Location: [facility] Status: Signed HPI Subjective Date of Service [...] - Focal atypical ductal hyperplasia. Ancillary Studies ([id number]): ER - >95%, strong intensity SC - >95%, strong intensity Her2 aki (IHC) negative (0) Clinical history bloody nipple discharge. Pathologic Staging: pTis(DCIS) pNx pMx Treatment summary: Exploration with excision January 2020. Adjuvant radiation therapy: 02/24/2020 - 03/04/2020: Received 3000 cGy in 5 fractions to the right partial breast. Adjuvant hormonal therapy with Arimidex March 2020-September 2020 then she stopped. [facility] Medical History Ductal carcinoma in situ (DCIS) [...] 97 Oxygen Delivery Method room air Intake Derrick Engineer Required: No Accompanied by: Self Is patient [...] PO Q7D 01/29/20 [History Confirmed 10/28/20] vitamins A,C,Q-lapt-xjtopz 1 tab PO DAILY 01/29/20 [History Confirmed [...] and moves all extremities Coordination / Balance: fleixc-kj-wjve test normal Speech: speech normal Gait (Neuro): [...] on the NRG Oncology/NSABP B-35 trial (Lancet. 2016;387(00458):782. Epub 2014May 22). Since she has some [...] Impression and recommendations discussed. Mir Vargas MD Director Of Institutional Giving, [facility] Divisions of Medical Oncology Hematology Department of Internal Medicine [address] [address] This note was generated using a voice [...] min 3 Views Comments: See Note; NOTES: [facility] Radiology [address] [place] [address] Wrist min 3 Views MR#: [id number] Acct: [id number] Name: ALTAGRACIA MORALES Rep #: [id number] : 1940 F 80 From: Juancarlos Waters PCP: Dr. Mera Hollingsworth DO Status: DEP AMB Study: Wrist min 3 Views Date of Exam: 09/21/20 Exam# [id number] Ordering Dr: Altagracia Morrell PREPARED FOODS ASSOCIATE PREPARED FOODS ASSOCIATE-C We are attempting to reach an attending [...] the first carpometacarpal articulation. Electronically Signed: Juancarlos Mckoen MD at 13:15 EDT Tel , Service support , CC: WILLI Morrell; Dr. Mera Hollingsworth DO Construction Skills Teacher: Signed Altagracia Morrell Work Phone: Start: 07-09-2020 End: 07-09-2020 Oncology Follow-Up Visit Comments: See Note; NOTES: [facility] Medical Records Department [address] [place] [address] Oncology Follow-Up Visit 07/09/20 0957 MR#: [id number] Acct: [id number] Name: ALTAGRACIA MORALES Rep #: [id number] : 1940 80 From: Akash Caraballo DO PCP: Dr. 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 Distance to the [...] of papillary and micropapillary type (ER >95%, SC >95%, Her2 0 IHC) status post ductal [...] in the interim. Akash Caraballo DO, MS Director Of Institutional Giving, Department of Radiation Oncology [facility] 07/09/20 1000 <Electronically signed by Akash Caraballo DO> Date Akash Caraballo DO CC: Dr. Mir Vargas MD; Dr. De Higgins MD Signed Mera Hollingsworth Start: 04-29-2020 End: 04-29-2020 Oncology Visit Report Comments: See Note; NOTES: [facility] [address] [address] OFFICE VISIT Date of Service: 04/29/20 1247 MR#: [id number] Acct: [id number] Name: ALTAGRACIA MORALES Rep #: [id number] : 1940 From: Mir Vargas MD Age/Sex: [...] - Focal atypical ductal hyperplasia. Ancillary Studies ([id number]): ER - >95%, strong intensity SC - >95%, strong intensity Her2 aki (IHC) [...] % Lymph % (Auto) 34.4 (19-41) % Collier % (Auto) 7.8 (0-10) % Eos % [...] on the NRG Oncology/NSABP B-35 trial (Lancet. 2016;387(04081):849. Epub 2014May 22). 2-with pre-existing postmenopausal osteopenia despite vitamin D and calcium supplementation advise bone supportive therapy with Prolia 60 MCG subcu every 6 months starting April 29, 2020. 3-follow-up in 6 months Impression and recommendations discussed. Mir Vargas MD Director Of Institutional Giving, [facility] Divisions of Medical Oncology Hematology Department of Internal Medicine [place] [phone] This note was generated using a voice [...] Signature: Date (if applicable) CC: DO Mera Spcier Start: 04-02-2020 End: 04-02-2020 Oncology Follow-Up Visit Comments: See Note; NOTES: [facility] Medical Records Department [address] [place] [address] Oncology Follow-Up Visit 04/02/20 1110 MR#: [id number] Acct: [id number] Name: ALTAGRACIA MORALES Rep #: [id number] : 1940 80 From: Akash Caraballo DO PCP: Dr. 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 Distance to the [...] of papillary and micropapillary type (ER >95%, SC >95%, Her2 0 IHC) status post ductal [...] in the interim. Akash Caraballo DO, MS Director Of Institutional Giving, Department of Radiation Oncology [facility] 04/02/20 1119 <Electronically signed by Akash Caraballo DO> Date Akash Caraballo DO CC: Dr. Mir Vargas MD; Dr. De Higgins MD Signed Mera Hollingsworth Start: 03-18-2020 End: 03-18-2020 Oncology Visit Report Comments: See Note; NOTES: [facility] [address] [address] OFFICE VISIT Date of Service: 03/18/20 1329 MR#: [id number] Acct: [id number] Name: ALTAGRACIA MORALES Rep #: [id number] : 1940 From: Madisyn Longoria NP PREPARED FOODS ASSOCIATE -C Age/Sex: 80/F Location: [facility] Status: Signed [...] - Focal atypical ductal hyperplasia. Ancillary Studies ([id number]): ER - >95%, strong intensity SC - >95%, strong intensity Her2 aki (IHC) [...] team. Engaged in lengthy conversation regarding potential detention/late side effects associated with chemotherapy exposure, recommendations [...] t he NRG Oncology/NSABP B-35 trial (Lancet. 2016;387(58634):849. Epub 2014May 22). Good tolerance and adherence [...] to see Dr. Vargas. Madisyn Longoria, MSN, TEACHER CCLC, AOCNP Medications: Prescriptions This Visit Medication Instructions Recorded Ergocalciferol [Vitamin D] 50,000 unit PO Q7D 01/29/20 Vit A/Vit C/Vit E/Zinc/Copper 1 tab PO DAILY 01/29/20 [Preservision Areds Softgel] Anastrozole [Arimidex] 1 mg PO DAILY 30 Days #30 tab 02/05/20 Primary Care Provider: Dr. Mera Hollingsworth DO Referring Provider: Dr. De Hgigins MD - Problem List (1) Ductal carcinoma [...] 1419 <Electronically signed by Madisyn Longoria NP PREPARED FOODS ASSOCIATE-C> Date Madisyn Longoria NP PREPARED FOODS ASSOCIATE-C Cosigner Signature: Date (if applicable) CC: Mera Hollingsworth Start: 03-18-2020 End: 03-18-2020 End of Treatment Summary Comments: See Note; NOTES: [facility] [address] [place] [address] End of Treatment Summary Date of Service: 03/18/20 1052 MR#: [id number] Acct: [id number] Name: ALTAGRACIA MORALES Rep #: [id number] : 1940 From: Madisyn Longoria NP PREPARED FOODS ASSOCIATE -C Age/Sex: 80/F Location: [facility] Status: Signed General Information Primary Care Provider:: Mera Hollingsworth Surgeon Name: De Higgins Radiation Oncologist:: Aaksh Caraballo Medical Oncologist:: Mir Vargas Other Providers:: [...] Other comments:: Prepared by Leslie Longoria, MSN, BOX STACKER-C, AOCNP. Delivered on 03/18/20 03/18/20 1346 <Electronically signed by Madisyn Longoria NP PREPARED FOODS ASSOCIATE-C> Date Madisyn Longoria NP PREPARED FOODS ASSOCIATE-C Cosigner Signature: Date (if applicable) CC: Dr. Mera Hollingsworth DO; MD Mera Osorio Start: 03-04-2020 End: 03-04-2020 End of Treatment Summary Comments: See Note; NOTES: 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 Distance to the [...] this patient. Sincerely, Akash Caraballo DO, MS Director Of Institutional Giving, Department of Radiation Oncology [facility] 03/04/20 1037 <Electronically signed by Akash Caraballo DO> Date Aksah Caraballo DO Cosigner Signature: Date (if applicable) CC: Dr. Mera Hollingsworth DO; Dr. Mir aVrgas MD; MD Mera Osorio Start: 03-04-2020 End: 03-04-2020 Radiation Oncology Visit Comments: See Note; NOTES: 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 Akash Caraballo DO, MS Director Of Institutional Giving, Department of Radiation Oncology [facility] 03/04/20 0963 <Electronically signed by Akash Caraballo DO> Date Akash Caraballo DO [facility] Signature: Date (if applicable) CC: Mera Hollingsworth Start: 02-26-2020 End: 02-26-2020 Radiation Oncology Visit Comments: See Note; NOTES: 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 Akash Caraballo DO, MS Director Of Institutional Giving, Department of Radiation Oncology [facility] 02/26/20 0949 <Electronically signed by Akash Caraballo DO> Date Akash Caraballo DO Cosigner Signature: Date (if applicable) CC: Mera Hollingsworth Start: 02-06-2020 End: 02-06-2020 Consultation Comments: See Note; NOTES: [facility] Medical Records Department [address] [place] [address] Consultation 02/06/20 1016 MR#: [id number] Acct: [id number] Name: ALTAGRACIA MORALES Rep #: [id number] : 1940 80 From: Akash Caraballo DO PCP: Dr. 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 Distance to the [...] of Menopause 66 Do you have regular technical operations manager No examinations and PAP smears? Hx Control [...] of papillary and micropapillary type (ER >95%, SC >95%, Her2 0 IHC) status post ductal [...] recurrence is dependent on several factors including ER/SC receptor status, tumor size, tumor grade/necrosis, margin status, as well as potentially other factors such as age. She has grade 1 disease without necrosis, negative margins (close at 0.1 cm), ER/SC+, 1.7 x 1.3 cm tumor. I reviewed [...] reviewed her risk of recurrence using the [facility] nomogram which predicts a risk of recurrence [...] at any time. Akash Caraballo DO, MS Director Of Institutional Giving, Department of Radiation Oncology [facility] 02/06/20 1047 <Electronically signed by Akash Caraballo DO> Date Akash Caraballo DO Cosigner Signature (if applicable): Date CC: Dr. Mera Hollingsworth DO; Dr. Mir Vargas MD; Dr. De Higgins MD Signed Mera Hollingsworth Start: 02-05-2020 End: 02-05-2020 Oncology Visit Report Comments: See Note; NOTES: [facility] [place] [address] [place] [address] OFFICE VISIT Date of Service: 02/05/20 1021 MR#: [id number] Acct: [id number] Name: ALTAGRACIA MORALES Rep #: [id number] : 1940 From: Madisyn MÁRQUEZ Age/Sex: 80/F [...] - Focal atypical ductal hyperplasia. Ancillary Studies (MF25-520): ER - >95%, strong intensity SC - >95%, strong intensity Her2 aki (IHC) [...] aqua aerobics and exercise at the community [place]. - Past Medical/Social History Past Medical History [...] t he NRG Oncology/NSABP B-35 trial (Lancet. 2016;387(89002):849. Epub 2014May 22). The patient has been [...] care planning early March. Madisyn Longoria, MSN, TEACHER CCLC, AOCNP Medications: Prescriptions This Visit Medication Instructions [...] (3) Encounter for education Status: Acute 02/05/20 2062 <Electronically signed by Madisyn JENKINSC> Date Madisyn MÁRQUEZ Cosigner Signature: Date (if applicable) CC: Mera Hollingsworth Start: 01-29-2020 End: 01-29-2020 Oncology History and Physical Comments: See Note; NOTES: [facility] Medical Records Department [address] [place] [address] History and Physical 01/29/20 0946 MR#: [id number] Acct: [id number] Name: ALTAGRACIA MORALES Rep #: [id number] : 1940 80 From: Mir Vargas MD [...] - Focal atypical ductal hyperplasia. Ancillary Studies (MA53-301): ER - >95%, strong intensity SC - >95%, strong intensity Her2 aki (IHC) negative (0) Clinical history bloody nipple discharge. Pathologic Staging: pTis(DCIS) pNx pMx Power of Co Pilot: Yes Living Will: Yes Health History: Past [...] drinking: Has the patient needed an eye airplane gastank liner assembler in the mornings: Comments: Date of last [...] on t NRG Oncology/NSABP B-35 trial (Lancet. 2016;387(56167):849. Epub 2014May 22). 2-with pre-existing postmenopausal osteopenia despite vitamin D and calcium supplementation advise bone supportive therapy with Prolia 60 MCG subcu every 6 months after obtaining dental clearance. 3-radiation oncology consultation and decision making regarding adjuvant radiation therapy. 4-patient is to schedule a formal anticancer therapy teaching session with PREPARED FOODS ASSOCIATE, follow-up with myself in 3 months. Impression and recommendations discussed, main side effects of AI therapy (hot flashes, dyslipidemia, bone loss, and musculoskeletal complaints) were discussed. Mir Vargas MD Director Of Institutional Giving, [facility] Divisions of Medical Oncology Hematology Department of Internal Medicine [place] [address] This note was generated using a voice [...] Surgery Visit Report Comments: See Note; NOTES: [facility] [address] [place] [address] [place], [place] [id number] OFFICE VISIT Date of Service: 01/24/20 MR#: [id number] Acct: [id number] Name: ALTAGRACIA MORALES Rep #: [id number] : 1940 Provider: Dr. De sanchez MD Age/Sex: 79/F Location: [facility] Status: Signed Intake Intake Visit Reasons: 10 DAY F/U BREAST BIOPSY 01/14 Chief Complaint: follow up right breast biopsy Derrick Engineer Required: No Is patient in pain?: No [...] assisting with her surgical care. Copy: Dr. Mera Higgins M.D., F.A.C.S. Orders Referrals: Oncology D05.11, Z98.890 Coding Level of Care Code Global Post Op Diagnoses Status post right breast lumpectomy Z98.890 Ductal carcinoma in situ (DCIS) of right breast D05.11 01/24/20 1103 <Electronically signed by De Higgins MD> Date De Higgins MD Cosigner Signature: Date (if applicable) CC: DO Mera Spicer Start: 01-15-2020 End: 01-15-2020 Operative Report Comments: See Note; NOTES: [facility] Medical Records Department [address] [place] [address] Operative Report 01/15/20 1007 MR#: [id number] Acct: [id number] Name: ALTAGRACIA MORALES Rep #: [id number] : 1940 79 From: De Higgins MD PCP: Dr. Mera Hollingsworth DO Status:[facility] Y Location: [facility] Problem List (1) Nipple discharge, bloody Status: [...] 01-15-2020 Discharge Instruction Comments: See Note; NOTES: [facility] Medical Records Department [address] [place] [address] Instructions for Home/Discharge Instructions 01/15/2006 MR#: [id number] Acct: [id number] Name: ALTAGRACIA MORALES Rep #: [id number] : 1940 79 From: De Higgins MD PCP: Dr. Mera Hollingsworth DO Status:[facility] Discharge Diet: No Restrictions Discharge Activity: May [...] Up With: De Higgins MD When: Appt. [phone] Approx. 10 days please 01/15/20 1238 <Electronically signed by De Higgins MD> Date De Higgins MD CC: Dr. Mera Hollingsworth DO Signed Mera Hollingsworth Start: 01-15-2020 End: 01-15-2020 History and Physical Exam Comments: See Note; NOTES: [facility] Medical Records Department [address] [place] [address] History and Physical 01/15/20 0905 MR#: [id number] Acct: [id number] Name: ALTAGRACIA MORALES Rep #: [id number] : 1940 79 From: De Higgins MD PCP: Dr. Mera Hollingsworth DO Status:REG SDC Y Location: [place] [address] Problem List (1) Nipple discharge, bloody Status: Acute History and Physical Date of Admission: 01/15/20 Intake Visit Reasons: 1 YEAR F/U R BRST, MAMMO 01/02/2020 [facility] Chief Complaint: follow up mammogram/nipple discharge Derrick Engineer Required: No Is patient in pain?: No [...] PO DAILY 08/08/19 [History Confirmed 01/06/20] vitamins A,C,J-waxt-ycearp 7,160 unit-113 mg-100 unit tablet 2 tab PO BID 08/08/19 [History Confirmed 01/06/20] [facility] Medical History (Updated 08/08/19 @ 09:55 by [...] states that her discharge has ceased 01/02/20 [facility] Imaging Services [address] [place] [address] SCREEN MAMM (CAD) W/ALEJANDRA BILAT MR#: [id number]:[id number] Name: ALTAGRACIA MORALES ARe #:[id number] : 1940F 79 From: Elier King MD PCP:Dr. Mera Hollingsworth, Status:REG CLI Study:SCREEN MAMM (CAD) W/ALEJANDRA BILAT Date of Exam:01/02/20 Exam#[id number] Ordering Dr: Mera Hollingsworth DO MAMMOGRAPHY - [...] Appearance: average body habitus Orientation: alert, awake [facility] Head: normal to inspection Chest Breast [...] Covid-19 pandemic. She is aware that the [facility] is reporting a low local incidence. We [...] 12 Lead EKG Comments: See Note; NOTES: [facility] Cardiovascular Services [address] [facility] [place] [address] 12 Lead EKG 01/10/20 09 MR#: [id number] Acct: [id number] Name: ALTAGRACIA MORALES Rep #: [id number] : 1940 79 From: Natacha Valadez MD Attending Dr: Dr. De Higgins MD Status: SC E SDC Ordering Dr: De Higgins MD Date: 01/10/20 Location: [facility] Sex: F C Admitted: Test Reason : [...] ECG Confirmed by DARIO FROST, DORIS ([id number]), international editorial producer FARZANA BISHOP ([id number]) on 01/13/2020 2:05:39 PM Referred By: De Higgins Confirmed By:RJ VALADEZ MD 01/13/20 1405 Date Natacha Valadez MD CC: Dr. Mera Hollingsworth DO; Dr. De Higgins MD Signed De Higgins Work Phone: Start: 01-06-2020 End: 01-06-2020 Surgery Visit Report Comments: See Note; NOTES: [facility] [address] [place] [address] OFFICE VISIT Date of Service: 01/06/20 MR#: [id number] Acct: [id number] Name: ALTAGRACIA MORALES Rep #: [id number] : 1940 Provider: Dr. De sanchez MD Age/Sex: 79/F Location: [facility] Status: Signed Intake Vital Signs 01/06/20 [...] 1 YEAR F/U R BRST, MAMMO 01/02/2020 [facility] Chief Complaint: follow up mammogram/nipple discharge Derrick Engineer Required: No Is patient in pain?: No [...] PO DAILY 08/08/19 [History Confirmed 01/06/20] vitamins A,C,J-kywd-xwlzyx 7,160 unit-113 mg-100 unit tablet 2 tab PO BID 08/08/19 [History Confirmed 01/06/20] [facility] Medical History (Updated 08/08/19 @ 09:55 by [...] states that her discharge has ceased 01/02/20 [facility] Imaging Services [address] [place] [address] SCREEN MAMM (CAD) W/ALEJANDRA BILAT MR#: [id number]:[id number] Name: ALTAGRACIA MORALES [facility] #:[id number] : 1940F 79 From: Elier King MD PCP:Dr. Mera Hollingsworth, Status:REG CLI Study:SCREEN MAMM (CAD) W/ALEJANDRA BILAT Date of Exam:01/02/20 Exam#[id number] Ordering Dr: Mera Hollingsworth DO MAMMOGRAPHY - [...] Appearance: average body habitus Orientation: alert, awake [facility] Head: normal to inspection Chest Breast [...] Covid-19 pandemic. She is aware that the [facility] is reporting a low local incidence. We [...] (CAD) W/ALEJANDRA BILAT Comments: See Note; NOTES: [facility] Imaging Services [address] [place] [address] SCREEN MAMM (CAD) W/ALEJANDRA BILAT MR#: [id number] Acct: [id number] Name: ALTAGRACIA MORALES Rep #: [id number] : 1940 F 79 From: Elier King MD PCP: Dr. Mera Hollingsworth, DO Status: REG CLI Study: SCREEN MAMM (CAD) W/ALEJANDRA BILAT Date of Exam: 0 01/02/20 Exam# [id number] Ordering Dr: Mera Hollingsworth DO MAMMOGRAPHY - [...] support , CC: Dr. Mera Hollingsworth DO Construction Skills Teacher: Signed Mera Hollingsworth Work Phone: Start: 01-02-2020 End: 01-07-2020 Dexa Bone Density Study Comments: See Note; NOTES: [facility] Imaging Services [address] [place] [address] Dexa Bone Density Study MR#: [id number] Acct: [id number] Name: ALTAGRACIA MORALES Rep #: [id number] : 1940 F 79 From: Carlos Manuel curiel MD PCP: Dr. 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 Mera Hollingsworth, DO Construction Skills Teacher: Signed Mera Hollingsworth Work Phone: Start: 08-08-2019 End: 08-08-2019 Surgery Visit Report Comments: See Note; NOTES: [facility] [address] [place] [address]. [address] [place] [address] OFFICE VISIT Date of Service: 08/08/19 MR#: [id number] Acct: [id number] Name: ALTAGRACIA MORALES Rep #: [id number] : 1940 Provider: De Higgins MD Age/Sex: 79/F Location: [facility] Status: Signed Intake Vital Signs08/08/19 Height 5 ft 3.5 in 08/08/19 Weight: 175 lb 4 oz Intake Visit Reasons: Bloody Discharge R Nipple Chief Complaint: right nipple discharge Derrick Engineer Required: No Is patient in pain?: No Allergies Penicillins Allergy (Verified 08/08/19 09:12) Rash Medications qgvzpwtq-krukydvwu-mnmcvjzxw 3.5 mg-10,000 unit/mL-1 % ear drops,susp 3 [...] PO DAILY 08/08/19 [History Confirmed 08/08/19] vitamins A,C,T-dwcu-jwadxb 7,160 unit-113 mg-100 unit tablet 2 tab [...] states that her discharge has ceased Diagnostic [facility] Imaging Services [address] [place] [address] DIAG MAMM W/CAD, BILAT MR#: [id number] Name: ALTAGRACIA MORALES [facility] #:[id number] : 1940F 78 From: Elier King MD PCP:Mera Hollingsworth DO Status:REG CLI Study:DIAG MAMM W/CAD, BILAT Date of Exam:12/31/18 Exam#[id number] Ordering Dr: Altagracia Morrell PREPARED FOODS ASSOCIATE-C MAMMOGRAPHY - BILATERAL DIAGNOSTIC REASON FOR EXAM: [...] at 14:39 EDT , Service support , [facility] Imaging [facility] [place] [address] Breast Limited Unilateral MR#: [id number] Name: ALTAGRACIA MORALES [facility] #:[id number] : 1940F 78 From: Elier King MD PCP:Mera Hollingsworth DO Status:REG CLI Study:Breast Limited Unilateral Date of Exam:12/31/18 Exam#[id number] Ordering Dr: Altagracia Morrell PREPARED FOODS ASSOCIATE-C STUDY: ULTRASOUND BREAST - RIGHT REASON FOR [...] the facility within 30 days. Electronically Signed: Garcaí King MD at 15:10 EDT , Service [...] M.D., F.A.C.S. Coding Level of Care Code 29348 Diagnoses Nipple discharge, bloody N64.52 08/08/19 0957 <Electronically signed by De Higgins MD> Date De Franco Signature: Date (if applicable) CC: Mera Raya Start: 08-05-2019 End: 08-05-2019 Urgent Care Visit Report Comments: See Note; NOTES: [facility] [address] [place] [address] [address] [place] [address] OFFICE VISIT Date of Service: 08/05/19 MR#: [id number] Acct: [id number] Name: ALTAGRACIA MORALES Rep #: [id number] : 1940 Provider: Mitchel FAUSTIN Age/Sex: 79/F Location: [facility] Status: Signed Intake Vital Signs08/05/19 Height 5 ft 4 in 08/05/19 Weight: 174 lb 08/05/19 BMI 29.8 08/05/19 BP 142/82 H Intake Visit Reasons: RT EAR CLOGGED/ EAR ACHE Chief Complaint: Right ear pain Allergies Penicillins Allergy (Verified 08/05/19 13:26) Rash Medications aurfikjb-ecdqejyqa-nfelezutw 3.5 mg-10,000 unit/mL-1 % ear drops,susp 3 [...] normal.) Exam Const General: cooperative, healthy appearing HENSD Head: normocephalic, atraumatic Ears: hearing grossly normal [...] agreement with all the above. Medications New: pkrqacoz-rnsegvwtp-YC 3.5-10,000-1 mg/mL-unit/mL-%3 drps otic (ear) Q4H 10 days 10 mL 0RF apply to (cotton) wick; replace wick every 24 hours Coding Level of Care Code Off vis,new,level 3 Diagnoses Acute diffuse otitis externa of right ear H60.311 Otitis externa type: diffuse Chronicity: acute Laterality: right 08/05/19 4106 <Electronically signed by Mitchel FAUSTIN> Date Mitchel Franco Signature: Date (if applicable) CC: Mera Hollingsworth Start: 12-31-2018 End: 12-31-2018 Breast Limited Unilateral Comments: See Note; NOTES: [facility] Imaging Services [address] [place] [address] Breast Limited Unilateral MR#: [id number] Acct: [id number] Name: ALTAGRACIA MORALES Rep #: [id number] : 1940 F 78 From: Elier King MD PCP: Mera Hollingsworth DO Status: REG CLI Study: Breast Limited Unilateral Date of Exam: 12/31/18 Exam# [id number] Ordering Dr: Altagracia Morrell PREPARED FOODS ASSOCIATE-C STUDY: ULTRASOUND BREAST - RIGHT REASON FOR [...] , CC: PEDRO Morrell; Mera Hollingsworth DO Construction Skills Teacher: Signed Altagracia Morrell Work Phone: Start: 12-31-2018 End: 01-03-2019 DIAG MAMM W/CAD, BILAT Comments: See Note; NOTES: [facility] Imaging Services [address] [place] [address] DIAG MAMM W/CAD, BILAT MR#: [id number] Acct: [id number] Name: ALTAGRACIA MORALES Rep #: [id number] : 1940 F 78 From: Elier King MD PCP: Mera Hollingsworth DO Status: REG CLI Study: DIAG MAMM W/CAD, BILAT Date of Exam: 12/31/18 Exam# [id number] Ordering Dr: Altagracia Morrell PREPARED FOODS ASSOCIATE-C MAMMOGRAPHY - BILATERAL DIAGNOSTIC REASON FOR EXAM: [...] , CC: PEDRO Morrell; Mera Hollingsworth DO Construction Skills Teacher: Signed Altagracia Morrell Work Phone: Start: 04-16-2018 End: 04-16-2018 Office Visit Report Comments: See Note; NOTES: [facility] [address] [place] [address] OFFICE VISIT Date of Service: 03/12/18 MR#: [id number] Acct: [id number] Patient: ALTAGRACIA MORALES Rep #: [id number] : 1940 Provider: Yasmine Palacios Age/Sex: 78/F Location: [facility] Status: Signed Intake Vital Signs03/12/18 Temperature 98.6 [...] Admin Location Lot Number Expiration Date NDC Motor Overhauler 0.5 mL IM R deltoid [id number] 10/09/18 23048-370-39 [employer] Assessment AND Plan Orders Orders: Medications Discontinued: Fluad 65yr up(PF)45 mcg(15 mcgx3)/0.5 mL intramus0.5 mL IM ONCE 0.5 mL 0RF NS Z23 cular syringe ( vac 2017 65up-vrrTP16T(PF)) Discont inued Reason: Office Medication has been Documented as opal kalyneden 04/16/18 1336 <Electronically signed by Michelet FAUSTIN> Date Michelet FAUSTIN Cosigner Signature: Date (if applicable) CC: Mera Lilia Start: 09-25-2017 End: 09-25-2017 Surgery Visit Report Comments: See Note; NOTES: [facility] [employer] [facility] [address] [place] [address] OFFICE VISIT Date of Service: 09/25/17 MR#: [id number] Acct: [id number] Name: ALTAGRACIA MORALES Rep #: [id number] : 1940 Provider: Jovanny Kate MD Age/Sex: 77/F Location: [facility] Status: Signed Intake Vital Signs09/25/17 Blood Pressure 147/79 09/25/17 Blood Pressure Location Lt brachial Intake Visit Reasons: F/U C-Scope Chief Complaint: positive cologard Derrick Engineer Required: No Is patient in pain?: No [...] 09-15-2017 Operative Report Comments: See Note; NOTES: [facility] Medical Records Department [address] [place] [address] Operative Report 09/13/1729 MR#: [id number] Acct: [id number] Name: ALTAGRACIA MORALES Rep #: [id number] : 1940 77 From: Jovanny Kate MD PCP: Mera Hollingsworth DO Status: [facility] Y Location: [place] Problem List (1) Positive [...] 09-14-2017 Discharge Instruction Comments: See Note; NOTES: [facility] Medical Records Department [address] [facility] [place] [address] Instructions for Home/Discharge Instructions 09/14/17708 MR#: [id number] Acct: [id number] Name: ALTAGRACIA MORALES Rep #: [id number] : 1940 77 From: Huong Salazar PA-C PCP: Mera Hollingsworth DO Status: [facility] Discharge Diet: No Restrictions Discharge Activity: Return [...] Follow Up With: Jovanny Kate MD - [phone] When: 1 week at [facility] 2nd floor Proposed Discharge Date: 09/14/17 09/14/17709 <Electronically signed by Huong Salazar PA-C> Date uHong Salazar PA-C CC: Mera Raya Start: 09-13-2017 End: 09-14-2017 Abdomen Single View Comments: See Note; NOTES: [facility] Imaging Services [address] [place] [address] Abdomen Single View MR#: [id number] Acct: [id number] Name: ALTAGRACIA MORALES Rep #: [id number] : 1940 F 77 From: Carlos Manuel Franco MD PCP: Mera Hollingsworth DO Status: [facility] Study: Abdomen Single View Date of Exam: 09/13/17 Exam# [id number] Ordering Dr: Jovanny Kate MD STUDY: X-RAY [...] Manuel Franco MD at 10:39 EDT Tel [phone], Service support , CC: Jovanny Kate MD; Mera Hollingsworth DO Construction Skills Teacher: Signed Mera Hollingsworth Start: 08-28-2017 End: 08-28-2017 Surgery Visit Report Comments: See Note; NOTES: [facility] [address] [place] [address] [address] [place] [id number] OFFICE VISIT Date of Service: 08/28/17 MR#: [id number] Acct: [id number] Name: ALTAGRACIA MORALES Rep #: [id number] : 1940 Provider: Jovanny Kate MD Age/Sex: 77/F Location: [facility] Status: Signed Intake Vital Signs08/28/17 Height 5 ft 3 in 08/28/17 Weight: 165 lb 2 oz 08/28/17 Body Mass Index (BMI) 29.2 08/28/17 Blood Pressure 148/80 Intake Visit Reasons: C-Scope Screening (positive cologaurd test) Chief Complaint: positive cologard Derrick Engineer Required: No Is patient in pain?: No [...] person, oriented to place, oriented to time [facility] Head: normocephalic, atraumatic Ears: external ears [...] MAMM (CAD), BILAT Comments: See Note; NOTES: [facility] Imaging Services [address] [place] [address] SCREENING MAMM (CAD), BILAT MR#: [id number] Acct: [id number] Name: ALTAGRACIA MORALES Rep #: [id number] : 1940 F 77 From: Carlos Manuel Franco MD PCP: Mera Hollingsworth DO Status: REG CLI Study: SCREENING MAMM (CAD), BILAT Date of Exam: 08/19/17 Exam# [id number] Ordering Dr: Mera Hollingsworth DO MAMMOGRAPHY - [...] delay biopsy of a clinically suspicious abnormality. [id number] Electronically Signed: Carlos Manuel Franco MD at 8:28 EDT Tel [phone], Service support , CC: Mera Hollingsworth DO Construction Skills Teacher: Signed Mera Hollingsworth Work Phone: Start: 03-17-2016 End: 03-17-2016 PT D/C of Non Returning Pt (1) Comments: See Note; NOTES: [facility] Physical [facility] [address] [place], [place] [address] Fax REHABILITATION SERVICES DISCHARGE SUMMARY MR#: [id number] Acct: [id number] Name: ALTAGRACIA MORALES Rep #: [id number] : 1940 76 From: Rm Ramos PT, [...] 1233 CC: Altagracia Morrell; Mera Hollingsworth DO [facility] Signed Mera Hollingsworth Start: 03-17-2016 End: 03-17-2016 Dexa Bone Density Study (HP) Comments: See Note; NOTES: [facility] Imaging Services [address] [place] [address] Verdana 4d Dexa Bone Density Study (HP) MR#: [id number] Acct: [id number] Name: ALTAGRACIA MORALES Rep #: [id number] : 1940 F 76 From: Carlos Manuel Franco MD PCP: Mera Hollingsworth DO Status: REG CLI Study: Dexa Bone Density Study (HP) Date of Exam: 03/17/16 Exam# [id number] Ordering Dr: Mera Hollingsworth DO STUDY: DUAL [...] Manuel Franco MD at 12:44 EDT Tel [phone], Service support [phone], CC: Mera Hollingsworth DO Construction Skills Teacher: Signed Mera Hollingsworth Work Phone: Start: 03-07-2016 End: 03-07-2016 Inital Evaluation (1) - PT Comments: See Note; NOTES: [facility] [address] [place] [address]. [address] [place] [address] Fax REHABILITATION SERVICES INITIAL EVALUATION MR#: [id number] Acct: [id number] Name: ALTAGRACIA MORALES Rep #: [id number] : 1940 76 From: Rm Ramos PT, [...] to be FAXED BACK to us at [phone] for Medicare purposes. Please let me know if there are questions or concerns regarding this plan of care. Physician Signature: D ate: <Electronically signed by Rm Ramos PT, ATC> 03/07/16 1419 CC: Altagracia Morrell; Mera Hollingsworth DO [facility] Signed For Medicare only, by signing this I certify the plan of care. Physicians Signature Date Mera Hollingsworth Start: 03-01-2016 End: 03-01-2016 Femur Min 2 Views Comments: See Note; NOTES: [facility] Imaging Services [address] [place] [address] Verdana 4d Femur Min 2 Views MR#: [id number] Acct: [id number] Name: ALTAGRACIA MORALES Rep #: [id number] : 1940 F 76 From: Anil Malone DO PCP: Mera Hollingsworth DO Status: REG CLI Study: Femur Min 2 Views Date of Exam: 03/01/16 Exam# [id number] Ordering Dr: Altagracia Morrell STUDY: X-RAY - [...] Anil Malone DO at 16:56 EDT Tel [phone], Service support [phone], CC: Altagracia Morrell; Mera Hollingsworth DO Construction Skills Teacher: Signed Altagracia Morrell Work Phone: Extraction of cataract Abimael a Slarb Plan of Treatment Date Care Activity Detail Author Start: 09-19-2023 End: 09-19-2023 Patient encounter procedure 09/19/2023 10:45 AM EDT Office Visit [facility] [address] [place] [address] Emilio Phan MD [address] [address] [facility] Start: 03-20-2023 End: 03-20-2023 Patient encounter procedure 03/20/2023 2:00 PM EDT Office Visit [facility] [address] [place] [address] Emilio Phan MD [address] [address] [facility] Start: 02-10-2023 COVID-19 Vaccine ( season) COVID-19 Vaccine ( season) [facility] Start: 02-10-2023 Influenza vaccination [facility] Start: 08-18-2022 Procedure Education Eprescribed prescriptions (G8553) [facility]; [facility] Work Phone: Start: 08-18-2022 Provider Instructions for Treatment [facility]; [facility] Work Phone: Start: 08-05-2022 Procedure Education Eprescribed prescriptions (G8553) [facility]; [facility] Work Phone: Start: 08-05-2022 25 hydroxy includes fractions if performed CALCIFIDIOL (48938) VIT D 25 [facility]; [facility] Work Phone: Start: 08-05-2022 Assay of thyroid stimulating hormone tsh TSH (52997) [facility]; [facility] Work Phone: Start: 08-05-2022 Comprehensive metabolic panel METABOLIC PANEL, COMPREHENSIVE (04354) [facility]; [facility] Work Phone: Start: 08-05-2022 Lipid panel LIPID PANEL (66323) [facility]; [facility] Internal Medicine Work Phone: Start: 08-05-2022 Blood count complete auto&auto difrntl wbc CBC W/AUTO DIFF WBC (98217) [facility]; [facility] Work [...] examination, annual for health maintenance Wellness Visit [facility] Start: 02-05-2020 Procedure Education Eprescribed prescriptions [...] 12-24-2018 TSH Qn TSH (THYROID STIMULATING HORMONE) ([id number]) [facility] Work Phone: Start: 12-24-2018 Blood count complete automated CBC & PLATELETS (AUTO) ([id number]) [facility] Work Phone: Start: 12-24-2018 Procedure Education Eprescribed prescriptions ([id number]) [facility] Work Phone: Start: 09-06-2017 Provider Instructions for Treatment BP MONITORING - SELF [facility] Work Phone: Start: 08-07-2017 Provider Instructions for Treatment [facility] Work Phone: Start: 03-31-2016 Provider Instructions for Treatment [facility] Work Phone: Start: 03-17-2016 Provider Instructions for Treatment Reviewed Pellet Machine Operator Letter [facility] Work Phone: Start: 03-01-2016 Provider Instructions for Treatment Follow up in 2 weeks [facility] Work Phone: Start: 02-19-2016 Blood occult fecal hgb deter ia qual feces 1-3 FECAL OCCULT- Tubes sent home (37532) [facility] Work Phone: Start: 02-19-2016 Provider Instructions for Treatment *Colon Cancer Screening [facility] Work Phone: Start: 07-13-2015 Tetanus vaccination Tetanus: Every 10yrs [facility] Start: 2006 Fall risk assessment Falls Risk Assessment [facility] Start: 1991 Administration of herpes zoster vaccine Zoster Vaccines (1 of 2) [facility] Start: 1953 Depression screening using PHQ-9 (Patient Health Questionnaire 9) score Depression Screening (PHQ-2/9) [facility] Start: 1940 Screening for osteoporosis Dexa Scan [facility] Work Phone: [...] Phone: Payers Date Payer Category Payer Medicare [id number] 2006 Medicare MEDICARE MEDICAR E PART A & B [id number] 2006-Present [phone] CGS [id number] PART A CLAIMS [address] [address] [place] [address] [id number] 2005 Private Health Insurance [id number] 2005 Private Health Insurance CIG[employer] C IGNA PPO/EPO/FUNDAMENTAL CARE [id number] 2005-Present [phone] [address] [place] [address] [id number] 1940 Unknown [id number] 1940 Unknown [id number] 1940 Unknown [id number] 1940 Unknown [id number] Unknown Unknown [id number] Social History Date Type Detail Facility Start: 09-20-2022 End: 11-08-2022 Caffeine Use Caffeine Use [facility] Work Phone: Exercise History: Exercise History: Compr ehensive Internal Medicine Work Phone: Living Situation: Living Situation: Compr e[facility] Medicine Work Phone: Tobacco use: Tobacco use: [facility] Work Phone: Exercise History: Exercise History: Compr e[facility] Internal [facility]; [facility] Work Phone: Living Situation: Living Situation: [facility] ehensive Internal Medicine; [facility] Work Phone: Tobacco use: Tobacco use: [facility]; [facility] Work Phone: Start: 09-20-2022 Tobacco smoking status NHIS Never smoked tobacco [facility] Start: 09-20-2022 Tobacco use and exposure Smokeless tobacco non-user [facility] Start: 09-20-2022 End: 03-20-2023 Alcohol intake Lifetime non-drinker (finding) [facility] Start: 1940 Sex Assigned At Not on file [facility] Start: 09-20-2022 End: 11-08-2022 Gender identity Not on file [facility] Start: 09-10-2022 End: 11-08-2022 Exposure to SARS-CoV-2 (event) Not sure [facility] Clinical Notes 09-20-2022 to 03-20-2023 Emilio Phan MD - 03/20/2023 3:02 PM Fatou Jerry MA - 03/20/2023 2:40 PM Armaan Phan MD - 11/08/2022 2:30 PM Iesha Richardson MA - 11/08/2022 2:17 PM EDT Note Date & Type Note Facility 03-20-2023 History of Presen t illness Narrative [facility] [place] [address] [facility] [address] [facility] [address] Dept: [phone] Emilio Phan MD Altagracia Morales 83 y.o. [...] Negative. Psychiatric/Behavioral: Negative. documented in this encounter [facility] 11-08-2022 History of Presen t illness Narrative [facility] [address] [facility] [place] [address] [facility] [address] Dept: [phone] Emilio Phan MD [facility] 82 y.o. female Patient presents with [...] Negative. Psychiatric/Behavioral: Negative. documented in this encounter [facility] 09-20-2022 History of Presen t illness Narrative Review of Systems Constitutional: Negative. HENT: Positive for ear pain (a plugged feeling in right ear). Eyes: Positive for visual disturbance. Respiratory: Negative. Cardiovascular: Negative. Gastrointestinal: Negative. Endocrine: Negative. Genitourinary: Negative. Musculoskeletal: Negative. Skin: Negative. Allergic/Immunologic: Negative. Neurological: Negative. Hematological: Negative. Psychiatric/Behavioral: Negative. [facility] [address] [facility] [address] [facility] [address] Dept: [phone] Emilio Phan MD Altagracia Morales 82 y.o. [...] mood, normal affect TYMPANOSTOMY TUBE PLACEMENT NOTE (71106) PROCEDURE PERFORMED BY: Emilio Phan MD PROCEDURE [...] Type:Provider Instructions for Treatment How to Access [employer] Online using Patient Portal and [facility] [employer] Indication:Nonsmoker Start:21-Sep-2020 Instruction Type:Patient Education [...] Informa tion Online using Patient Portal and [facility] [employer] Indication:BMI 30.0-30.9,adult Start:08-Sep-2021 Instruction Type:Patient [...] Informa tion Online using Patient Portal and [facility] [employer] Indication:Nonsmoker Start:21-Sep-2020 Instruction Type:Patient Education [...] Informa tion Online using Patient Portal and [employer] Indication:Nonsmoker Start:05-Aug-2022 Instruction Type:Patient Education Patient [...] Informa tion Online using Patient Portal and [employer] Indication:Nonsmoker Start:18-Aug-2022 Instruction Type:Patient Education Patient Instructions Indication:Nonsmoker Start:18-Aug-2022 Instruction Type:Provider Instructions for Treatment Patient Instructions Indication:Nonsmoker Start:05-Aug-2022 Instruction Type:Provider Instructions for Treatment How to Access Health Informa tion Online using Patient Portal and [employer] Indication:Nonsmoker Start:05-Aug-2022 Instruction Type:Patient Education Patient Instructions Indication:BMI 30.0-30.9,adult Start:08-Sep-2021 Instruction Type:Provider Instructions for Treatment How to Access Health Informa tion Online using Patient Portal and [employer] Indication:BMI 30.0-30.9,adult Start:08-Sep-2021 Instruction Type:Patient Education [...] Informa tion Online using Patient Portal and [facility] [employer] Indication:Nonsmoker Start:21-Sep-2020 Instruction Type:Patient Education [...] Informa tion Online using Patient Portal and [facility] [employer] Indication:Nonsmoker Start:21-Sep-2020 Instruction Type:Patient Education [...] DATE CREATED AUTHOR AUTHOR'S ORGANIZ ATION 11/18/2022 [facility] Reason for Visit (unrecogniz ed section and content) Reason Comments f/u ear tube out Est pt Reason Comments Follow-up 6 month ear check Care Teams (unrecognized sec tion and content) Geographical Historian Relationship Specialty Start Date End Date Mera Hollingsworth DO [address] [address] PCP - General Internal Medicine 08/31/22 FOR [...] BE BASED ON THE PRIMARY CLINICAL RECORDS. [facility] [employer] [facility]. provides no warranty or guarantee of the accuracy or completeness of information in this document.
[2023-06-12] MEDS: 0.9% Normal Saline (1000mL) 1,000 ML 15 ML IV (16:00)
--- NOTE | 2023-06-12 16:13 | OP.CCLET_ITS ---
06/12/2023 Mera Rodrigues [address] [place] [address] Re : Upper GI endoscopy procedure for Altagracia Kathleenine Dear Dr. Rodrigues This procedure was performed on Monday, June 12, 2023. My impressions and recommendations are as follows: Impressions : - Benign-appearing esophageal stenosis. - Food in the lower third of the esophagus. Removal was successful. Recommendations : - Discharge patient to home. - Mechanical soft diet for 2 weeks. - Use Prilosec (omeprazole) 40 mg PO daily. - Repeat upper endoscopy in 2 weeks for retreatment. - Continue present medications. My findings are described in the full procedure note, which is enclosed. If I can be of further assistance, please feel free to contact me at Doctor phone number(s): , Work: . Sincerely, Janes Humphrey MD 06/12/2023 4:12:24 PM This report has been signed electronically.
--- NOTE | 2023-06-12 16:13 | OP.EGD_ITS ---
Patient Name: Altagracia Mesa Procedure Date: 06/12/2023 3:41 PM Date of : 1940 Age: 83 Procedure: Upper GI endoscopy Indications: Foreign body in the esophagus Providers: Janes Humphrey MD Medicines: Monitored Anesthesia Care Patient Profile: This is an 83 year old female. Refer to note in patient chart for documentation of history and physical. Complications: No immediate complications. Estimated blood loss: Minimal. Procedure: Pre-Anesthesia Assessment: - Prior to the procedure, a History and Physical was performed, and patient medications and allergies were reviewed. The patient's tolerance of previous anesthesia was also reviewed. The risks and benefits of the procedure and the sedation options and risks were discussed with the patient. All questions were answered, and informed consent was obtained. Prior Anticoagulants: The patient has taken no anticoagulant or antiplatelet agents. After reviewing the risks and benefits, the patient was deemed in satisfactory condition to undergo the procedure. After obtaining informed consent, the endoscope was passed under direct vision. Throughout the procedure, the patient's blood pressure, pulse, and oxygen saturations were monitored continuously. The gastroscope was introduced through the mouth, and advanced to the second part of duodenum. The upper GI endoscopy was accomplished without difficulty. The patient tolerated the procedure well. Scope In: 3:50:16 PM Scope Out: 3:59:56 PM Total Procedure Duration Time 0 hours 9 minutes 40 seconds Findings: One benign-appearing, intrinsic moderate (circumferential scarring or stenosis; an endoscope may pass) stenosis was found at the gastroesophageal junction. The stenosis was traversed. There was retained food in the esophagus which was passed forward using direct pressure. Impression: - Benign-appearing esophageal stenosis. - Food in the lower third of the esophagus. Removal was successful. Recommendation: - Discharge patient to home. - Mechanical soft diet for 2 weeks. - Use Prilosec (omeprazole) 40 mg PO daily. - Repeat upper endoscopy in 2 weeks for retreatment. - Continue present medications. Procedure Code(s): --- Professional --- 12164, Esophagogastroduodenoscopy, flexible, transoral; with removal of foreign body(s) Diagnosis Code(s): --- Professional --- K22.2, Esophageal obstruction T18.128A, Food in esophagus causing other injury, initial encounter T18.108A, Unspecified foreign body in esophagus causing other injury, initial encounter CPT copyright 2021 [employer]. All rights reserved. The codes documented in this report are preliminary and upon outpatient coder review may be revised to meet current compliance requirements. Janes Humphrey MD 06/12/2023 4:12:24 PM This report has been signed electronically. Number of Addenda: 0 Note Initiated On: 06/12/2023 3:41 PM
[2023-06-12] MEDS: Ipratropium/Albuterol Sulfate 3 ML AMPUL.NEB INHALATION (16:17)
== END 2023-06-12 16:41 | disposition home or self-care (01) ==
LOC: ED 15:21 → SDC 15:29 → ACINP 15:30
PROVIDERS: Emergency Provider Emergency Medicine; PCP Internal Medicine; Visit Provider Surgery
PROC: 0DJ08ZZ Inspection of Upper Intestinal Tract, Via Natural or Artificial Opening Endoscopic (ICD-10-PCS; CPT 43235; principal; 2023-06-12 15:30)
DX: T18.108A Unspecified foreign body in esophagus causing other injury, initial encounter (principal); K22.2 Esophageal obstruction; E55.9 Vitamin D deficiency, unspecified; Z80.0 Family history of malignant neoplasm of digestive organs; X58.XXXA Exposure to other specified factors, initial encounter
CPT/HCPCS: 43247; 99283; J7030; J1610

== ENCOUNTER 2023-06-26 10:54 | Day surgery (SDC) | payer MEDICARE, OTHER, SELFPAY ==
[2020-02-06 09:00] VITALS: BMI 30.7
[2023-06-26 11:11] VITALS: BP 156/75; PULSE 71; RESP 18; TEMP 36.4; O2SAT 97; BMI 29.8
[2023-06-26] MEDS: Lactated Ringers 1,000 ML 15 ML IV (11:16)
--- NOTE | 2023-06-26 11:43 | PCM.HP.STD ---
HPI - General [facility] Narrative CAITY MORALES, is a 83 F who presents for EGD with dilation. The patient had esophageal foreign body that was stuck on . The patient has been eating soft foods since then and has had no issues. [facility] Medical History (Updated 06/26/23 @ 11:[address] Janes Humphrey MD) Arthritis Cancer Ductal carcinoma in situ (DCIS) of right breast Nipple discharge Nipple discharge, bloody Non-smoker Positive colorectal cancer screening using Cologuard test Post-menopausal Vitamin D deficiency Wears glasses Home Medications calcium carbonate 500 mg calcium (1,250 mg) tablet (Calcium 500) 500 mg PO BID 08/08/19 [History Last Taken Unknown] mecobalamin (vitamin B12) 5,000 mcg disintegrating tablet 5,000 mcg PO DAILY 08/08/19 [History Last Taken Unknown] multivitamin with minerals (Hair,Skin and Nails tablet) 1 tab PO BID 08/08/19 [History Last Taken Unknown] ergocalciferol (vitamin D2) 1,250 mcg (50,000 unit) capsule 50,000 unit PO Q7D 01/29/20 [History Last Taken Unknown] vitamins A,C,Q-ojfj-zqbzjv 4,296 mcg-226 mg-90 mg capsule 1 tab PO DAILY 01/29/20 [History Last Taken Unknown] omeprazole 20 mg tablet,delayed release 20 mg PO DAILY #30 tabs 06/12/23 [Rx Last Taken Unknown] Allergy/AdvReac Type Severity Reaction Status Date / Time Penicillins Allergy Severe Rash Verified 06/26/23 11:10 Family History Brother Hypercholesterolemia Colon cancer Sister Diabetes Hypertension Father Diabetes Hypertension Surgical History (Updated 06/20/23 @ 13:31 by Ophelia Leija) History of esophagogastroduodenoscopy (EGD) History of right breast biopsy History of right cataract surgery S/P colonoscopy Status post right breast lumpectomy Status post right breast lumpectomy Social History household members: none Smoking Status: Never smoker second hand exposure: No alcohol intake: never substance use type: does not use albert/oriental orthodox: Gnosticism seatbelt use: always do you feel safe at home: Yes ROS Constitutional Constitutional: Denies anorexia, chills or fatigue Eyes Eyes: Denies blurry vision ENT HEENT: Reports dysphagia; Denies abnormal hearing Cardiovascular Cardiovascular: Denies chest pain Respiratory/Chest Respiratory/Chest: Denies cough or dyspnea Gastrointestinal Gastrointestinal: Denies abdominal pain, nausea or vomiting Genitourinary Genitourinary: Denies change in urinary stream Musculoskeletal Musculoskeletal: Denies abnormal gait Psychiatric Psychiatric: Denies anxiety Endocrine Endocrinology: Denies flushing Hematologic/Lymphatic Hematologic/Lymphatic: Denies easy bleeding Vital Signs Vital Signs Vital Signs: 06/26/23 11:11 06/26/23 11:11 Temperature 97.5 F L Temperature Source Temporal Pulse Rate 71 Respiratory Rate 18 Respiratory Pattern Normal Blood Pressure 156/75 H Blood Pressure Mean 102 Blood Pressure Source Monitor Blood Pressure Position Sitting Blood Pressure Location Left Arm Pulse Ox 97 Oxygen Delivery Method Room Air Weight Weight: 174 lb Body Mass Index (BMI) 29.8 Physical Exam Const alert and oriented x3 HEENT normocephalic Eyes PERRL Resp normal respiratory effort and normal air movement Cardio regular rate and regular rhythm GI soft to palpation, non-tender and non-distended Extremity normal to inspection Assessment & Plan Assessment/Plan (1) Dysphagia: QUALIFIERS: Dysphagia type: esophageal phase Qualified Code(s): R13.19 - Other dysphagia PLAN: CAITY MORALES, is a 83 F who presents for EGD with dilation. The patient had esophageal foreign body that was stuck on . I was able to advance the food bolus through but she had a stricture as well and with counseling it was I did not want to perform balloon dilation at that time. She is here for balloon dilation now. I discussed EGD with her as well as the risks of bleeding, perforation, need for transfer for further surgery. Patient understands the risks and is willing to proceed. She stopped her fish oil 1 week ago. Janes Humphrey MD Pager: [facility] [address] [place] [address], [address] [place] [address] Office:
[2023-06-26 12:10] VITALS: BP 156/75; BP 98/43; PULSE 62; RESP 16; TEMP 36.3; O2SAT 95
--- NOTE | 2023-06-26 12:10 | OP.CCLET_ITS ---
06/26/2023 Mera Rodrigues [address] [place] [address] Re : Upper GI endoscopy procedure for Altagracia Mesa Dear Dr. Rodrigues This procedure was performed on Monday, June 26, 2023. My impressions and recommendations are as follows: Impressions : - No specimens collected. Recommendations : - Discharge patient to home. - Soft diet for 2 days. - Continue present medications. My findings are described in the full procedure note, which is enclosed. If I can be of further assistance, please feel free to contact me at Doctor phone number(s): , Work: . Sincerely, Janes Humphrey MD 06/26/2023 12:10:09 PM This report has been signed electronically.
--- NOTE | 2023-06-26 12:10 | OP.EGD_ITS ---
Patient Name: Altagracia Mesa Procedure Date: 06/26/2023 11:48 AM Date of : 1940 Age: 83 Procedure: Upper GI endoscopy Indications: Dysphagia Providers: Janes Humphrey MD Referring MD: Mera Rodrigues Medicines: Monitored Anesthesia Care Patient Profile: This is an 83 year old female. Refer to note in patient chart for documentation of history and physical. Complications: No immediate complications. Procedure: Pre-Anesthesia Assessment: - Prior to the procedure, a History and Physical was performed, and patient medications and allergies were reviewed. The patient's tolerance of previous anesthesia was also reviewed. The risks and benefits of the procedure and the sedation options and risks were discussed with the patient. All questions were answered, and informed consent was obtained. Prior Anticoagulants: The patient has taken no anticoagulant or antiplatelet agents. After reviewing the risks and benefits, the patient was deemed in satisfactory condition to undergo the procedure. After obtaining informed consent, the endoscope was passed under direct vision. Throughout the procedure, the patient's blood pressure, pulse, and oxygen saturations were monitored continuously. The Endoscope was introduced through the mouth, and advanced to the third part of duodenum. The upper GI endoscopy was accomplished without difficulty. The patient tolerated the procedure well. Scope In: 11:59:08 AM Scope Out: 12:05:24 PM Total Procedure Duration Time 0 hours 6 minutes 16 seconds Findings: One benign-appearing, intrinsic moderate stenosis was found at the gastroesophageal junction. This stenosis measured less than one cm (in length). The stenosis was traversed. A TTS dilator was passed through the scope. Dilation with a 15-16.5-18 mm balloon dilator was performed to 19 mm. The dilation site was examined and showed moderate improvement in luminal narrowing. Estimated blood loss was minimal. The stomach was normal. The examined duodenum was normal. Impression: - No specimens collected. Recommendation: - Discharge patient to home. - Soft diet for 2 days. - Continue present medications. Procedure Code(s): --- Professional --- 04689, Esophagogastroduodenoscopy, flexible, transoral; with transendoscopic balloon dilation of esophagus (less than 30 mm diameter) Diagnosis Code(s): --- Professional --- R13.10, Dysphagia, unspecified CPT copyright 2021 [employer]. All rights reserved. The codes documented in this report are preliminary and upon adult crossing guard review may be revised to meet current compliance requirements. Janes Humphrey MD 06/26/2023 12:10:09 PM This report has been signed electronically. Number of Addenda: 0 Note Initiated On: 06/26/2023 11:48 AM
[2023-06-26 12:15] VITALS: BP 156/75; BP 98/50; PULSE 63; RESP 16; O2SAT 94
[2023-06-26 12:20] VITALS: BP 108/51; BP 156/75; PULSE 63; RESP 16; O2SAT 94
[2023-06-26 12:25] VITALS: BP 116/56; BP 156/75; PULSE 63; RESP 16; TEMP 36.7; O2SAT 95
[2023-06-26 12:39] VITALS: BP 156/75
== END 2023-06-26 12:49 | disposition home or self-care (01) ==
LOC: EN 10:55 → AC 10:56
PROVIDERS: PCP Internal Medicine; Referring Provider Internal Medicine; Visit Provider Surgery
PROC: 0DJ08ZZ Inspection of Upper Intestinal Tract, Via Natural or Artificial Opening Endoscopic (ICD-10-PCS; CPT 43235; principal; 2023-06-26 13:25)
DX: R13.10 Dysphagia, unspecified (principal); E55.9 Vitamin D deficiency, unspecified; Z79.899 Other long term (current) drug therapy; K22.2 Esophageal obstruction
CPT/HCPCS: 43249; J7120; J2405

== ENCOUNTER → 2023-08-30 | Outpatient (CLI) | payer MEDICARE, OTHER, SELFPAY ==
[2020-02-06 09:00] VITALS: BMI 30.7
--- NOTE | 2023-08-30 14:31 | BD_ITS ---
STUDY: DUAL ENERGY X-RAY ABSORPTIOMETRY / DXA REASON FOR EXAM: Female, 83 years old. 733.90OsteopeniaBONE DENSITY REASON FOR EXAM TECHNIQUE: Bone Mineral Density (BMD) measurements of lumbar spine and bilateral hips were obtained. COMPARISON: Comparison is made with prior study dated January 02, 2020. FINDINGS: Lumbar Spine (L1-L4): g/cm2 (0.990) / T-score (-0.5) / Z-score (2.3) Findings are suggestive of normal bone density with a low fracture risk. Left Femur Total: g/cm2 (0.841) / T-score (-0.8) / Z-score (1.4) Left Femoral Neck: g/cm2 (0.722) / T-score (-1.1) / Z-score (1.3) Right Femur Total: g/cm2 (0.844) / T-score (-0.8) / Z-score (1.4) Right Femoral Neck: g/cm2 (0.763) / T-score (-0.8) / Z-score (1.6) The T-Scores on the most recent prior examination were: Lumbar Spine (L1-L4): There has been worsening of bone density since the previous examination. Left Femur Total: which represents a worsening of 3.7%. Right Femur Total: which represents a worsening of 5.1%. BD/Dexa Bone Density Study IMPRESSION: The patient is considered osteopenic as outlined below according to World David Organization (WHO) criteria with a low fracture risk. There has been worsening of bone density since the previous examination. Reference Information: The T-score is the number of standard deviations above or below the standard which is normal for young adults at their peak bone mineral density. The World Health Organization (WHO) interprets the T-scores as follows: Above -1 Normal bone density Between -1 and -2.5 Osteopenia Equal to / or below -2.5 Osteoporosis As a practical clinical guideline, osteopenia may be graded as follows: Mild -1 through -1.5 Moderate -1.6 through -2.0 Severe -2.1 through -2.4 The Z-score is the number of standard deviations above or below age-matched controls. A Z-score of less than -1.5 would be considered abnormal. References: 1. NIH Osteoporosis and Related Bone Diseases www osteo.org 2. International Society for Clinical Densitometry www iscd.org 3. National Osteoporosis Foundation www nof.org Electronically Signed: Carlos Manuel Franco MD at 12:52 EDT ,
== END | disposition home or self-care (01) ==
LOC: OPBD 14:28
PROVIDERS: PCP Internal Medicine; Referring Provider Internal Medicine; Visit Provider Internal Medicine
DX: M85.89 Other specified disorders of bone density and structure, multiple sites (principal)
CPT/HCPCS: 77080

== ENCOUNTER → 2024-01-11 | Outpatient (CLI) | payer MEDICARE, OTHER, SELFPAY ==
[2020-02-06 09:00] VITALS: BMI 30.7
--- NOTE | 2024-01-11 10:59 | BI_ITS ---
MAMMOGRAPHY - BILATERAL SCREENING REASON FOR EXAM: Female, 83 years old. Routine annual screening examination. PERTINENT HISTORY: Personal history of breast cancer. Prior right lumpectomy with radiation treatment. TECHNIQUE: Digital bilateral breast alejandra (3D mammographic acquisition) in the CC and MLO projections. 2-D mediolateral oblique (MLO) and craniocaudad (CC) views of both breasts were obtained. CAD: Full Field Digital Mammography with Computer Added Detection was performed. COMPARISON: Comparison is made with prior study dated January 09, 2023 and January 05, 2022. FINDINGS: Breast Composition: The breasts are heterogeneously dense, which may obscure small masses. There are no dominant masses or suspicious calcifications. No other significant abnormalities are identified. There has been no significant change since the prior study. BI/SCRN MAMM (CAD)W/ALEJANDRA BILAT IMPRESSION: Stable bilateral screening mammogram. Yearly follow-up mammogram recommended. (A) ASSESSMENT CATEGORY: BIRADS Category 1: Negative. A letter regarding these results will be sent to the patient by the facility within 30 days. Approximately 10% of breast cancers are not detected by mammography. A normal mammogram should not delay biopsy of a clinically suspicious abnormality. [id number] Electronically Signed: Carlos Manuel Franco MD at 12:13 EDT ,
== END | disposition home or self-care (01) ==
LOC: OPBI 10:59
PROVIDERS: PCP Internal Medicine; Referring Provider Internal Medicine Hematology & Oncology; Visit Provider Internal Medicine Hematology & Oncology
DX: Z12.31 Encounter for screening mammogram for malignant neoplasm of breast (principal); Z85.3 Personal history of malignant neoplasm of breast
CPT/HCPCS: 77063; 77067

== ENCOUNTER → 2025-01-13 | Outpatient (CLI) | payer MEDICARE, OTHER, SELFPAY ==
[2024-10-01 09:49] VITALS: BMI 30.7
--- NOTE | 2025-01-13 14:30 | BI_ITS ---
EXAM: SCRN MAMM (CAD)W/ALEJANDRA BILAT DATE: 01/13/2025 CLINICAL HISTORY: F, Age 84 y/o , SCREENING TECHNIQUE: SCRN MAMM (CAD)W/ALEJANDRA BILAT COMPARISON: Prior exam(s) dated 01/11/2024 and 01/09/2023. FINDINGS: TISSUE DENSITY: There are scattered areas of fibroglandular density. Bilateral Breast Mammographic Findings: There is a 2 cm lobulated masslike density in the inferior aspect of the right breast which requires additional workup. This is best appreciated on the CC view. Benign round calcifications and punctate calcifications are seen in the right breast. Benign-appearing round calcifications are seen in the left breast. No suspicious masses suspicious cluster of microcalcifications, architectural distortion or secondary sign of malignancy is identified in the left breast. BI/SCRN MAMM (CAD)W/ALEJANDRA BILAT IMPRESSION: There is a 2 cm lobulated masslike density in the inferior aspect of the right breast which requires additional workup. The patient should return for an LM view of the right breast as well as spot compre ssion CC and spot compression MLO view of the right breast lobulated masslike density. An ultrasound will also most likely b e needed. OVERALL FINAL ASSESSMENT BI-RADS 0: INCOMPLETE - NEED ADDITIONAL IMAGING EVALUATION. RECOMMENDATION: Additional Views obtained/call backs A letter with findings and recommendations will be mailed to the patient. Reading Location: [id number]
== END | disposition home or self-care (01) ==
PROVIDERS: PCP Internal Medicine; Referring Provider Internal Medicine Hematology & Oncology; Visit Provider Internal Medicine Hematology & Oncology
DX: Z12.31 Encounter for screening mammogram for malignant neoplasm of breast (principal)
CPT/HCPCS: 77063; 77067

== ENCOUNTER → 2025-01-16 | Outpatient (CLI) | payer MEDICARE, OTHER, SELFPAY ==
[2024-10-01 09:49] VITALS: BMI 30.7
--- NOTE | 2025-01-16 09:26 | US_ITS ---
PROCEDURE: BREAST LIMITED UNILATERAL 01/16/2025 REASON FOR EXAM: F, Age 84 y/o , ABN MAMM COMPARISON: Prior mammogram dated January 17, 2000 as well as prior mammogram dated January 13, 2025.. TECHNIQUE: BREAST LIMITED UNILATERAL FINDINGS: The lower aspect of the right breast was examined with ultrasound. The patient is status post lumpectomy. There is a 7 mm x 6 mm x 6 mm cyst with peripheral septation. Increased vascularity is seen along the periphery. Tissue diagnosis recommended. US/Breast Limited Unilateral IMPRESSION: 7 mm x 6 mm x 6 mm anechoic structure with a echogenic focus in its periphery w ith increased vascularity. This is at the 6 o'clock position of the breast at 2 cm from the nipple. Tissue diagnosis recom mended. BI-RADS 4: SUSPICIOUS RECOMMENDATION: Biopsy Recommended Reading Location: [id number]
--- NOTE | 2025-01-16 09:26 | BI_ITS ---
EXAM: DIAG MAMM W/CAD, UNILAT N/A CLINICAL HISTORY: F, Age 84 y/o , ABN MAMM. Status post lumpectomy. TECHNIQUE: DIAG MAMM W/CAD, UNILAT.. Compression spot views as well as 3D views were obtained. COMPARISON: Prior exam(s) dated January 13, 2025.. FINDINGS: TISSUE DENSITY: There are scattered areas of fibroglandular density. Bilateral Breast Mammographic Findings: No significant masses, calcifications or other abnormalities are identified. The patient is status post lumpectomy in the retroareolar region of the right breast with resultant breast deformity and postoperative scarring and inversion of the nipple shadow. BI/DIAG MAMM W/CAD, UNILAT IMPRESSION: Status post lumpectomy with resultant scarring and breast deformity. OVERALL FINAL ASSESSMENT BI-RADS 2: BENIGN RECOMMENDATION: Routine annual follow-up in 1 Year A letter with findings and recommendations will be mailed to the patient. Reading Location: [facility]
== END | disposition home or self-care (01) ==
LOC: OPBI 09:25
PROVIDERS: PCP Internal Medicine; Referring Provider Internal Medicine Hematology & Oncology; Visit Provider Internal Medicine Hematology & Oncology
DX: R92.8 Other abnormal and inconclusive findings on diagnostic imaging of breast (principal)
CPT/HCPCS: 76642; 77061; 77065; G0279

== ENCOUNTER → 2025-01-21 | Outpatient (CLI) | payer MEDICARE, OTHER, SELFPAY ==
[2024-10-01 09:49] VITALS: BMI 30.7
--- NOTE | 2025-01-21 09:00 | BRBX_PTH ---
PATIENT: CAITY MORALES LOC: [facility] U#:[id number] AGE/SX: 84/F ROOM: RE01/21/[address]: Dr. Janes Humphrey MD : 1940 BED: DIS: 01/21/2025 SPEC #: [id number] RECD: 01/21/25 09:33 STATUS: MELLISSA REJay #: [id number] [place]: 01/21/25 09:[address]: Janes Humphrey DEPT: SURGICAL PATHOLOGY RECD BY: Marino Velasquez ENTERED: 01/21/25 10:26 SP TYPE: BREAST BX OTHR DR: Dr. Mera Rodrigues, DO Tissues: A - Right breast, NOS Procedures: Surgery Specimen Level IV HEADER OPERATION: Right breast biopsy PRE-OP DIAGNOSIS: Right breast mass TISSUE SUBMITTED: A- Right breast mass MICROSCOPIC DIAGNOSIS A. Breast, right, core biopsy: - Benign fibrofatty breast tissue with dense fibrosis and few ducts. - Focal calcification. MICROSCOPIC DESCRIPTION Slides are reviewed. GROSS DESCRIPTION A . Received in formalin labeled with the patient's name and date of . Designated as R breast is a 1.6 x 0.9 x 0.2 cm aggregate of richey-yellow fatty tissue cores. Entirely submitted in 1 cassette. Cold ischemic time: <1-minuteFormalin fixation time: 10 hours, 30 minutes [place] 01/21/2025 CPT:14320
== END | disposition home or self-care (01) ==
LOC: LABSPEC 09:41
PROVIDERS: PCP Internal Medicine; Referring Provider Surgery; Visit Provider Surgery
DX: N63.10 Unspecified lump in the right breast, unspecified quadrant (principal); N60.31 Fibrosclerosis of right breast
CPT/HCPCS: 88305